=== PATIENT | male | born 1955 | race Caucasian/White ===

== ENCOUNTER 2024-01-03 13:25 | Day surgery (SDC) | payer MEDICARE, BC, SELFPAY ==
[2024-01-03 14:17] VITALS: BMI 26.8
--- NOTE | 2024-01-03 18:25 | ITS.CL.IMPLP ---
Roll Line Operator - Implant Loop
Implant Loop
Procedure Report:
Primary Physician: Zachary Craig MD
Primary Nuclear Station Operator: Dejuan Lima MD
Procedure Date: 01/03/2024
Procedure: Placement of a loop recorder.
History/Indication:
1. See office H&P for complete history.
2. Patient is a pleasant 68-year-old male with a past medical history significant for heart failure with reduced ejection fraction, severe MR, ischemic cardiomyopathy, mixed hyperlipidemia, ischemic stroke, MEAGAN, PAF who presents for elective ILR
insertion for long-term arrhythmia surveillance and monitoring given history and comorbidities.
Method:
After informed consent was obtained, the patient was brought to the EP laboratory holding area in a fasting, non-sedated state. Peripheral access was established. The left chest was prepared and draped in a sterile fashion. A 'time out' was
called. Local anesthesia was injected in the subcutaneous tissue. The ILR was injected under the skin. Topical skin adhesive was applied. Following the procedure, the patient was taken to the recovery area in stable condition. No complications
were noted.
Device Data:
[employer]; Model# [id number]; Serial# [id number]
Conclusion:
Successful placement of a loop recorder.
Recommendations:
1. Follow-up will be arranged in the [facility] in 7-10 days for wound check.
2. Routine ILR care.
3. Per Dr. Lima recommendations, DC Eliquis, start 81 mg ASA daily; if recurrence of AF, resume Eliquis indefinitely
Natanael Walker, DO
Clinical Cardiac Hasher Operator
cc: Zachary Craig MD; Dejuan Lima MD
== END 2024-01-03 16:14 | disposition home or self-care (01) ==
LOC: CATH 13:25
PROVIDERS: ATTENDING PHYSICIAN Internal Medicine Cardiovascular Disease; FAMILY PHYSICIAN Family Medicine; OTHER PHYSICIAN Internal Medicine Interventional Cardiology
DX: Z09 Encounter for follow-up examination after completed treatment for conditions other than malignant neoplasm (principal); I50.22 Chronic systolic (congestive) heart failure; I25.5 Ischemic cardiomyopathy; E78.2 Mixed hyperlipidemia; Z86.73 Personal history of transient ischemic attack (TIA), and cerebral infarction without residual deficits; I48.0 Paroxysmal atrial fibrillation
CPT/HCPCS: 33285; C1764

== ENCOUNTER 2024-03-11 16:24 | Inpatient (IN) | payer MEDICARE, BC, SELFPAY ==
[2024-03-11] VITALS (18 sets, daily range): BP systolic 82–121; BP diastolic 61–91; BMI 25.3; BMI 25.9
[2024-03-11 14:41] LABS: % Basophils 0.4 % (0-2); % Eosinophils 0.1 % (0-6); % Immature Granulocytes 0.4 % (0-0.5); % Lymphocytes 8.1 % (20.5-51.1); % Monocytes 8.3 % (1.7-9.3); % Neutrophils 82.7 % (42.2-75.2); Absolute Lymphocytes 0.8 10^3/uL (1.2-3.4); Absolute Monocytes 0.8 10^3/uL (0.1-0.6); Absolute Neutrophils 8.1 10^3/uL (1.4-6.5); Hematocrit 40.8 % (39.0-52.0); Hemoglobin 13.8 g/dL (13.0-18.0); Mean Corp Hgb Conc. 33.8 g/dL (33.0-37.0); Mean Corpuscular Volume 91.7 fL (80.0-94.0); Mean Platelet Volume 10.3 fL (7.4-10.4); Nucleated Red Blood Cells % 0 % (-); Platelet Count 160 10^3/uL (130-400); Red Blood Cell Count 4.45 10^6/uL (4.70-6.10); Red Cell Dist. Width 12.9 % (11.5-14.5); White Blood Cell Count 9.9 10^3/uL (4.8-10.8)
--- NOTE | 2024-03-11 14:41 | ED.GENMED ---
History of Present Illness
General
Chief Complaint: Heart Rate Problem
Source: patient and spouse
Exam Limitations: none
Time Seen by Provider: 03/11/24 14:21
History of Present Illness
History of Present Illness:
Patient with recent diagnosis of atrial fibrillation/flutter. Started Eliquis 4 days ago. Scheduled for JOHN cardioversion next week. Has remained with a heart rapid heartbeat 1 60-200 last 4 to 5 days. Borderline blood pressure. However started
feeling ill today. Tested positive for COVID. No chest pain or shortness of breath.
Past History
Past History
ED Past Medical History: Arrthythmia, CAD and CVA
ED Past Surgical History: Cardiac (Cardiac stent) and Other (Unavailable)
Social History
Tobacco: Former smoker
Alcohol: None
Drug: None
Personal:
Living: with family
Family History
Family History: Negative Diabetes, Hypertension or CAD
Review of Systems
Review of Systems
All Other Systems: Not applicable
Constitutional: Reports fever; Denies chills
Respiratory: Denies cough or trouble breathing
Cardiac: Denies chest pain
Phy Exam
Physical Exam
Physical Exam:
GENERAL: Alert and oriented in no apparent distress
EYE: Orbits normal.
NECK: Supple, no significant adenopathy.
ENT: Pharynx without erythema
CARDIAC: Tachycardic and regular no murmur
LUNGS: No respiratory distress. Some rhonchi in the bases
ABDOMEN: Soft, without focal tenderness or distention
NEUROLOGICAL: Alert and oriented , grossly non-focal
SKIN: Warm and dry, no rash or lesion, no discoloration, skin intact.
MUSCULOSKELETAL: No edema,no deformity.Good color
PSYCH: Normal and appropriate interaction.
Course
Orders/Labs/Results
Orders:
Orders
03/11/24 Lunch
Cholesterol Lowering
At Your Request: Full Participation
Does patient need a safe tray?: No
Cholesterol Lowering: Sodium, 2 Gram
03/11/24 13:57
ECG [Electrocardiogram (*1)] Urgent
Reason for Study: Tachycardia
03/11/24 13:58
EKG- Treatment ONCE
03/11/24 14:23
Complete Blood Count/With Diff Urgent
Comprehensive Metabolic Panel Urgent
NT-proBNP Urgent
Comment: PRO BNP ADDED ON BY FLOOR 3:40PM 03-11-24
Troponin I Urgent
03/11/24 14:37
CXR Port [CR Chest Portable - 1 View] Urgent
Comment:
Reason For Exam: aflutter. covid pos
Reason Study Needs to be Portable: Other
03/11/24 14:41
COVID-19 Antigen Urgent
Source: Nasal Swab
03/11/24 15:18
Diltiazem 125 mg/125 ml Nss [Cardizem] 125 mg in 125 ml IV NOW
Initial dose in mg/hr, then titrate:: 5
Titrate to keep:: Heart rate 80-100 bpm
Titrate by mg/hr:: 5 mg/hr
Frequency of titrations (minutes):: 15
Maximum dose in mg/hr:: 15
03/11/24 15:38
Add On- LAB Urgent
Tests Added?: pro-BNP
03/11/24 16:00
Admit/Transfer Patient As Directed
Co-Sign Provider:
Level of Care: Inpatient admission
Assign to:: Telemetry
Physician / Group: Dean richards - hospitalists
Diagnosis: rapid Afib
Reason for Telemetry: Medication for Arrhythmia
Date to Stop Telemetry: 03/13/24
Time to Stop Telemetry: 11:00
Reason for Hospitalization: Afib with RVR - IV Cardizem
Expected length of stay greater than two midnights?: Yes
ELOS- Estimated Length of Stay in days: 3
I certify the patient meets the requirements for IP care: Yes
PRN Pain Medication Management As Directed
May give lesser potent ordered pain med per pt: Yes
preference::
Protocol:: Medication orders for pain may be administered in a
manner that supports deferring to patient preference
when the pt is:
- Requesting an ordered lesser potent pain medication.
Least to most potent pain medications are defined
as: acetaminophen < NSAID < tramadol < opioids
(morphine, oxycodone, hydromorphone).
- Requesting a lesser dose of the same medication IF
ORDERED.
- Requesting a less intrusive route of administration
if both routes are prescribed by the provider (PO <
IV).
03/11/24 16:01
Code Status As Directed
Resuscitation Status: Full Code
03/11/24 17:47
Bisacodyl [Dulcolax] 10 mg RECTAL [id number] PRN
Docusate W/Senna [Senokot-S] 1 tablet PO BIDPRN PRN
Ipratropium/Albuterol Sulfate [Duoneb] 3 ml INH R Q4HPRN PRN
Ondansetron Injectable [Zofran] 4 mg IV Q6HPRN PRN
Polyethylene Glycol Powder [Miralax] 17 grams PO DAILYPRN PRN
03/11/24 17:47
CARDIOLOGY CONSULT Routine
Consulting Provider: Erick Montano
Was physician already notified: Yes
Activity As Directed
Activity Level: As Tolerated
Intake/ Output As Directed
Frequency: q12h
Pneumatic Compression Sleeves As Directed
Type: Knee high
Precautions As Directed
Type of Precautions: Airborne
Droplet
Vital Signs As Directed
Frequency: Per unit guidelines
Weight As Directed
Frequency: Daily
DX Deep Vein Thrombosis Video Routine
03/11/24 17:55
Acetaminophen [Tylenol] 500 mg PO Q6HPRN PRN
03/11/24 20:00
Apixaban [Eliquis] 5 mg PO BID
03/11/24 21:00
Troponin I Q6H
03/12/24 03:00
Troponin I Q6H
03/12/24 06:00
Basic Metabolic Panel IN AM
Complete Blood Count/No Diff IN AM
TSH Reflex To Free T4 IN AM
03/12/24 08:00
Atorvastatin [Lipitor] 80 mg PO DAILY
03/13/24 11:00
DC Protocol for Telemetry ONCE
Abnormal Lab Results
03/11/24 03/11/24
14:23 14:41
RBC 4.45 L 10^6/uL
(4.70-6.10)
Absolute Neuts (auto) 8.1 H 10^3/uL
(1.4-6.5)
Absolute Lymphs (auto) 0.8 L 10^3/uL
(1.2-3.4)
Absolute Monos (auto) 0.8 H 10^3/uL
(0.1-0.6)
Neutrophils % 82.7 H %
(42.2-75.2)
Lymphocytes % 8.1 L %
(20.5-51.1)
BUN 30 H mg/dl
(9-20)
Glucose 119 H mg/dl
(70-99)
AST 61 H U/L
(17-59)
ALT 80 H U/L
(0-50)
Troponin I 0.040 H* ng/ml
SARS-CoV-2 Antigen Positive A
(Negative)
03/11/24 14:23
03/11/24 14:23
Vital Signs
Initial and Last Documented VS:
Initial Vital Signs
Temp Pulse Resp BP Pulse Ox
99.4 F 169 20 114/81 97
03/11/24 13:54 03/11/24 13:54 03/11/24 13:54 03/11/24 13:54 03/11/24 13:54
Last Documented Vital Signs
Temp Pulse Resp BP Pulse Ox
100.1 F 89 18 121/68 99
03/11/24 18:12 03/11/24 18:12 03/11/24 18:12 03/11/24 18:12 03/11/24 18:12
*Radiology
Radiology exam reviewed: radiology read reviewed (Possible mild CHF)
*Pulse Oximetry
Patient hypoxic: no
*EKG
Interpreted by ED Provider?: Yes
Interpretation: abnormal
Comparison EKG: changes noted
Heart Rate: 172
Rate: tachycardiac
Rhythm: atrial flutter
[place]: normal axis
QRS Pattern: normal QRS
Ischemia: non-specific ST changes
*Warehouse Engineer Interpretation
Rate: tachycardiac
Interpretation: abnormal
Heart Rate: 142
Rhythm: atrial flutter
*Critical Care Note
Total Time (30-74mins, 75-104mins- exclusive of procedures): Not Applicable
Update Note
Update Note:
Atrial flutter/RVR prolonged. Not responding metoprolol. Warrants inpatient management and rate control or possible antiarrhythmic. Has not been on anticoagulation long enough for a routine cardioversion. Secondary complicated by COVID. Stable
from a COVID standpoint
ED Attending Note
-
Portions of this chart may have been created with voice recognition software.� Occasional wrong word or��sound alike� substitutions may have occurred due to the inherent limitations of voice recognition software.
Discharge Plan
Departure
Patient Disposition: Admit
Date of Disposition: 03/11/24
Time of Disposition: 14:44
Presentation/result/management discussed w/ accepting MD/DO: Cardiology
Discharge Problem:
Atrial flutter/RVR, Acute COVID infection
Interventions
Interventions:
*Risk Screen - Suicide Last Done: 03/11/24 14:11
*General Assessment Last Done: 03/11/24 14:11
*Neglect/Abuse Screening Last Done: 03/11/24 14:11
ED- Fall Risk Assessment Last Done: 03/11/24 14:15
*ED COVID-19 Vaccine History Last Done: 03/11/24 14:11
*Nursing Disposition Last Done: 03/11/24 17:44
ED- Cardiac Assessment Last Done: 03/11/24 14:15
ED- Pulmonary Assessment Last Done: 03/11/24 14:15
Discharge Date and Time
Discharge Date/Time: 03/11/24 17:45
[2024-03-11 14:49] LABS: ALT (SGPT) 80 U/L (0-50); AST (SGOT) 61 U/L (17-59); Albumin 4.4 g/dl (3.5-5.0); Alkaline Phosphatase 71 U/L (38-126); Blood Urea Nitrogen 30 mg/dl (9-20); Calcium 9.5 mg/dl (8.4-10.2); Carbon Dioxide 23 mmol/L (22-30); Chloride 106 mmol/L (98-107); Estimated Creatinine Clearance 73 ml/min; Glucose 119 mg/dl (70-99); Potassium 4.4 mmol/L (3.5-5.1); Sodium 139 mmol/L (135-145); Total Bilirubin 0.9 mg/dl (0.2-1.3); Total Protein 6.7 g/dl (6.3-8.2); eGFR > 60.00
[2024-03-11 14:56] LABS: COVID-19 Antigen Positive (Negative)
--- NOTE | 2024-03-11 15:14 | CON.CAR ---
Addendum entered and electronically signed by Erick Montano DO 03/11/24 16:50:
I saw and examined the patient.
The Mid Level Business Analyst's note was reviewed and I agree with the note.
Comment:
Plan:
IV Cardizem for rate control while undergoing tx for COVID
May consider JOHN/cv inpt vs outpt pending clinical course. Eval Mitraclip at time of JOHN
check pBNP
Monitor volume status
Discussed with primary service and ER
Original Note:
Consultation
Consultation Request
Date/Time Consultation Requested: 03/11/24
Date/Time Consultation Performed: 03/11/24
Requesting Provider: Dr. Nguyen in the ER
Performing Provider: Dr. Montano
Reason for Consultation: Afib/flutter with RVR
Medical History
-
History of Present Illness:
Patient presents to with ongoing rapid atrial flutter and is being admitted with COVID and rapid HR so cardiology has been consulted. Patient has a complicated PMH, he presented to ER on 06/03/19 in the setting of an acute inferior wall AZ. He
was taken urgently to the Ref[facility]eration [facility] and was found to have a circumflex lesion and severe MR. A JOHN was urgently performed in the Ref[facility] and an urgent CT surgical consult was performed. The mid circumflex was stented and his MR was moderate to
severe at that time. During the hospitalization he decompensated with cardiogenic shock and was intubated. [facility] and was [facility] on ECM[facility]. While there he suffered a stroke with a right field cut vision loss and
hemiparesis. He also had symptoms of apraxia and expressive aphasia. Also during that time he had a fall and suffered a neck injury. He was eventually diagnosed with atrial fibrillation and was started on Eliquis. He was eventually discharged
home, but returned to ER on 10/11/19 with weight gain and acute heart failure. He was presenting as acute heart failure with severe mitral regurgitation and was transferred to [facility] where he eventually had MitraClip, of note the
implant team lost access of the transseptal device after the first clip was placed, but by intraoperative JOHN his MR had improved to a degree the day did not feel there is the need for a second clip and the procedure was ended. Following that he
seemed to be doing well and was eventually able to wean from Keppra that had been started for seizures around the time of the stroke. He also had no symptomatic recurrence of atrial arrhythmia and the decision was made earlier this year to stop
anticoagulation and place a Linq monitor. He was noted to have a recurrence of atrial flutter starting on 03/05/24 and the patient was called the following morning and asked to restart Eliquis. He was seen in the office on 03/09/2024 and was started
on Toprol-XL. Interrogation of his Linq showed that his heart rate was ranging from the 70s to the 140s. Patient then saw his PCP today because he felt ill and tested positive for COVID, but it was also noted that his heart rate was in the 160s
and he was referred to [facility].
PMH:
Paroxysmal typical atrial flutter
Paroxysmal atrial fibrillation
previous amiodarone therapy stopped due to elevated LFTs 09/2019
Newer start to OAC with Eliquis since 03/06/24
Eliquis previously stopped due to lack of recurrent atrial arrhythmia and patient was monitored for recurrence via Linq monitor since 01/03/24
Chronic HFrEF
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
s/p MitraClip for severe MR at [facility] 09/2019
CAD
large inferior and lateral wall AZ complicated by cardiogenic shock and ARDS 05/2019
s/p 3.5 mm Xience to Circ 06/03/19
Previous [facility] MR, cardiogenic shock, ECMO and CVA with [facility]
h/o left occipital, lateral temporal and left parietal lobe CVA [facility] while on ECMO 09/2019
s/p VDRF with respiratory failure with large symptomatic right pleural effusion s/p intubation 10/12/19, Bronc 10/13/19, extubated 10/15/19
h/o Seizure disorder by EEG, Keppra stopped without recurrence of seizure since 12/2021
HIT positive
Past Medical History
Past Medical History: Other (in HPI)
Past Surgical History: Other (PEG and trach 2019, ECMP 2019, s/p MitraClip 10/28/19)
Social History
Tobacco: Non-Smoker
Alcohol: Occasional (couple of times a month)
Drug: None
Personal:
Living: With Family
Family History
Family History: Hypertension
Allergies / Home Medications
Allergy/AdvReac Type Severity Reaction Status Date / Time
adhesive tape Allergy Unknown Verified 03/11/24 13:57
heparin Allergy HIT Verified 03/11/24 13:57
positive
shellfish derived Allergy Unknown Verified 03/11/24 13:57
�Medication �Instructions �Recorded �Confirmed �Type
atorvastatin 80 mg tablet 80 mg PO DAILY High cholesterol 10/11/19 03/11/24 History
lisinopril 2.5 mg tablet 2.5 mg PO DAILY Blood clot 10/11/19 03/11/24 History
prevention/tx
acetaminophen 500 mg oral powder 500 mg PO Q6HPRN PRN mild pain 03/11/24 03/11/24 History
packet (Tylenol Extra Strength)
apixaban 5 mg tablet (Eliquis) 5 mg PO BID 03/11/24 03/11/24 History
metoprolol succinate 25 mg 25 mg PO BID 03/11/24 03/11/24 History
tablet,extended release 24 hr
tadalafil 20 mg tablet 20 mg PO DAILYPRN PRN ed 03/11/24 03/11/24 History
Review of Systems
-
History Source: Patient
All other systems: Negative unless noted
Physical Exam
Vital Signs
Temp Pulse Resp BP Pulse Ox
99.4 F 144 20 105/78 99
03/11/24 13:54 03/11/24 15:00 03/11/24 15:00 03/11/24 15:00 03/11/24 14:00
GEN: NAD. AAOx3
HEENT: EOMI, mmm
LUNGS: No audible wheeze
CV: Rapid and regularly irregular, S1/S2, 2/6 HSM
ABD: soft, BS+, NT, ND
EXT: No clubbing, cyanosis, lesions or edema B/L
NEURO: Gross non-focal
SKIN: Warm, dry and pink. No rash
Lab Results
03/11/24 14:23
03/11/24 14:23
Troponin I 0.040 ng/ml H* 03/11/24 14:23
Impression / Plan
-
PCP: Dr. Zachary Craig
Cardiology: Dr. Lima
Impression:
Paroxysmal typical atrial flutter with RVR
Paroxysmal atrial fibrillation
previous amiodarone therapy stopped due to elevated LFTs 09/2019
Newer start to OAC with Eliquis since 03/06/24
Eliquis previously stopped due to lack of recurrent atrial arrhythmia and patient was monitored for recurrence via Linq monitor since 01/03/24
Chronic HFrEF
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
s/p MitraClip for severe MR at [facility] 09/2019
CAD
large inferior and lateral wall AZ complicated by cardiogenic shock and ARDS 05/2019
s/p 3.5 mm Xience to Circ 06/03/19
Previous admission forsev MR, cardiogenic shock, ECMO and CVA [facility]
h/o left occipital, lateral temporal and left parietal lobe CVA [facility] while on ECMO 09/2019
s/p VDRF with respiratory failure with large symptomatic right pleural effusion s/p intubation 10/12/19, Bronc 10/13/19, extubated 10/15/19
h/o Seizure disorder by EEG, Keppra stopped without recurrence of seizure since 12/2021
HIT positive
Echo 10/12/19: EF visually 35-40%, 43% by modified biplane method, inferior, lateral and inferolateral hypokinesis. Right ventricle is at least moderately dilated with mildly reduced systolic function. Moderate to severe, likely severe mitral
regurgitation. Moderate to severe tricuspid regurgitation. Severe pulmonary hypertension with pulmonary artery pressure 79-84 mmHg.
Plan:
-Patient presents to with ongoing rapid atrial flutter and is being admitted with COVID and rapid HR so cardiology has been consulted. Patient has a complicated PMH, he presented to ER on 06/03/19 in the setting of an acute inferior wall AZ.
He was taken urgently to the [facility] and was found to have a circumflex lesion and severe MR. A JOHN was urgently performed in the Refrigeration Specialist and an urgent CT surgical consult was performed. The mid circumflex was stented and his MR was moderate to
severe at that time. During the hospitalization he decompensated with cardiogenic shock and was intubated. He [facility] was [facility] and was placed on ECMO. While there he suffered a stroke with a right field cut vision loss and
hemiparesis. He also had symptoms of apraxia and expressive aphasia. Also during that time he had a fall and suffered a neck injury. He was eventually diagnosed with atrial fibrillation and was started on Eliquis. He was eventually discharged
home, but returned to ER on 10/11/19 with weight gain and acute heart failure. He was presenting as acute heart failure with severe mitral regurgitation and was transferred to [facility] where he eventually had MitraClip, of note the
implant team lost access of the transseptal device after the first clip was placed, but by intraoperative JOHN his MR had improved to a degree the day did not feel there is the need for a second clip and the procedure was ended. Following that he
seemed to be doing well and was eventually able to wean from Keppra that had been started for seizures around the time of the stroke. He also had no symptomatic recurrence of atrial arrhythmia and the decision was made earlier this year to stop
anticoagulation and place a Linq monitor. He was noted to have a recurrence of atrial flutter starting on 03/05/24 and the patient was called the following morning and asked to restart Eliquis. He was seen in the office on 03/09/2024 and was started
on Toprol-XL. Interrogation of his Linq showed that his heart rate was ranging from the 70s to the 140s. Patient then saw his PCP today because he felt ill and tested positive for COVID, but it was also noted that his heart rate was in the 160s
and he was referred to [facility].
-ECG reviewed by me looks like rapid atrial flutter. Agree with Cardizem gtt and recommend 10 mg/hr
-Will hold lisinopril to allow for room on BP to adjust Cardizem gtt
-If patient fails to convert to SR and HR cannot be controlled then will consider a JOHN/CV prior to d/c
-Cont Eliquis 5 mg BID (age 69, Cre 1.0, wt 81.6 kg)
-Patient was previously on amiodarone in 2019, but it was stopped on readmission in 09/2019 due to elevated LFTs, but this was also in the setting of acute HF. Would not start AAD right now, follow rate control efforts for now.
-Patient with previous severe MR that was treated with a MitraClip at [facility] in 09/2019.
-COVID symptoms are mild
-Add on pro-BNP
-He has a h/o HIT.
--- NOTE | 2024-03-11 15:32 | HPS.HSE ---
Family Physician
-
Family Physician: Zachary Craig
Chief Complaint
-
heart rate problem
History of Present Illness
69 y/o M hx of recent diagnosis of Afib/Aflutter (recently started on Eliquis and planned for JOHN/CV next week) presents to ER with rapid HR of 160-200. Patient reports it has been like this for 4-5 days. Also reports lower than normal BP. no chest
pain. Today this morning he felt ill with fatigue and myalgias and was found to be COVID positive at home testing. No other complaints.
in ER, noted to be in rapid Afib - started on IV Cardizem.
Medical History
Past Medical History
Past Medical History: Reports Other ( Afib/Aflutter (recently started on Eliquis and planned for JOHN/CV next week) )
Past Surgical History: Reports Cardiac (mitraclip 2020)
Social History
Tobacco: Non-smoker
Alcohol: None
Drug: None
Personal:
Living: With Family
Family History
Family History: Not pertinent
Allergies / Home Medications
Allergies reflects when Allergies were last updated in [employer].
Home Medications with original date entered in [employer]
Allergy/Medication List:
Allergies
Allergy/AdvReac Type Severity Reaction Status Date / Time
adhesive tape Allergy Unknown Verified 03/11/24 13:57
heparin Allergy HIT Verified 03/11/24 13:57
positive
shellfish derived Allergy Unknown Verified 03/11/24 13:57
Home Medications
atorvastatin 80 mg tablet 80 mg PO DAILY High cholesterol 10/11/19
lisinopril 2.5 mg tablet 2.5 mg PO DAILY Blood clot prevention/tx 10/11/19
acetaminophen 500 mg oral powder packet (Tylenol Extra Strength) 500 mg PO Q6HPRN PRN mild pain 03/11/24
apixaban 5 mg tablet (Eliquis) 5 mg PO BID 03/11/24
metoprolol succinate 25 mg tablet,extended release 24 hr 25 mg PO BID 03/11/24
tadalafil 20 mg tablet 20 mg PO DAILYPRN PRN ed 03/11/24
Review of Systems
-
A 12 point ROS was completed and negative except as noted: Yes
Physical Exam
Vital Signs
Vital Signs
Temp Pulse Resp BP Pulse Ox
99.4 F 144 20 105/78 99
03/11/24 13:54 03/11/24 15:00 03/11/24 15:00 03/11/24 15:00 03/11/24 14:00
Physical Exam
General: No Apparent Distress
HEENT: NormoCephalic and Anicteric
Cardiac: Irregular Rhythm
GI: Soft and Non Tender
Neuro: AO x 3
Hematologic/Lymphatic: No Lymphadenopathy
Psych: Confused
Laboratory Results
-
03/11/24 14:23
03/11/24 14:23
Laboratory Results
Total Bilirubin 0.9 mg/dl (0.2-1.3) 03/11/24 14:23
AST 61 U/L (17-59) H 03/11/24 14:23
ALT 80 U/L (0-50) H 03/11/24 14:23
Alkaline Phosphatase 71 U/L (38-126) 03/11/24 14:23
Troponin I 0.040 ng/ml H* 03/11/24 14:23
Data Reviewed
-
Medical Tests (Nuc Med, Echo, EKG etc): Report Reviewed by me, Discussed with Patient and Discussed with Family
Lab Data: Labs Reviewed by me, Discussed with Patient and Discussed with Family
Impression/Plan
-
Assessment:
rapid parox Afib/Aflutter
- start IV Cardizem drip @ 5/hr
- continue Eliquis
- planned for JOHN/CV next week but may require postponement with COVID+ status
- DCA cards consulting
possible mild acute HFrEF
Hx of MR and mitraclip
- BNP pending
- CXR: Mildly increased interstitial markings bilaterally which may represent mild interstitial edema. No focal airspace disease. No significant pleural effusions.
- consider IV diuretic once HR/BP controlled
COVID+ infection
- not hypoxic
- would continue conservative measures and isolation protocol
Non-ischemic myocardial injury from acute A.fib
- trend trop to peak
HLD - statin
Essential HTN
- holding BB/KLAUDIA
DVT ppx: Eliquis
Code: Full
[2024-03-11] MEDS: CARDIZEM 125 IV ×2 (15:37→18:18)
[2024-03-11 16:30] LABS: NT-proBNP 5510 pg/ml
--- NOTE | 2024-03-11 19:15 | PTCARENOTE ---
Addendum entered by Maggie Latham RN 03/12/24 03:58:
Per MD order, Cardizem gtt infusing at 5mg/hr.
Original Note:
Received handoff report from tarah RN. Pt admitted telemetry orders> Aflutter on the monitor, T 98.9, HR 89, RR 16, BP 103/68, pox 97% room air.
Spouse w/ pt at bedside. Plan of care reviewed.
--- NOTE | 2024-03-11 19:50 | PTCARENOTE ---
Patient's environmental monitoring technician alarming HR 140-170s. Patient accompanied by spouse in bathroom, performing HS hygiene. This RN notified both that HR is elevated and it would be best to either sit back in chair or rest in bed. Pt spouse states patient
will return to chair after they are finished care.
[2024-03-11] MEDS: ELIQUIS 5 MG PO (20:18)
--- NOTE | 2024-03-11 20:20 | PTCARENOTE ---
Patient continues to walk around room after this RN states HR elevates from 80-90s to 160-170s. IV assessed- site flushes well, good blood return. Cardizem gtt infusing per order. Eliquis administered. Pt resting in chair.
--- NOTE | 2024-03-11 20:20 | PTCARENOTE ---
Patient continues to walk around room after this RN states HR elevates from 80-90s to 160-170s. INT assessed- site flushes well, good blood return. Cardizem gtt infusing per order. Eliquis administered. Pt resting in chair.
[2024-03-11 23:17] LABS: Troponin I 0.062 ng/ml
--- NOTE | 2024-03-11 23:48 | PTCARENOTE ---
IV team on floor. This RN requested IV access to be assessed. Per IV team, there are no issues with IV.
[2024-03-11] MEDS: TYLENOL 500 MG PO (23:59)
--- NOTE | 2024-03-12 00:10 | PTCARENOTE ---
House CASE ADVOCATE notified of patient's HR. Blood pressure stable, Temperature 99.0. at 2345, BMP and Mag level ordered. at 2359, Tylenol 500mg administered.
[2024-03-12 01:06] LABS: Blood Urea Nitrogen 29 mg/dl (9-20); Calcium 9.2 mg/dl (8.4-10.2); Carbon Dioxide 24 mmol/L (22-30); Chloride 105 mmol/L (98-107); Estimated Creatinine Clearance 73 ml/min; Glucose 106 mg/dl (70-99); Magnesium 1.9 mg/dl (1.6-2.3); Potassium 4.1 mmol/L (3.5-5.1); Sodium 137 mmol/L (135-145); eGFR > 60.00
[2024-03-12 03:04] VITALS: BP 111/73
--- NOTE | 2024-03-12 03:10 | PTCARENOTE ---
Patient third Troponin due. Patient agitated because he was awoken from a deep sleep. HR increased from 100s to 170s. House CONTROLLED AREA CHECKER made aware. No new orders at this time.
[2024-03-12 03:54] LABS: Troponin I 0.059 ng/ml
--- NOTE | 2024-03-12 04:00 | PTCARENOTE ---
Troponin trending down: 0.040- 0.062- 0.059
HR currently 80s-100s.
[2024-03-12 07:00] VITALS: BP 110/72
[2024-03-12 07:13] LABS: Hematocrit 37.3 % (39.0-52.0); Hemoglobin 13.2 g/dL (13.0-18.0); Mean Corp Hgb Conc. 35.4 g/dL (33.0-37.0); Mean Corpuscular Hgb 31.6 pg (27.0-31.0); Mean Corpuscular Volume 89.2 fL (80.0-94.0); Mean Platelet Volume 10.5 fL (7.4-10.4); Platelet Count 141 10^3/uL (130-400); Red Blood Cell Count 4.18 10^6/uL (4.70-6.10); White Blood Cell Count 8.8 10^3/uL (4.8-10.8)
[2024-03-12 07:35] LABS: Blood Urea Nitrogen 26 mg/dl (9-20); Calcium 9.1 mg/dl (8.4-10.2); Carbon Dioxide 25 mmol/L (22-30); Chloride 105 mmol/L (98-107); Estimated Creatinine Clearance 91 ml/min; Glucose 91 mg/dl (70-99); Potassium 3.8 mmol/L (3.5-5.1); Sodium 137 mmol/L (135-145); eGFR > 60.00
[2024-03-12 08:04] LABS: TSH Reflex To Free T4 0.63 uIU/ml (0.47-4.68)
[2024-03-12] MEDS: LIPITOR 80 MG PO (08:30)
[2024-03-12] MEDS: ELIQUIS 5 MG PO ×2 (08:30→20:08)
[2024-03-12 08:55] LABS: ALT (SGPT) 75 U/L (0-50); AST (SGOT) 45 U/L (17-59); Albumin 3.9 g/dl (3.5-5.0); Alkaline Phosphatase 68 U/L (38-126); Total Bilirubin 0.9 mg/dl (0.2-1.3); Total Protein 6.2 g/dl (6.3-8.2)
--- NOTE | 2024-03-12 10:35 | CM ---
CM following re: discharge planning.
Reviewed pt's chart, met with pt and pt's spouse at bedside.
Pt is a 69 year old male, admitted with primary dx of Rapid A-Fib. COVID+.
Pt reports he lives with spouse in a 2SH, 3 steps to enter, has 2 supportive children. Pt described himself as independent in all areas [employer], drives, retired. No DME, VN or SNF history.
PCP: Ravi Craig
Pharmacy: [facility]
D/C plan: home with anticipated no needs. Spouse to transport at discharge.
CM will follow with discharge plan updates as hospitalization progresses
--- NOTE | 2024-03-12 11:06 | W.PN.HOSP.TC ---
Today's Communication/Plan
-
oral cardizem and monitor HR
Assessment / Plan
Assessment / Plan
Assessment:
rapid parox Afib/Aflutter
- continue IV Cardizem drip @ 5/hr, transition to Cardizem CD PO BID and stop drip in 1 hour
- continue Eliquis
- planned for JOHN/CV next week; may need sooner if no improvement in HRs with rate control strategy
- DCA cards following
possible mild acute HFrEF
Hx of MR and mitraclip
- BNP 5510
- CXR: Mildly increased interstitial markings bilaterally which may represent mild interstitial edema. No focal airspace disease. No significant pleural effusions.
- consider IV diuretic once HR/BP controlled
COVID+ infection
- not hypoxic
- would continue conservative measures and isolation protocol x 5 days
Non-ischemic myocardial injury from acute A.fib
- trend trop to peak
HLD - statin
Essential HTN
- holding BB/KLAUDIA
DVT ppx: Eliquis
Code: Full
Anticipated Discharge: Within 24 hours
Subjective/Interval History
-
Date of Service: March 12, 2024
no new complaints presently
Objective Data
-
Labs:
Laboratory Results
03/12/24 03/12/24
00:36 06:48
WBC 8.8
Hgb 13.2
Hct 37.3 L
Plt Count 141
Sodium 137 137
Potassium 4.1 3.8
Chloride 105 105
Carbon Dioxide 24 25
BUN 29 H 26 H
Creatinine 1.0 0.8
Glucose 106 H 91
Calcium 9.2 9.1
Total Bilirubin 0.9
AST 45
ALT 75 H
Alkaline Phosphatase 68
Vital Signs:
Vital Signs
Temp Pulse Resp BP Pulse Ox
99.0 F 86 16 110/72 96
03/12/24 07:00 03/12/24 07:00 03/12/24 07:00 03/12/24 07:00 03/12/24 07:00
Physical Exam
-
General: No Apparent Distress
HEENT: Normocephalic and Atraumatic
Respiratory: Clear to Auscultation; Negative Wheezes or Rales
Cardiac: Irregular Rhythm
GI: Soft
Genito-urinary: No Costovertebral Tender
Neuro: AO x 3
Hematologic / Lymphatic: No Lymphadenopathy
Psych: Calm
Data Reviewed
-
Total Time Spent with Patient (in minutes): 42
Labs: Labs Reviewed by me
[2024-03-12 11:09] VITALS: BP 111/54
[2024-03-12] MEDS: CARDIZEM CD 120 MG PO ×2 (11:10→20:08)
--- NOTE | 2024-03-12 12:41 | W.PN.CARDCBS ---
Addendum entered and electronically signed by Chico Ferguson MD 03/12/24 13:08:
I saw and examined the patient.
The Tube Making Machine Operator's note was reviewed and I agree with the note.
Comment:
GEN: No distress, awake, Ox3
HEENT: supple, anicteric, mmm
LUNGS: CTA, no wheezes/rales
CV: Reg, S1/S2, 2/6 apical syst mur, no gallop
ABD: soft, BS+, NT/ND
EXT: No edema
NEURO: Gross non-focal
SKIN: No rash
Plan:
Ventricular rates remain fast in atrial flutter. Will start Cardizem 120 mg p.o. twice daily and attempt to rate control while he still is COVID-positive.
I suspect he is volume overloaded as well. Will give Lasix 40 mg IV x 1.
Hopefully we can rate control him and then keep him scheduled for his JOHN cardioversion next . If he becomes unstable we may need to do his JOHN cardioversion as an inpatient.
I discussed this at length with him and his .
Continue Eliquis.
Original Note:
Today's Communication / Plan
-
Lasix 40 mg IV x1 now
Changed Cardizem gtt to Cardizem CD 120 mg BID
Outpatient CV, he tested positive for COVID on 03/11/24
Impression / Plan
-
PCP: Dr. Zachary Craig
Cardiology: Dr. Lima
Impression:
Paroxysmal typical atrial flutter with RVR
Paroxysmal atrial fibrillation
previous amiodarone therapy stopped due to elevated LFTs 09/2019
Newer start to OAC with Eliquis since 03/06/24
Eliquis previously stopped due to lack of recurrent atrial arrhythmia and patient was monitored for recurrence via Linq monitor since 01/03/24
Chronic HFrEF
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
s/p MitraClip for severe MR at [facility] 09/2019
CAD
large inferior and lateral wall [place] complicated by cardiogenic shock and ARDS 05/2019
s/p 3.5 mm Xience to Circ 06/03/19
Previous admission donya MR, cardiogenic shock, ECMO and CVA with transfer to [facility] 09/2019
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
s/p VDRF with respiratory failure with large symptomatic right pleural effusion s/p intubation 10/12/19, Bronc 10/13/19, extubated 10/15/19
h/o Seizure disorder by EEG, Keppra stopped without recurrence of seizure since 12/2021
HIT positive
Echo 10/12/19: EF visually 35-40%, 43% by modified biplane method, inferior, lateral and inferolateral hypokinesis. Right ventricle is at least moderately dilated with mildly reduced systolic function. Moderate to severe, likely severe mitral
regurgitation. Moderate to severe tricuspid regurgitation. Severe pulmonary hypertension with pulmonary artery pressure 79-84 mmHg.
Plan:
-HRs generally around 100 overnight while on Cardizem gtt at 5 mg/hr except when he was awakened for VS and HR increased to 170s, nursing notes reviewed and he was agitated at that time as well. Will stop Cardizem gtt and start Cardizem CD 120 mg
BID now. Follow on tele
-Patient was started on Toprol XL 25 mg daily just prior to admission, will try to manage HR with Cardizem CD for now, but could try adding back Toprol XL if needed.
-Outpatient dose of lisinopril is on hold to allow for higher BP while trying to control HR
-If HRs can be controlled then will consider d/c to home 03/13/24. Will plan on an outpatient JOHN/CV, need to check with computer lab para professional about when that can be electively scheduled following patient testing positive for COVID 03/11/24
-Cont Eliquis 5 mg BID (age 69, Cre 1.0, wt 81.6 kg)
-Patient was previously on amiodarone in 2019, but it was stopped on readmission in 09/2019 due to elevated LFTs, but this was also in the setting of acute HF. Would not start AAD right now, follow rate control efforts for now.
-Patient with previous severe MR that was treated with a MitraClip at [facility] in 09/2019.
-COVID symptoms are mild
-BNP 5500 which is lower than previous and he is stable on RA, but CXR suggested interstitial edema so will give a dose of Lasix 40 mg IV x1 now.
-He has a h/o HIT.
HPI: Patient presents to with ongoing rapid atrial flutter and is being admitted with COVID and rapid HR so cardiology has been consulted. Patient has a complicated PMH, he presented to ER on 06/03/19 in the setting of an acute inferior wall
[place]. He was taken urgently to the [facility] and was found to have a circumflex lesion and severe MR. A JOHN was urgently performed in the [facility] and an urgent CT surgical consult was performed. The mid circumflex was stented and his MR was
moderate to severe at that time. During the hospitalization he decompensated with cardiogenic shock and was intubated. He eventually was transferred to [facility] and was placed on ECMO. While there he suffered a stroke with a right field cut vision
loss and hemiparesis. He also had symptoms of apraxia and expressive aphasia. Also during that time he had a fall and suffered a neck injury. He was eventually diagnosed with atrial fibrillation and was started on Eliquis. He was eventually
discharged home, but returned to ER on 10/11/19 with weight gain and acute heart failure. He was presenting as acute heart failure with severe mitral regurgitation and was transferred to [facility] where he eventually had MitraClip, of
note the implant team lost access of the transseptal device after the first clip was placed, but by intraoperative JOHN his MR had improved to a degree the day did not feel there is the need for a second clip and the procedure was ended. Following
that he seemed to be doing well and was eventually able to wean from Keppra that had been started for seizures around the time of the stroke. He also had no symptomatic recurrence of atrial arrhythmia and the decision was made earlier this year to
stop anticoagulation and place a Linq monitor. He was noted to have a recurrence of atrial flutter starting on 03/05/24 and the patient was called the following morning and asked to restart Eliquis. He was seen in the office on 03/09/2024 and was
started on Toprol-XL. Interrogation of his Linq showed that his heart rate was ranging from the 70s to the 140s. Patient then saw his PCP today because he felt ill and tested positive for COVID, but it was also noted that his heart rate was in the
160s and he was referred to [facility].
Progress Note - Manager Speech
Subjective
Date of Service: March 12, 2024
He feels a bit better
Objective
Labs:
03/12/24 06:48
03/12/24 06:48
Labs
Hgb 13.2 g/dL (13.0-18.0) 03/12/24 06:48
Hct 37.3 % (39.0-52.0) L 03/12/24 06:48
Plt Count 141 10^3/uL (130-400) 03/12/24 06:48
Sodium 137 mmol/L (135-145) 03/12/24 06:48
Potassium 3.8 mmol/L (3.5-5.1) 03/12/24 06:48
BUN 26 mg/dl (9-20) H 03/12/24 06:48
Creatinine 0.8 mg/dL (0.7-1.3) 03/12/24 06:48
Glucose 91 mg/dl (70-99) 03/12/24 06:48
Troponins
03/11/24 03/11/24 03/12/24
14:23 22:33 03:10
Troponin I 0.040 H* 0.062 H* 0.059 H*
Vital Signs and I&O:
Vital Signs
Temp Pulse Resp BP Pulse Ox
98.6 F 109 20 111/54 98
03/12/24 11:09 03/12/24 11:10 03/12/24 11:09 03/12/24 11:10 03/12/24 11:09
Vital Signs
Temp Pulse Resp BP Pulse Ox
98.6 F 109 20 111/54 98
03/12/24 11:09 03/12/24 11:10 03/12/24 11:09 03/12/24 11:10 03/12/24 11:09
Physical Exam
Physical Exam
GEN: AAOx3
HEENT: EOMI
LUNGS: No audible wheeze
CV: Atrial flutter on tele
ABD: ND
EXT: No edema B/L
NEURO: Gross non-focal
SKIN: No rash
--- NOTE | 2024-03-12 13:17 | PTCARENOTE ---
Patient transitioned to PO Cardizem. Cardizem gtt discontinued (at 12:40), an hour and half following the oral administration.
[2024-03-12] MEDS: LASIX 40 MG IV (13:54)
[2024-03-12 15:20] VITALS: BP 94/56
[2024-03-12 19:23] VITALS: BP 101/60
[2024-03-12] MEDS: TYLENOL 500 MG PO (22:11)
[2024-03-12 22:55] VITALS: BP 113/82
[2024-03-13 03:20] VITALS: BP 132/75
[2024-03-13 07:00] VITALS: BP 119/85
[2024-03-13 08:23] VITALS: BMI 25.4
[2024-03-13] MEDS: CARDIZEM CD 120 MG PO ×2 (08:41→21:23)
[2024-03-13] MEDS: LIPITOR 80 MG PO (08:42)
[2024-03-13] MEDS: ELIQUIS 5 MG PO ×2 (08:42→21:23)
--- NOTE | 2024-03-13 09:37 | W.PN.HOSP.TC ---
Today's Communication/Plan
-
consider Amiodarone initiation, defer to Cardiology
Assessment / Plan
Assessment / Plan
Assessment:
rapid parox Afib/Aflutter
- s/p Cardizem drip, now on oral Cardizem
- remains with fast HR and rapid flutter, most likely will need Amiodarone
- continue Eliquis
- planned for JOHN/CV next week
- DCA cards following
possible mild acute HFrEF
Hx of MR and mitraclip
- BNP 5510
- CXR: Mildly increased interstitial markings bilaterally which may represent mild interstitial edema. No focal airspace disease. No significant pleural effusions.
- s/p IV Lasix x 1
COVID+ infection
- not hypoxic
- would continue conservative measures and isolation protocol x 5 days (isolation lifts Saturday morning)
Non-ischemic myocardial injury from acute A.fib
- trend trop to peak
HLD - statin
Essential HTN
- holding BB/KLAUDIA
DVT ppx: Eliquis
Code: Full
Anticipated Discharge: 24 - 48 hours
Subjective/Interval History
-
Date of Service: March 13, 2024
converted in rapid Aflutter this morning, HRs 160s
asymptomatic
no fever/chills/cough/SOB related to COVID
Objective Data
-
Vital Signs:
Vital Signs
Temp Pulse Resp BP Pulse Ox
98.9 F 172 18 119/85 94
03/13/24 07:00 03/13/24 08:41 03/13/24 07:00 03/13/24 08:41 03/13/24 07:00
I&O
03/12/24 03/13/24 03/14/24
06:59 06:59 06:59
Intake Total 1800 / 1800
Balance 1800 / 1800
Physical Exam
-
General: No Apparent Distress
HEENT: Normocephalic and Atraumatic
Respiratory: Negative Wheezes or Rales
Cardiac: Irregular Rhythm
GI: Soft and Nontender
Genito-urinary: No Costovertebral Tender
Musculoskeletal: No Edema
Neuro: AO x 3
Hematologic / Lymphatic: No Lymphadenopathy
Psych: Calm
Data Reviewed
-
Total Time Spent with Patient (in minutes): 45
Labs: Labs Reviewed by me
[2024-03-13 11:00] VITALS: BP 106/76
--- NOTE | 2024-03-13 12:30 | W.PN.CARDCBS ---
Addendum entered and electronically signed by Gerald Thomson MD 03/13/24 16:46:
I saw and examined the patient.
The METAL MOULDER or PA's note was reviewed and I agree with the note.
Comment: General: Well developed, well nourished in NAD.
Neck: Supple, no JVD, HJR, carotids +2 B/L, no bruits bilaterally.
Heart: Non displaced PMI, irregular, no murmurs, No S3, S4, no rubs.
Lungs: Scattered rhonchi
Extremities: No clubbing, cyanosis or edema bilaterally.
Neuro: Grossly nonfocal, awake, alert and oriented x3.
Remains with tachycardia at times which seems to be relatively asymptomatic. He continues to be treated for COVID. Will add amiodarone ( bp very low at present) and attempt to improve heart rate. Eventual CULLEN/cardioversion likely to be done as an
outpt on 03/19. Cullen is being done to evaluate MR and MV clip.
Original Note:
Today's Communication / Plan
-
Continue rate control with Cardizem CD 120mg BID
Start amiodarone 400mg TID
Continue Eliquis 5mg BID
CULLEN/CV eventually as OP once off COVID precautions
Impression / Plan
-
PCP: Dr. Zachary Craig
Cardiology: Dr. Lima
Impression:
Paroxysmal typical atrial flutter with RVR
Paroxysmal atrial fibrillation
previous amiodarone therapy stopped due to elevated LFTs 09/2019
Newer start to OAC with Eliquis since 03/06/24
Eliquis previously stopped due to lack of recurrent atrial arrhythmia and patient was monitored for recurrence via Linq monitor since 01/03/24
Chronic HFrEF
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
s/p MitraClip for severe MR at [facility] 09/2019
CAD
large inferior and lateral wall [place] complicated by cardiogenic shock and ARDS 05/2019
s/p 3.5 mm Xience to Circ 06/03/19
Previous admission for sev MR, cardiogenic shock, ECMO and CVA with transfer to [facility] 09/2019
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
s/p VDRF with respiratory failure with large symptomatic right pleural effusion s/p intubation 10/12/19, Bronc 10/13/19, extubated 10/15/19
h/o Seizure disorder by EEG, Keppra stopped without recurrence of seizure since 12/2021
HIT positive
Echo 10/12/19: EF visually 35-40%, 43% by modified biplane method, inferior, lateral and inferolateral hypokinesis. Right ventricle is at least moderately dilated with mildly reduced systolic function. Moderate to severe, likely severe mitral
regurgitation. Moderate to severe tricuspid regurgitation. Severe pulmonary hypertension with pulmonary artery pressure 79-84 mmHg.
Plan:
-Presented with rapid atrial flutter and COVID-19.
-Seen in the cardiology office 03/09 for recurrent atrial flutter. Restarted on Eliquis 03/06/2024.
-HRs have been difficult to control. Initially on cardizem gtt, however transitioned to Cardizem CD 120mg BID 03/12.
-On review of telemetry, HRs have remained rapid this AM, at times into the 170s
-Will start amiodarone 400mg TID. Patient previously stopped amiodarone due to elevated LFTs, however this was in the setting of acute HF. Will monitor.
-Follow QTc on EKG w/ starting amiodarone.
-OP lisinopril on hold to allow for higher BP while attempting HR control.
-Had been planned for CULLEN/CV next week, however will need to be pushed back until he is off of COVID precautions (14 days after diagnosis).
-Cont Eliquis 5 mg BID for anticoagulation.
-Patient with previous severe MR that was treated with a MitraClip at [facility] in 09/2019. Plan is to reassess during CULLEN.
-COVID symptoms are mild
-ProBNP 5500. s/p single dose of IV lasix 40mg 03/12. Remains stable on RA. No SOB.
-He has a h/o HIT.
HPI: Patient presents to with ongoing rapid atrial flutter and is being admitted with COVID and rapid HR so cardiology has been consulted. Patient has a complicated PMH, he presented to ER on 06/03/19 in the setting of an acute inferior wall
[place]. He was taken urgently to the [facility] and was found to have a circumflex lesion and severe MR. A CULLEN was urgently performed in the [facility] and an urgent CT surgical consult was performed. The mid circumflex was stented and his MR was
moderate to severe at that time. During the hospitalization he decompensated with cardiogenic shock and was intubated. He eventually was transferred to [facility] and was placed on ECMO. While there he suffered a stroke with a right field cut vision
loss and hemiparesis. He also had symptoms of apraxia and expressive aphasia. Also during that time he had a fall and suffered a neck injury. He was eventually diagnosed with atrial fibrillation and was started on Eliquis. He was eventually
discharged home, but returned to ER on 10/11/19 with weight gain and acute heart failure. He was presenting as acute heart failure with severe mitral regurgitation and was transferred to [facility] where he eventually had MitraClip, of
note the implant team lost access of the transseptal device after the first clip was placed, but by intraoperative CULLEN his MR had improved to a degree the day did not feel there is the need for a second clip and the procedure was ended. Following
that he seemed to be doing well and was eventually able to wean from Keppra that had been started for seizures around the time of the stroke. He also had no symptomatic recurrence of atrial arrhythmia and the decision was made earlier this year to
stop anticoagulation and place a Linq monitor. He was noted to have a recurrence of atrial flutter starting on 03/05/24 and the patient was called the following morning and asked to restart Eliquis. He was seen in the office on 03/09/2024 and was
started on Toprol-XL. Interrogation of his Linq showed that his heart rate was ranging from the 70s to the 140s. Patient then saw his PCP today because he felt ill and tested positive for COVID, but it was also noted that his heart rate was in the
160s and he was referred to [facility].
Progress Note - Adult School Counselor
Subjective
Date of Service: March 13, 2024
Objective
Labs:
03/12/24 06:48
03/12/24 06:48
Labs
Hgb 13.2 g/dL (13.0-18.0) 03/12/24 06:48
Hct 37.3 % (39.0-52.0) L 03/12/24 06:48
Plt Count 141 10^3/uL (130-400) 03/12/24 06:48
Sodium 137 mmol/L (135-145) 03/12/24 06:48
Potassium 3.8 mmol/L (3.5-5.1) 03/12/24 06:48
BUN 26 mg/dl (9-20) H 03/12/24 06:48
Creatinine 0.8 mg/dL (0.7-1.3) 03/12/24 06:48
Glucose 91 mg/dl (70-99) 03/12/24 06:48
Troponins
03/11/24 03/11/24 03/12/24
14:23 22:33 03:10
Troponin I 0.040 H* 0.062 H* 0.059 H*
Vital Signs and I&O:
Vital Signs
Temp Pulse Resp BP Pulse Ox
98.9 F 172 18 119/85 94
03/13/24 07:00 03/13/24 08:41 03/13/24 07:00 03/13/24 08:41 03/13/24 10:24
Vital Signs
Temp Pulse Resp BP Pulse Ox
98.9 F 172 18 119/85 94
03/13/24 07:00 03/13/24 08:41 03/13/24 07:00 03/13/24 08:41 03/13/24 10:24
Intake & Output
03/11/24 03/12/24 03/13/24 03/14/24
06:59 06:59 06:59 06:59
Intake Total 1800 / 1800
Balance 1800 / 1800
--- NOTE | 2024-03-13 13:33 | CM ---
Managing atrial flutter. Discharge Plan of Care: Home with no needs.
[2024-03-13 15:00] VITALS: BP 104/65
[2024-03-13] MEDS: PACERONE 400 MG PO ×2 (16:03→22:14)
[2024-03-13 19:14] VITALS: BP 108/66
[2024-03-13] MEDS: TYLENOL 500 MG PO (23:20)
[2024-03-13 23:22] VITALS: BP 111/74
[2024-03-14 03:31] VITALS: BP 99/67
[2024-03-14 07:00] VITALS: BP 113/74
--- NOTE | 2024-03-14 08:09 | W.PN.CARDCBS ---
Addendum entered and electronically signed by Gerald Thomson MD 03/14/24 11:49:
I saw and examined the patient.
The SURGICAL GARMENT ASSEMBLY SUPERVISOR or PA's note was reviewed and I agree with the note.
Comment: General: Well developed, well nourished in NAD.
Neck: Supple, no JVD, HJR, carotids +2 B/L, no bruits bilaterally.
Heart: Non displaced PMI, Irreg, no murmurs, No S3, S4, no rubs.
Lungs: Clear to auscultation bilaterally, no wheeze, rhonchi, rubs bilaterally,
normal expiratory phase.
Extremities: No clubbing, cyanosis or edema bilaterally.
Neuro: Grossly nonfocal, awake, alert and oriented x3.
Heart rate control in A-fib is much better controlled. Stable cardiology status for discharge. Will change amiodarone to 200 mg p.o. twice daily. He is planned for outpatient JOHN/cardioversion on 03/20 which will also evaluate mitral clip whether
a second MitraClip would be needed. Patient and understand increased risk of recurrent A-fib with cardioversion. Ideally amiodarone can be discontinued at some point but heart rate control was difficult as hypotension limited AV rebecca
blocking agents. d/w primary service and nursing - full gown and glove with N95 mask used for Covid pt
Original Note:
Today's Communication / Plan
-
Continue amiodarone and Diltiazem for rate control
Check EKG this AM to assess QTc
If stable, would discharge on amiodarone 200mg BID
Arranged for JOHN/CV 03/20 as long as ok per general labor forklift operator w/ covid precautions
Impression / Plan
-
PCP: Dr. Zachary Craig
Cardiology: Dr. Lima
Impression:
Paroxysmal typical atrial flutter with RVR
Paroxysmal atrial fibrillation
previous amiodarone therapy stopped due to elevated LFTs 09/2019
Newer start to OAC with Eliquis since 03/06/24
Eliquis previously stopped due to lack of recurrent atrial arrhythmia and patient was monitored for recurrence via Linq monitor since 01/03/24
Chronic HFrEF
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
s/p MitraClip for severe MR at [facility] 09/2019
CAD
large inferior and lateral wall KY complicated by cardiogenic shock and ARDS 05/2019
s/p 3.5 mm Xience to Circ 06/03/19
Previous admission for sev MR, cardiogenic shock, ECMO and CVA with transfer to [facility] 09/2019
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
s/p VDRF with respiratory failure with large symptomatic right pleural effusion s/p intubation 10/12/19, Bronc 10/13/19, extubated 10/15/19
h/o Seizure disorder by EEG, Keppra stopped without recurrence of seizure since 12/2021
HIT positive
Echo 10/12/19: EF visually 35-40%, 43% by modified biplane method, inferior, lateral and inferolateral hypokinesis. Right ventricle is at least moderately dilated with mildly reduced systolic function. Moderate to severe, likely severe mitral
regurgitation. Moderate to severe tricuspid regurgitation. Severe pulmonary hypertension with pulmonary artery pressure 79-84 mmHg.
Plan:
-Presented with rapid atrial flutter and COVID-19.
-Seen in the cardiology office 03/09 for recurrent atrial flutter. Restarted on Eliquis 03/06/2024.
-HRs have been difficult to control. Initially on cardizem gtt, however transitioned to Cardizem CD 120mg BID 03/12.
-Started on amiodarone 400mg TID 03/13. HRs improved overnight. Remains in atrial flutter.
-EKG pending this AM to reassess QTc with starting amiodarone.
-If EKG stable, would consider discharging patient on amiodarone 200mg BID.
-He is arranged for JOHN/CV 03/20. Will need to confirm if OK to keep this date given recent COVID diagnosis.
-Continue Eliquis 5mg BID.
-Patient with previous severe MR that was treated with a MitraClip at [facility] in 09/2019. Plan is to reassess during JOHN.
-OP lisinopril on hold due to hypotenison.
-COVID symptoms are mild
-ProBNP 5500. s/p single dose of IV lasix 40mg 03/12. Remains stable on RA. No SOB.
-He has a h/o HIT.
HPI: Patient presents to with ongoing rapid atrial flutter and is being admitted with COVID and rapid HR so cardiology has been consulted. Patient has a complicated PMH, he presented to ER on 06/03/19 in the setting of an acute inferior wall
KY. He was taken urgently to the [facility] and was found to have a circumflex lesion and severe MR. A JOHN was urgently performed in the [facility] and an urgent CT surgical consult was performed. The mid circumflex was stented and his MR was
moderate to severe at that time. During the hospitalization he decompensated with cardiogenic shock and was intubated. He eventually was transferred to [facility] and was placed on ECMO. While there he suffered a stroke with a right field cut vision
loss and hemiparesis. He also had symptoms of apraxia and expressive aphasia. Also during that time he had a fall and suffered a neck injury. He was eventually diagnosed with atrial fibrillation and was started on Eliquis. He was eventually
discharged home, but returned to ER on 10/11/19 with weight gain and acute heart failure. He was presenting as acute heart failure with severe mitral regurgitation and was transferred to [facility] where he eventually had MitraClip, of
note the implant team lost access of the transseptal device after the first clip was placed, but by intraoperative JOHN his MR had improved to a degree the day did not feel there is the need for a second clip and the procedure was ended. Following
that he seemed to be doing well and was eventually able to wean from Keppra that had been started for seizures around the time of the stroke. He also had no symptomatic recurrence of atrial arrhythmia and the decision was made earlier this year to
stop anticoagulation and place a Linq monitor. He was noted to have a recurrence of atrial flutter starting on 03/05/24 and the patient was called the following morning and asked to restart Eliquis. He was seen in the office on 03/09/2024 and was
started on Toprol-XL. Interrogation of his Linq showed that his heart rate was ranging from the 70s to the 140s. Patient then saw his PCP today because he felt ill and tested positive for COVID, but it was also noted that his heart rate was in the
160s and he was referred to [facility].
Progress Note - Quality Control Director
Subjective
Date of Service: March 14, 2024
Objective
Labs:
03/12/24 06:48
03/12/24 06:48
Labs
Hgb 13.2 g/dL (13.0-18.0) 03/12/24 06:48
Hct 37.3 % (39.0-52.0) L 03/12/24 06:48
Plt Count 141 10^3/uL (130-400) 03/12/24 06:48
Sodium 137 mmol/L (135-145) 03/12/24 06:48
Potassium 3.8 mmol/L (3.5-5.1) 03/12/24 06:48
BUN 26 mg/dl (9-20) H 03/12/24 06:48
Creatinine 0.8 mg/dL (0.7-1.3) 03/12/24 06:48
Glucose 91 mg/dl (70-99) 03/12/24 06:48
Troponins
03/11/24 03/11/24 03/12/24
14:23 22:33 03:10
Troponin I 0.040 H* 0.062 H* 0.059 H*
Vital Signs and I&O:
Vital Signs
Temp Pulse Resp BP Pulse Ox
98.3 F 97 18 99/67 98
03/14/24 03:31 03/14/24 03:31 03/14/24 03:31 03/14/24 03:31 03/14/24 03:31
Vital Signs
Temp Pulse Resp BP Pulse Ox
98.3 F 97 18 99/67 98
03/14/24 03:31 03/14/24 03:31 03/14/24 03:31 03/14/24 03:31 03/14/24 03:31
Intake & Output
03/12/24 03/13/24 03/14/24 03/15/24
06:59 06:59 06:59 06:59
Intake Total 1800 / 1800 1680 / 1680
Balance 1800 / 1800 1680 / 1680
[2024-03-14 08:10] VITALS: BMI 25.4
[2024-03-14] MEDS: LIPITOR 80 MG PO (08:26)
[2024-03-14] MEDS: CARDIZEM CD 120 MG PO (08:27)
[2024-03-14] MEDS: PACERONE 400 MG PO (08:28)
[2024-03-14] MEDS: ELIQUIS 5 MG PO (08:28)
--- NOTE | 2024-03-14 11:30 | W.PN.HOSP.TC ---
Today's Communication/Plan
-
dc to home
Assessment / Plan
Assessment / Plan
Assessment:
rapid parox Afib/Aflutter
- s/p Cardizem drip, now on oral Cardizem 120mg BID BID and Amio 200 mg BID
- for JOHN/CV next week
- continue Eliquis
possible mild acute HFrEF
Hx of MR and mitraclip
- BNP 5510
- CXR: Mildly increased interstitial markings bilaterally which may represent mild interstitial edema. No focal airspace disease. No significant pleural effusions.
- s/p IV Lasix x 1
COVID+ infection
- not hypoxic
- would continue conservative measures and isolation protocol x 5 days (isolation lifts Saturday morning)
Non-ischemic myocardial injury from acute A.fib
- trend trop to peak
HLD - statin
Essential HTN
- holding BB/KLAUDIA
DVT ppx: Eliquis
Code: Full
More than 30 minutes spent in discharge including
Final examination of the patient
Summarizing hospital stay
Instructions for continuing care to all relevant caregivers
Preparation of discharge records, prescriptions, and referral forms
Total time spent (in minutes): 41
Anticipated Discharge: Today
Subjective/Interval History
-
Date of Service: March 14, 2024
no new complaints
Objective Data
-
Vital Signs:
Vital Signs
Temp Pulse Resp BP Pulse Ox
97.5 F 98 14 105/57 99
03/14/24 07:00 03/14/24 08:27 03/14/24 07:00 03/14/24 08:27 03/14/24 10:03
I&O
03/13/24 03/14/24 03/15/24
06:59 06:59 06:59
Intake Total 1800 / 1800 1680 / 1680
Balance 1800 / 1800 1680 / 1680
Physical Exam
-
General: No Apparent Distress
HEENT: Normocephalic and Atraumatic
Respiratory: Negative Wheezes
Cardiac: Irregular Rhythm
GI: Soft and Nontender
Genito-urinary: No Costovertebral Tender
Neuro: AO x 3
Hematologic / Lymphatic: No Lymphadenopathy
Psych: Calm
Data Reviewed
-
Total Time Spent with Patient (in minutes): 41
Labs: Labs Reviewed by me
[2024-03-14 11:35] VITALS: BP 124/74
--- NOTE | 2024-03-14 11:45 | W.DS.TRANS ---
DC Summary - Manager Power
-
Discharge Instructions:
Discharge Diagnosis/Procedures rapid afib/aflutter
Diet Low Cholesterol
Activity As tolerated
Bathing Restrictions None
Instructions:
Stand-Alone Forms:
Changes to Home Medications: Yes
Discharge Medications:
DC Medications w/original date entered in [employer]
atorvastatin 80 mg tablet 80 mg PO DAILY High cholesterol 10/11/19
acetaminophen 500 mg oral powder packet (Tylenol Extra Strength) 500 mg PO Q6HPRN PRN mild pain 03/11/24
apixaban 5 mg tablet (Eliquis) 5 mg PO BID Blood Clot Prevention/Tx 03/11/24
tadalafil 20 mg tablet 20 mg PO DAILYPRN PRN ed 03/11/24
amiodarone 200 mg tablet 200 mg PO BID #60 tabs 03/14/24
diltiazem HCl 120 mg capsule,extended release 24 hr 120 mg PO BID #60 caps 03/14/24
Home Medication Changes
KLAUDIA and metoprolol stopped
Pending Results: No
Total time spent discharging patient (in min): 41
--- NOTE | 2024-03-14 12:10 | CM ---
Patient has been medically cleared for discharge to home with no additional skilled services. Patient has arranged for transport home.
== END 2024-03-14 12:46 | disposition home or self-care (01) | DRG 308 ==
LOC: 2 NORTH 16:24
PROVIDERS: Nurse Practitioner Family; ADMITTING PHYSICIAN Pediatrics Neonatal-Perinatal Medicine; ATTENDING PHYSICIAN Internal Medicine; CONSULT PHYSICIAN Nuclear Medicine Nuclear Cardiology; EMERGENCY PHYSICIAN Emergency Medicine; FAMILY PHYSICIAN Family Medicine
DX: I48.3 Typical atrial flutter (principal); I50.23 Acute on chronic systolic (congestive) heart failure; U07.1 COVID-19; I5A Non-ischemic myocardial injury (non-traumatic); I42.8 Other cardiomyopathies; I48.0 Paroxysmal atrial fibrillation; I11.0 Hypertensive heart disease with heart failure; I25.5 Ischemic cardiomyopathy; I34.0 Nonrheumatic mitral (valve) insufficiency; E78.5 Hyperlipidemia, unspecified; I25.10 Atherosclerotic heart disease of native coronary artery without angina pectoris; I25.2 Old myocardial infarction; Z86.73 Personal history of transient ischemic attack (TIA), and cerebral infarction without residual deficits; Z87.891 Personal history of nicotine dependence; Z95.5 Presence of coronary angioplasty implant and graft; Z91.048 Other nonmedicinal substance allergy status; Z88.8 Allergy status to other drugs, medicaments and biological substances; Z79.899 Other long term (current) drug therapy; Z78.9 Other specified health status; Z86.69 Personal history of other diseases of the nervous system and sense organs
CPT/HCPCS: 71045; 80048; 80053; 83735; 83880; 84443; 84484; 85025; 85027; 87811; 93005; 96365; 96366; 99285

== ENCOUNTER → 2024-04-30 06:57 | Day surgery (SDC) | payer MEDICARE, BC, SELFPAY | LOC: CATH 06:57 | PROVIDERS: ATTENDING PHYSICIAN Internal Medicine Cardiovascular Disease; FAMILY PHYSICIAN Family Medicine; OTHER PHYSICIAN Internal Medicine Interventional Cardiology | DX: I08.3 Combined rheumatic disorders of mitral, aortic and tricuspid valves (principal); I10 Essential (primary) hypertension; I48.0 Paroxysmal atrial fibrillation; Z79.01 Long term (current) use of anticoagulants | CPT/HCPCS: 93312; 93320; 93325 ==

== ENCOUNTER → 2024-05-18 15:20 | Outpatient (REF) | payer MEDICARE, BC, SELFPAY | LOC: REG 15:20 | PROVIDERS: ATTENDING PHYSICIAN Thoracic Surgery (Cardiothoracic Vascular Surgery); FAMILY PHYSICIAN Family Medicine | DX: Z01.818 Encounter for other preprocedural examination (principal); I34.0 Nonrheumatic mitral (valve) insufficiency | CPT/HCPCS: 36415; 86022 ==

== ENCOUNTER 2024-05-22 06:09 | Inpatient (IN) | payer MEDICARE, BC, SELFPAY ==
[2024-05-15 08:44] VITALS: BMI 25.6
[2024-05-15 09:46] LABS: % Basophils 0.8 % (0-2); % Eosinophils 2.3 % (0-6); % Immature Granulocytes 0.3 % (0-0.5); % Lymphocytes 27.7 % (20.5-51.1); % Neutrophils 60.9 % (42.2-75.2); Absolute Basophils 0.1 10^3/uL (0-0.2); Absolute Eosinophils 0.2 10^3/uL (0-0.7); Absolute Lymphocytes 2.1 10^3/uL (1.2-3.4); Absolute Monocytes 0.6 10^3/uL (0.1-0.6); Absolute Neutrophils 4.5 10^3/uL (1.4-6.5); Hematocrit 41.3 % (39.0-52.0); Hemoglobin 13.9 g/dL (13.0-18.0); Mean Corp Hgb Conc. 33.7 g/dL (33.0-37.0); Mean Corpuscular Hgb 29.6 pg (27.0-31.0); Mean Corpuscular Volume 88.1 fL (80.0-94.0); Mean Platelet Volume 9.9 fL (7.4-10.4); Nucleated Red Blood Cells % 0 % (-); Platelet Count 198 10^3/uL (130-400); Red Blood Cell Count 4.69 10^6/uL (4.70-6.10); Red Cell Dist. Width 13.2 % (11.5-14.5); White Blood Cell Count 7.5 10^3/uL (4.8-10.8)
[2024-05-15 09:47] LABS: Urine Albumin Negative (Neg - Trace); Urine Bilirubin Negative (Negative); Urine Character Clear (Clear); Urine Color Yellow; Urine Glucose Negative (Negative); Urine Ketone Negative (Negative); Urine Leukocyte Negative (Negative); Urine Nitrite Negative (Negative); Urine Occult Blood Negative (Negative); Urine Specific Gravity 1.015 (<1.030); Urine Urobilinogen Negative (Neg - 1+)
[2024-05-15 09:53] LABS: INR 1.18; PT 14.9 Sec (11.4-14.6)
[2024-05-15 09:54] LABS: APTT 29.1 Sec (23.4-35.0)
[2024-05-15 10:09] LABS: ALT (SGPT) 25 U/L (0-50); AST (SGOT) 23 U/L (17-59); Albumin 4.6 g/dl (3.5-5.0); Alkaline Phosphatase 64 U/L (38-126); Blood Urea Nitrogen 25 mg/dl (9-20); Calcium 9.8 mg/dl (8.4-10.2); Carbon Dioxide 31 mmol/L (22-30); Chloride 99 mmol/L (98-107); Direct Bilirubin 0.1 mg/dl (0.0-0.4); Estimated Creatinine Clearance 59 ml/min; Glucose 89 mg/dl (70-99); Potassium 4.2 mmol/L (3.5-5.1); Sodium 141 mmol/L (135-145); Total Bilirubin 0.9 mg/dl (0.2-1.3); Total Protein 6.9 g/dl (6.3-8.2); eGFR > 60.00
[2024-05-15 10:38] LABS: Glycohemoglobin (HgbA1c) 5.4 % (4.0-5.6)
--- NOTE | 2024-05-15 11:09 | CM ---
Chart reviewed. Met with the patient and his in PAT. Reviewed preoperative and postoperative instructions and restrictions, along with showering guidelines. Gave patient 2 soaps. Patient is independent of ADLS, lives with his in a
split level home, 3 URSULA through the front, 2 URSULA through the garage, 0 DME. Patient is agreeable to a home visit by CT Transitional RN. Plan is for the patient to return home with CT Transitional RN.
[2024-05-22] VITALS (13 sets, daily range): BP systolic 105–140; BP diastolic 65–92; PULSE 57; BMI 24.8; BMI 25.3
[2024-05-22] MEDS: LOW STRENGTH ASPIRIN 324 MG PO (07:21)
--- NOTE | 2024-05-22 08:52 | W.PN.UPDATE ---
Update Note
Progress Note Update
Patient was admitted after his C for argatroban infusion d/t his hx of MEAGAN. There are not significant changes to office H&P. LHC revealed mild CAD. Will start argatroban in 6 hours. Plan is to obtain a CTH and CTA C/A/P over the weekend. His
surgery is scheduled for Saturday05/26/[address] hematology consult.
Vidya CASTILLO
Cardiac Surgery
--- NOTE | 2024-05-22 09:22 | ITS.CL.CATH ---
Auto Emissions Technician - Catheterization
Cardiac Catheterization
Procedure Report:
LEFT AND RIGHT HEART CATHETERIZATION
Date of Procedure: May 22, 2024
Referring: Joshua Stevens MD
PROCEDURES:
1. Left catheterization, coronary angiogram.
2. Right heart catheterization
3. Ultrasound-guided access
INDICATION: Preop for mitral valve surgery next week. Positive history for heparin-induced thrombocytopenia.
ACCESS:
1. Right radial artery, 5 Zambian sheath, under ultrasound guidance.
2. Right brachial vein, 6 [place]ian sheath
HEMODYNAMICS : (mmHg)
RA (m) : 12
RV (s/d,m) : 49/11, 16
PA (s/d, m) : 48/22, 35
PCWP (m) : 27, with V waves up to 42
PA saturation: 77.9% on room air
AO saturation: 97.2% on room air
RA saturation: 74.6% on room air
Cardiac Output : 6.43 L/min
Cardiac Index : 3.27 L/min/m-2
Systemic vascular resistance: 971 dsc^(-5)
Pulmonary vascular resistance: 1.24 villeda unit
AO (s/d) : 119/68
LV (s/d) : 120/15
LVEDP : 28
CORONARY FINDINGS
DOMINANCE: Right
LEFT MAIN: The left main artery is a large-caliber vessel which gives rise to the left anterior descending artery and the left circumflex artery. There is minimal luminal irregularities.
LEFT ANTERIOR DESCENDING: The LAD is a large-caliber vessel which gives rise to 2 major diagonal branches as it courses through the anterior interventricular groove and wraps around the apex. There is mild diffuse atherosclerotic plaque.
CIRCUMFLEX: The left circumflex artery is a medium caliber vessel which gives rise to 1 major obtuse marginal branch and a large left posterolateral branch. There is mild diffuse atherosclerotic plaque.
RIGHT CORONARY ARTERY: The right coronary artery is a medium caliber, mild to moderately tortuous vessel which gives rise to the right posterior descending artery and the right posterolateral system. There is mild diffuse atherosclerotic plaque.
SEDATION: 42 minutes of procedural sedation was utilized. An independent medical professionals was present to assist with and help manage the patient's level of consciousness and physiologic status.
RADIATION SUMMARY: Fluoro Time (min): 5.3, Dose (mGy): 344.35, DAP (Gy.cm2) : 21.6
Closure Device:
1. Vascular band was placed over the right radial artery with 10 cc of air for successful hemostasis.
2. Manual pressure was held over the right brachial vein with successful hemostasis.
CONCLUSIONS
1. No obstructive coronary artery disease.
2. Elevated right and left-sided filling pressures with normal cardiac output.
RECOMMENDATIONS
1. Plan is for inpatient admission for argatroban drip in the setting of known prior HIT with plan for mitral valve surgery next week with CT surgery.
2. Wean radial band per protocol. Would recommend initiating anticoagulation 6 hours after radial band comes off as long as there are no issues with the access site.
3. Continued management of cardiovascular risk factors.
Copy to: Joshua Stevens MD
Catalina Cao MD, [facility], [facility]
[2024-05-22] MEDS: PACERONE 200 MG PO (09:57)
[2024-05-22] MEDS: LIPITOR 80 MG PO (09:58)
[2024-05-22] MEDS: NSS 1000 IV (09:58)
--- NOTE | 2024-05-22 11:30 | CM ---
Reviewed chart. Met with and Mrs. Piña to review discharge plans. He states prior to admission he resides with his spouse in a two story home with two steps to enter the home. He states he has five steps to get to bedroom/full bathroom. He
states he has a another bathroom on the basement level. He states prior to admission he was independent with ambulation and adls. He states he has a CPAP Machine and no other DME in the home. He states he has a prescription plan. His spouse states
she will be home to assist in his care if needed. Medical work-up in progress. The discharge plan is to return home with his spouse and a home visit by the Cardiothoracic Transitional Care Nurse when medically stable.
[2024-05-22 11:59] LABS: INR 1.14; PT 14.4 Sec (11.4-14.6)
[2024-05-22 12:01] LABS: APTT 28.7 Sec (23.4-35.0)
[2024-05-22 12:06] LABS: ALT (SGPT) 24 U/L (0-50); AST (SGOT) 21 U/L (17-59); Albumin 3.9 g/dl (3.5-5.0); Alkaline Phosphatase 61 U/L (38-126); Blood Urea Nitrogen 22 mg/dl (9-20); Carbon Dioxide 28 mmol/L (22-30); Chloride 102 mmol/L (98-107); Estimated Creatinine Clearance 81 ml/min; Glucose 143 mg/dl (70-99); Sodium 140 mmol/L (135-145); Total Bilirubin 0.6 mg/dl (0.2-1.3); Total Protein 6.1 g/dl (6.3-8.2); eGFR > 60.00
--- NOTE | 2024-05-22 12:52 | CON.ONC ---
Impression
Impression
severe MR
HIT
Plan
Plan
1. HIT - Reviewed records available from [facility] in 2019 - revealing positive PF4 x3 w/ confirmatory ANDREW 'borderline positive.' Based on these findings it is unclear if the patient definitively experienced HIT at [facility] in 2019. Though, with these
findings of potenital prior HIT, would recommend use of alternative anticoagulation agent prior to and during planned procedure, to potentially prevent recurrence of HIT, as there is a risk for re-developing PF4/ heparin antibodies if re-exposed.
Will continue to follow with you.
Patient History
History of Present Illness
69y/o male seen in hematology consultation today regarding h/o HIT.
The patient was admitted to [facility] in 2019 w/ multiple medical issues. During that hospitalization, apparently, he was on a heparin, and developed thrombocytopenia. A screening platelet factor 4 assay (PF4) was obtained on 06/14/19, 06/17/19, and
again on 06/18/19, w/ all three results being positive. A confirmatory serotonin release assay was performed at a reference lab [facility], w/ 'borderline positive' results. Due to this finding, he was given a diagnosis of HIT.
He is now admitted prior to planned mitral valve surgery next week at [facility] w/ Dr. Stevens. He has been placed on an argatroban gtt, following left heart catheterization. As per cardiothoracic surgery team, there are plans for alternative
anticoagulation during mitral valve surgery - potentially bivalirudin.
CBC on 05/15 revealed normal hemoglobin 13.9g/dl of and platelet count of 198,000. Both LFTs and kidney function are normal, which would allow for safe use of these alternative anticoagulants.
Heparin associated platelet antibody screen at on 05/18/24 was negative.
Clinically, he is feeling decent. He denies chest pain today, or SOB at rest. No fever or chills. No LE edema pain.
Past-Medical/Surgical History
PMH:
HIT - [facility] - positive PF4 x3 - borderline positive ANDREW
Paroxysmal atrial fibrillation
Mixed ischemic and nonischemic CM
severe mitral regurg - s/p MitraClip for severe MR at [facility] 09/2019
CAD
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
s/p VDRF with respiratory failure with large symptomatic right pleural effusion s/p intubation 10/12/19, Bronc 10/13/19, extubated 10/15/19
h/o Seizure disorder by EEG, Keppra stopped without recurrence of seizure since 12/2021
COVID19
HTN
hyperlipidemia
SH: no tobacco, no significant ETOH
FH: non-contributory
Allergies: heparin
Patient Medication
�Medication �Instructions �Recorded �Confirmed �Last Taken �Type
atorvastatin 80 mg tablet 80 mg PO DAILY High cholesterol 10/11/19 05/22/24 05/21/24 09:00 History
acetaminophen 500 mg oral powder 500 mg PO Q6HPRN PRN mild pain 03/11/24 05/13/24 03/10/24 History
packet (Tylenol Extra Strength)
apixaban 5 mg tablet (Eliquis) 5 mg PO BID Blood Clot 03/11/24 05/22/24 05/19/24 21:00 History
Prevention/Tx
tadalafil 20 mg tablet 20 mg PO DAILYPRN PRN ed 03/11/24 05/13/24 3 Days Ago History
~03/08/24
amiodarone 200 mg tablet 200 mg PO DAILY 04/30/24 05/22/24 05/21/24 09:00 History
amoxicillin 500 mg capsule 2,000 mg PO .1HR PRIOR TO DENTAL 05/13/24 05/13/24 Unknown History
PRN dental procedures
Active Medications
Generic Name Dose Route Start Last Admin
Trade Name Freq PRN Reason Stop Dose Admin
Acetaminophen 650 mg 05/22/24 08:47
Acetaminophen 325 Mg Tablet PO 06/19/24 08:46
Q4HPRN PRN
mild pain
Amiodarone HCl 200 mg 05/22/24 09:00 05/22/24 09:57
Amiodarone 200 Mg Tablet PO 06/19/24 08:59 200 mg
DAILY TELLY Administration
Atorvastatin Calcium 80 mg 05/22/24 09:00 05/22/24 09:58
Atorvastatin (Lipitor) 80 Mg Tablet PO 06/19/24 08:59 80 mg
DAILY TELLY Administration
Sodium Chloride 1,000 mls @ 0 mls/hr 05/22/24 09:00 05/22/24 09:58
Nss IV 05/23/24 08:48 1,000 mls
PER PROTOCOL TELLY Administration
Protocol
Per Protocol
Argatroban 250 mg/ Sodium 252.5 mls @ 0 mls/hr 05/22/24 15:00
Chloride IV
PER PROTOCOL TELLY
Protocol
Per Protocol
Sodium Chloride 0 flush 05/22/24 08:00
Sodium Chloride 0.9% (Flush) Syringe IV 06/19/24 07:59
PER PROTOCOL TELLY
Review of Systems
-
A ROS was performed w/ pertinent findings as per HPI.
Physical Exam
-
General: Well Developed and No Apparent Distress
HEENT: Negative Jaundice
Cardiology: Other (systolic murmur)
Pulmonary: Clear
GI: Soft
Extremities: No C/C/E
Labs
Lab Results
WBC 7.5 10^3/uL (4.8-10.8) 05/15/24 08:57
RBC 4.69 10^6/uL (4.70-6.10) L 05/15/24 08:57
Hgb 13.9 g/dL (13.0-18.0) 05/15/24 08:57
Hct 41.3 % (39.0-52.0) 05/15/24 08:57
MCV 88.1 fL (80.0-94.0) 05/15/24 08:57
MCH 29.6 pg (27.0-31.0) 05/15/24 08:57
MCHC 33.7 g/dL (33.0-37.0) 05/15/24 08:57
RDW 13.2 % (11.5-14.5) 05/15/24 08:57
Plt Count 198 10^3/uL (130-400) 05/15/24 08:57
MPV 9.9 fL (7.4-10.4) 05/15/24 08:57
Abs Immat Gran (auto) 0.0 10^3/uL (0-0.05) 05/15/24 08:57
Absolute Neuts (auto) 4.5 10^3/uL (1.4-6.5) 05/15/24 08:57
Absolute Lymphs (auto) 2.1 10^3/uL (1.2-3.4) 05/15/24 08:57
Absolute Monos (auto) 0.6 10^3/uL (0.1-0.6) 05/15/24 08:57
Absolute Eos (auto) 0.2 10^3/uL (0-0.7) 05/15/24 08:57
Absolute Basos (auto) 0.1 10^3/uL (0-0.2) 05/15/24 08:57
Immature Gran % 0.3 % (0-0.5) 05/15/24 08:57
Neutrophils % 60.9 % (42.2-75.2) 05/15/24 08:57
Lymphocytes % 27.7 % (20.5-51.1) 05/15/24 08:57
Monocytes % 8.0 % (1.7-9.3) 05/15/24 08:57
Eosinophils % 2.3 % (0-6) 05/15/24 08:57
Basophils % 0.8 % (0-2) 05/15/24 08:57
Creatinine 0.9 mg/dL (0.7-1.3) 05/22/24 11:33
Vital Signs
Vital Signs
Temp Pulse Resp BP Pulse Ox
97.4 F 62 16 118/73 97
05/22/24 12:20 05/22/24 12:15 05/22/24 12:20 05/22/24 12:08 05/22/24 12:20
--- NOTE | 2024-05-22 14:17 | W.PN.UPDATE ---
Update Note
Progress Note Update
Primary Bible Worker: Dr. Lima
Assessment:
s/p MitraClip for severe MR at [facility] 09/2019 with severe MR by JOHN 04/30/24, planned for bioprosthetic MVR, MAZE, JOELLE clip 05/26/24
Admitted for preprocedure argatroban given history of HIT
Paroxysmal atrial fibrillation/typical atrial flutter
previous amiodarone therapy stopped due to elevated LFTs 09/2019
OAC with eliquis
Chronic HFrEF
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
CAD
large inferior and lateral wall [place] complicated by cardiogenic shock and ARDS 05/2019
s/p 3.5 mm Xience to Circ 06/03/19
nonobstructive CAD by cath 05/22/24
Previous admission for sev MR, cardiogenic shock, ECMO and CVA with transfer to [facility] 09/2019
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
s/p VDRF with respiratory failure with large symptomatic right pleural effusion s/p intubation 10/12/19, Bronch 10/13/19, extubated 10/15/19
h/o Seizure disorder by EEG, Keppra stopped without recurrence of seizure since 12/2021
JOHN 04/30/24: EF 45 to 50%, moderately dilated LA, mildly dilated RA, MitraClip in place with eccentric jet of severe MR, mean gradient 2 mmHg, mild AR
Plan:
-Patient with history of MitraClip placed in 2019 in setting of patient being significantly ill, now with severe eccentric MR by JOHN 04/30/2024
-Underwent cardiac catheterization 05/22/2024 with nonobstructive CAD
-Admitted post cath for argatroban, as unable to use heparin due to history of HIT
-Plan for bioprosthetic MVR, maze, JOELLE clip on 05/26/2024
-in SR. continue amiodarone
-d/w CT surgery, nursing
[2024-05-22] MEDS: ARGATROBAN 252.5 MG IV (16:11)
[2024-05-22 19:30] LABS: APTT 51.2 Sec (23.4-35.0)
--- NOTE | 2024-05-22 19:58 | PTCARENOTE ---
Pt received post cardiac cath done via right radial artery and right brachial vein. Radial band removed without problem, no sign of bleeding or hematoma at either access site. Pt up independently walking in halls with steady gait. Pt denies any
discomfort. Pt does have baseline difficulty finding words and reading since his CVA. Pt started on argatroban infusion, will follow protocol with PTT's.
--- NOTE | 2024-05-22 20:00 | PTCARENOTE ---
pt pleasant and cooperative. argatroban drip infusing as ordered. ptt=51.2. no change needed. will repeat ptt in 4 hours.
--- NOTE | 2024-05-22 23:40 | PTCARENOTE ---
ptt= 52.9. no change needed. 2 therapeutic results. will repeat ptt in 12 hours as per protocol. cpap on hs. pt resting comfortably.
[2024-05-22 23:54] LABS: APTT 52.9 Sec (23.4-35.0)
[2024-05-23 04:56] VITALS: BP 133/76
[2024-05-23 05:09] VITALS: BMI 24.9
--- NOTE | 2024-05-23 05:17 | PTCARENOTE ---
pt states he slept well. no acute distress.denies pain or discomfort.
[2024-05-23 05:31] LABS: Hemoglobin 13.9 g/dL (13.0-18.0); Mean Corp Hgb Conc. 34.8 g/dL (33.0-37.0); Mean Corpuscular Hgb 30.8 pg (27.0-31.0); Mean Corpuscular Volume 88.7 fL (80.0-94.0); Mean Platelet Volume 9.7 fL (7.4-10.4); Platelet Count 183 10^3/uL (130-400); Red Blood Cell Count 4.51 10^6/uL (4.70-6.10); Red Cell Dist. Width 13.2 % (11.5-14.5); White Blood Cell Count 9.6 10^3/uL (4.8-10.8)
[2024-05-23 05:55] LABS: Blood Urea Nitrogen 19 mg/dl (9-20); Calcium 9.5 mg/dl (8.4-10.2); Carbon Dioxide 27 mmol/L (22-30); Chloride 103 mmol/L (98-107); Estimated Creatinine Clearance 73 ml/min; Glucose 96 mg/dl (70-99); Potassium 4.1 mmol/L (3.5-5.1); Sodium 141 mmol/L (135-145); eGFR > 60.00
[2024-05-23 08:01] VITALS: BP 124/75
[2024-05-23] MEDS: PACERONE 200 MG PO (08:01)
[2024-05-23] MEDS: LIPITOR 80 MG PO (08:02)
--- NOTE | 2024-05-23 09:30 | PTCARENOTE ---
Assumed care of pt at 0645 from shopfitter RN. Pt AAOx3. Slow speech at times and difficulty finding words. Pt has hx of CVA and is at baseline. NSR on grinder set up operator. VSS. Argatroban gtt infusing at 2mcg/kg/min. Next PTT at 1100. Assessment
documented. at bedside.
--- NOTE | 2024-05-23 10:22 | W.PN.CARDCBS ---
Today's Communication / Plan
-
Continue argatroban. Hemoglobin and platelets are stable.
Awaiting mitral valve surgery on Saturday.
Remains in sinus. Continue amiodarone.
Impression / Plan
-
Primary Jig Fitter: Dr. Lima
Assessment:
s/p MitraClip for severe MR at [facility] 09/2019 with severe MR by JOHN 04/30/24, planned for bioprosthetic MVR, MAZE, JOELLE clip 05/26/24
Admitted for preprocedure argatroban given history of HIT
Paroxysmal atrial fibrillation/typical atrial flutter
previous amiodarone therapy stopped due to elevated LFTs 09/2019
OAC with eliquisChronic HFrEF
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
CAD
large inferior and lateral wall [place] complicated by cardiogenic shock and ARDS 05/2019
s/p 3.5 mm Xience to Circ 06/03/19
nonobstructive CAD by cath 05/22/24Previous admission for sev MR, cardiogenic shock, ECMO and CVA with transfer to [facility] 09/2019
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
s/p VDRF with respiratory failure with large symptomatic right pleural effusion s/p intubation 10/12/19, Bronch 10/13/19, extubated 10/15/19
h/o Seizure disorder by EEG, Keppra stopped without recurrence of seizure since 12/2021
JOHN 04/30/24: EF 45 to 50%, moderately dilated LA, mildly dilated RA, MitraClip in place with eccentric jet of severe MR, mean gradient 2 mmHg, mild AR
Plan:
-Patient with history of MitraClip placed in 2019 in setting of patient being significantly ill, now with severe eccentric MR by JOHN 04/30/2024
-Underwent cardiac catheterization 05/22/2024 with nonobstructive CAD
-Admitted post cath for argatroban, as unable to use heparin due to history of HIT
-Hemoglobin 13.9 and platelet count 183.
-Plan for bioprosthetic MVR, maze, JOELLE clip on 05/26/2024
-in SR. continue amiodarone
Progress Note - Jig Fitter
Subjective
Date of Service: May 23, 2024
Overall feels well. Denies chest pain or shortness of breath.
Objective
Labs:
05/23/24 05:05
05/23/24 05:05
Labs
Hgb 13.9 g/dL (13.0-18.0) 05/23/24 05:05
Hct 40.0 % (39.0-52.0) 05/23/24 05:05
Plt Count 183 10^3/uL (130-400) 05/23/24 05:05
PT 14.4 Sec (11.4-14.6) 05/22/24 11:33
INR 1.14 05/22/24 11:33
APTT 52.9 Sec (23.4-35.0) H 05/22/24 23:28
Sodium 141 mmol/L (135-145) 05/23/24 05:05
Potassium 4.1 mmol/L (3.5-5.1) 05/23/24 05:05
BUN 19 mg/dl (9-20) 05/23/24 05:05
Creatinine 1.0 mg/dL (0.7-1.3) 05/23/24 05:05
Glucose 96 mg/dl (70-99) 05/23/24 05:05
Vital Signs and I&O:
Vital Signs
Temp Pulse Resp BP Pulse Ox
97.3 F 69 18 124/75 97
05/23/24 08:05 05/23/24 08:01 05/23/24 05:10 05/23/24 08:01 05/23/24 08:00
Vital Signs
Temp Pulse Resp BP Pulse Ox
97.3 F 69 18 124/75 97
05/23/24 08:05 05/23/24 08:01 05/23/24 05:10 05/23/24 08:01 05/23/24 08:00
Intake & Output
05/21/24 05/22/24 05/23/24 05/24/24
06:59 06:59 06:59 06:59
Intake Total 354 / 354
Balance 354 / 354
Physical Exam
Physical Exam
GEN: No distress, awake, Ox3
HEENT: supple, anicteric, mmm
LUNGS: CTA, no wheezes/rales
CV: Reg, S1/S2, 1/6 syst LSB, no gallop
ABD: soft, BS+, NT/ND
EXT: No edema
NEURO: Gross non-focal
SKIN: No rash
[2024-05-23 12:26] VITALS: BP 110/67
[2024-05-23 15:33] VITALS: BP 111/74
[2024-05-23] MEDS: ARGATROBAN 252.5 MG IV (16:28)
[2024-05-23 19:28] VITALS: BP 117/68
[2024-05-23 23:30] VITALS: BP 135/83
[2024-05-24] VITALS (7 sets, daily range): BP systolic 103–137; BP diastolic 63–89; PULSE 61; BMI 24.6
[2024-05-24 00:12] LABS: APTT 55.8 Sec (23.4-35.0)
--- NOTE | 2024-05-24 01:09 | W.PN.CT ---
Today's Communication / Plan
-
Plan:
-Cont. argatroban for HIT
-Monitor PTT/INR
-Ongoing medical optimization
-For MVR/ASD closure/MAZE/ELAA by Dr. Stevens on Saturday 05/26
Assessment / Plan
-
Assessment:
-Severe eccentric MR with mitral clip in place
-S/p MitraClip for severe MR at [facility] 09/2019
-Mild AI
-HIT positive (on argatroban)
-Paroxysmal typical atrial flutter with RVR (Amiodarone d/c'd d/t elevated LFTs, on Eliquis as of 03/06/24)
-S/p Linq monitor since 01/03/24
-Chronic systolic CHF
-LVEF 45-50% per JOHN 04/30/24
-Hx CAD S/p large inferior and lateral wall [place] complicated by cardiogenic shock and ARDS 05/2019
-S/P PCI with Xience stent to LCx, 06/03/19
-HTN
-HLD
-OSCAR (uses CPAP)
-GERD
-Hx left occipital, lateral temporal and left parietal lobe CVA at [facility] while on ECMO 09/2019
-Hx Seizure disorder by EEG, Keppra stopped without recurrence of seizure since 12/2021
-S/p VDRF with respiratory failure with large symptomatic right pleural effusion s/p intubation 10/12/19, Bronc 10/13/19, extubated 10/15/19
Discussed patient care with: Cardiology, Nursing, Pharmacy and Care Team
Subjective
-
Date of Service: May 24, 2024
No issues overnight. Denies CP/SOB
Objective Data
-
Lab Results
05/23/24 05:05
05/23/24 05:05
PT 14.4 Sec (11.4-14.6) 05/22/24 11:33
INR 1.14 05/22/24 11:33
APTT 55.8 Sec (23.4-35.0) H 05/23/24 23:41
Vital Signs
Vital Signs
Temp Pulse Resp BP Pulse Ox
98.4 F 61 20 135/83 98
05/23/24 23:30 05/23/24 23:30 05/23/24 23:30 05/23/24 23:30 05/23/24 23:30
SaO2: 98 (RA)
Physical Exam
-
General: Awake, Oriented and AOx3
Cardiovascular: Regular rate & rhythm (sinus bradycardia) and Murmur (3-4/6 systolic murmur)
Respiratory: Decreased Breath Sounds
Sternum: Stable
Incision: Clean, Dry, Intact and Dressing Intact
Extremities: Other (+trace edema)
Data Reviewed
-
Lab Results: Results Reviewed
Medications: Active Meds Reviewed
Chest X-Ray: Report Reviewed and Image Reviewed
ECG: Report Reviewed and Image Reviewed
--- NOTE | 2024-05-24 02:00 | PTCARENOTE ---
Pt. has no complaints of pain/discomfort, VSS, NSR on the monitor. Ambulates independently with steady gait. Argatroban gtt infusing per order, last PTT therapeutic at 55.8. Next due 1130. Right radial and brachial cath sites without bleeding or
hematoma, brachial and radial pulses palpable. Pt. currently sleeping.
[2024-05-24] MEDS: PACERONE 200 MG PO (08:27)
[2024-05-24] MEDS: LIPITOR 80 MG PO (08:28)
--- NOTE | 2024-05-24 09:43 | W.PN.CARDCBS ---
Today's Communication / Plan
-
Doing well on IV argatroban. Repeat CBC in AM.
Remains in sinus rhythm. Continue amiodarone.
Continue atorvastatin.
OR on Saturday.
Impression / Plan
-
Primary Band Director: Dr. Lima
Assessment:
s/p MitraClip for severe MR at [facility] 09/2019 with severe MR by JOHN 04/30/24, planned for bioprosthetic MVR, MAZE, JOELLE clip 05/26/24
Admitted for preprocedure argatroban given history of HIT
Paroxysmal atrial fibrillation/typical atrial flutter
previous amiodarone therapy stopped due to elevated LFTs 09/2019
OAC with eliquisChronic HFrEF
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
CAD
large inferior and lateral wall [place] complicated by cardiogenic shock and ARDS 05/2019
s/p 3.5 mm Xience to Circ 06/03/19
nonobstructive CAD by cath 05/22/24Previous admission for sev MR, cardiogenic shock, ECMO and CVA with transfer to [facility] 09/2019
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
s/p VDRF with respiratory failure with large symptomatic right pleural effusion s/p intubation 10/12/19, Bronch 10/13/19, extubated 10/15/19
h/o Seizure disorder by EEG, Keppra stopped without recurrence of seizure since 12/2021
JOHN 04/30/24: EF 45 to 50%, moderately dilated LA, mildly dilated RA, MitraClip in place with eccentric jet of severe MR, mean gradient 2 mmHg, mild AR
Plan:
-Patient with history of MitraClip placed in 2019 in setting of patient being significantly ill, now with severe eccentric MR by JOHN 04/30/2024
-Underwent cardiac catheterization 05/22/2024 with nonobstructive CAD
-Admitted post cath for argatroban, as unable to use heparin due to history of HIT
-Hemoglobin 13.9 and platelet count 183.
-Plan for bioprosthetic MVR, maze, JOELLE clip on 05/26/2024
-in SR. continue amiodarone
Progress Note - Band Director
Subjective
Date of Service: May 24, 2024
Feels well. No chest pains or shortness of breath. Remains in sinus rhythm.
Objective
Labs:
05/23/24 05:05
05/23/24 05:05
Labs
Hgb 13.9 g/dL (13.0-18.0) 05/23/24 05:05
Hct 40.0 % (39.0-52.0) 05/23/24 05:05
Plt Count 183 10^3/uL (130-400) 05/23/24 05:05
PT 14.4 Sec (11.4-14.6) 05/22/24 11:33
INR 1.14 05/22/24 11:33
APTT 55.8 Sec (23.4-35.0) H 05/23/24 23:41
Sodium 141 mmol/L (135-145) 05/23/24 05:05
Potassium 4.1 mmol/L (3.5-5.1) 05/23/24 05:05
BUN 19 mg/dl (9-20) 05/23/24 05:05
Creatinine 1.0 mg/dL (0.7-1.3) 05/23/24 05:05
Glucose 96 mg/dl (70-99) 05/23/24 05:05
Vital Signs and I&O:
Vital Signs
Temp Pulse Resp BP Pulse Ox
97.3 F 65 20 130/76 99
05/24/24 07:38 05/24/24 09:00 05/24/24 07:38 05/24/24 08:27 05/24/24 07:38
Vital Signs
Temp Pulse Resp BP Pulse Ox
97.3 F 65 20 130/76 99
05/24/24 07:38 05/24/24 09:00 05/24/24 07:38 05/24/24 08:27 05/24/24 07:38
Intake & Output
05/22/24 05/23/24 05/24/24 05/25/24
06:59 06:59 06:59 06:59
Intake Total 354 / 354 240 / 240
Balance 354 / 354 240 / 240
Physical Exam
Physical Exam
GEN: No distress, awake, Ox3
HEENT: supple, anicteric, mmm
LUNGS: CTA, no wheezes/rales
CV: Reg, S1/S2, 1/6 syst LSB, no gallop
ABD: soft, BS+, NT/ND
EXT: No edema
NEURO: Gross non-focal
SKIN: No rash
[2024-05-24 12:11] LABS: INR 2.12; PT 23.6 Sec (11.4-14.6)
[2024-05-24 12:12] LABS: APTT 58.1 Sec (23.4-35.0)
--- NOTE | 2024-05-24 13:13 | PTCARENOTE ---
Rec'd pt at change of shift. Pt in NSR with VSS and AAO*3. Argatroban infusing at 9.4 mL's per hour. Pt ambulating with no assistance and denies any pain or discomfort. Previous radial and brachial sites CDI. Pt sitting at bedside with
watching TV.
--- NOTE | 2024-05-24 14:42 | PTCARENOTE ---
Pt on Argatroban infusing infusing at 9.4 mL's per hour. Ptt from 11:30 resulted at 58.1 (within target range). No change in rate. Verified with Singh Laurent from pharmacy. Next ptt ordered for 23:30.
[2024-05-24] MEDS: ARGATROBAN 252.5 MG IV (15:47)
[2024-05-25] VITALS (9 sets, daily range): BP systolic 101–130; BP diastolic 62–84; PULSE 60; BMI 24.7
[2024-05-25 00:01] LABS: APTT 53.4 Sec (23.4-35.0)
--- NOTE | 2024-05-25 01:20 | PTCARENOTE ---
PTT at 2342 resulted 53.4; therapeutic. Argatroban gtt remains at 2 mcg/kg/min (9.4 ml/hr). Pt. has no complaints of pain, NSR on the monitor, ambulates around unit independently. Currently sleeping.
--- NOTE | 2024-05-25 05:02 | W.PN.CT ---
Today's Communication / Plan
-
Plan:
-Cont. argatroban for HIT
-Monitor PTT/INR
-Ongoing medical optimization
-For MVR/ASD closure/MAZE/ELAA by Dr. Stevens tomorrow 05/26
Assessment / Plan
-
Assessment:
-Severe eccentric MR with mitral clip in place
-S/p MitraClip for severe MR at [facility] 09/2019
-Mild AI
-HIT positive (on argatroban)
-Paroxysmal typical atrial flutter with RVR (Amiodarone d/c'd d/t elevated LFTs, on Eliquis as of 03/06/24)
-S/p Linq monitor since 01/03/24
-Chronic systolic CHF
-LVEF 45-50% per JOHN 04/30/24
-Hx CAD S/p large inferior and lateral wall [place] complicated by cardiogenic shock and ARDS 05/2019
-S/P PCI with Xience stent to LCx, 06/03/19
-HTN
-HLD
-OSCAR (uses CPAP)
-GERD
-Hx left occipital, lateral temporal and left parietal lobe CVA at [facility] while on ECMO 09/2019
-Hx Seizure disorder by EEG, Keppra stopped without recurrence of seizure since 12/2021
-S/p VDRF with respiratory failure with large symptomatic right pleural effusion s/p intubation 10/12/19, Bronc 10/13/19, extubated 10/15/19
Discussed patient care with: Cardiology, Nursing, Respiratory Therapy, Pharmacy and Care Team
Subjective
-
Date of Service: May 25, 2024
No issues overnight, denies CP/SOB
Objective Data
-
PT 23.6 Sec (11.4-14.6) H 05/24/24 11:47
INR 2.12 05/24/24 11:47
APTT 53.4 Sec (23.4-35.0) H 05/24/24 23:42
Vital Signs
Vital Signs
Temp Pulse Resp BP Pulse Ox
97.9 F 64 18 124/77 98
05/25/24 04:54 05/24/24 23:48 05/25/24 04:54 05/24/24 23:48 05/25/24 04:54
CT Intake/Output/Weight
05/24/24 05/24/24 05/25/24
06:59 18:59 06:59
Intake Total 240 / 240 240 / 240
Balance 240 / 240 240 / 240
SaO2: 98 (RA)
Physical Exam
-
General: Awake, Oriented and AOx3
Cardiovascular: Regular rate & rhythm, No Murmurs, No Rub and No Gallop
Respiratory: Decreased Breath Sounds (at bases, otherwise clear)
Sternum: Stable
Incision: Clean, Dry, Intact and Dressing Intact
Extremities: No Edema
Data Reviewed
-
Lab Results: Results Reviewed
Medications: Active Meds Reviewed
Chest X-Ray: Report Reviewed and Image Reviewed
ECG: Report Reviewed and Image Reviewed
[2024-05-25 05:21] LABS: Hemoglobin 13.8 g/dL (13.0-18.0); Mean Corp Hgb Conc. 34.5 g/dL (33.0-37.0); Mean Corpuscular Hgb 30.1 pg (27.0-31.0); Mean Corpuscular Volume 87.1 fL (80.0-94.0); Mean Platelet Volume 9.4 fL (7.4-10.4); Platelet Count 195 10^3/uL (130-400); Red Blood Cell Count 4.59 10^6/uL (4.70-6.10); Red Cell Dist. Width 13.2 % (11.5-14.5); White Blood Cell Count 8.8 10^3/uL (4.8-10.8)
[2024-05-25 05:33] LABS: INR 1.83
[2024-05-25 05:44] LABS: Blood Urea Nitrogen 22 mg/dl (9-20); Calcium 9.7 mg/dl (8.4-10.2); Carbon Dioxide 29 mmol/L (22-30); Chloride 100 mmol/L (98-107); Estimated Creatinine Clearance 66 ml/min; Glucose 96 mg/dl (70-99); Magnesium 2.2 mg/dl (1.6-2.3); Potassium 4.1 mmol/L (3.5-5.1); Sodium 140 mmol/L (135-145); eGFR > 60.00
[2024-05-25] MEDS: PACERONE 200 MG PO (08:16)
[2024-05-25] MEDS: LIPITOR 80 MG PO (08:16)
[2024-05-25] MEDS: FLUSH (NSS) 1 FLUSH IV (08:17)
--- NOTE | 2024-05-25 09:13 | PTCARENOTE ---
Rec'd pt at change of shift on TELE monitor in NSR with VSS and AAO*3. Pt denied any pain or discomfort and ambulating around unit fully independent. Pt receptive to pre-op teaching and plan of care for OR preparation. Pt aware of NPO status at
midnight and verbalized understand of care plan. Pt sitting at bedside with call esqueda in reach.
--- NOTE | 2024-05-25 09:27 | PTCARENOTE ---
Pt with argatroban infusing at 9.4mLs per hour per order. Ptt assessment due at 1130.
--- NOTE | 2024-05-25 11:31 | W.PN.CARDCBS ---
Addendum entered and electronically signed by Michelle Morris MD 05/25/24 12:36:
I saw and examined the patient.
The Chicken Fancier's note was reviewed and I agree with the note.
Comment: Walking in the hallways with no complaint now currently in his room. No chest pain overnight. No bleeding related issues.
He continues on argatroban. Renewed.
Plan for mitral valve replacement tomorrow. Discussed. All questions answered.
Exam stable with no obvious volume overload.
Telemetry reviewed and without abnormality. Rhythm stable.
Continue current medication.
We will continue follow-up.
Original Note:
Today's Communication / Plan
-
Stable from cardiac standpoint
Impression / Plan
-
PCP: Dr. Zachary Craig
Primary Cooler Servicer: Dr. Lima
Assessment:
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
No evidence of obstructive CAD by cath 05/22/24
s/p MitraClip for severe MR at [facility] 09/2019 with severe MR by JOHN 04/30/24, planned for bioprosthetic MVR, MAZE, JOELLE clip 05/26/24
Paroxysmal atrial fibrillation/typical atrial flutter
previous amiodarone therapy stopped due to elevated LFTs 09/2019
OAC with Eliquis
Chronic HFrEF
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
CAD
large inferior and lateral wall [place] complicated by cardiogenic shock and ARDS 05/2019
s/p 3.5 mm Xience to Circ 06/03/19
nonobstructive CAD by cath 05/22/24
Previous admission for sev MR, cardiogenic shock, ECMO and CVA with transfer to [facility] 09/2019
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
h/o VDRF with respiratory failure with large symptomatic right pleural effusion s/p intubation 10/12/19, Bronch 10/13/19, extubated 10/15/19
h/o Seizure disorder by EEG, Víctorra stopped without recurrence of seizure since 12/2021
JOHN 04/30/24: EF 45 to 50%, moderately dilated LA, mildly dilated RA, MitraClip in place with eccentric jet of severe MR, mean gradient 2 mmHg, mild AR
Plan:
-Patient had R/LHC 05/22/24 that showed no obstructive CAD and was admitted thereafter for argatroban bridge prior to planned tissue MVR 05/26/24 due to h/o HIT. Patient with history of MitraClip placed in 2019 in setting of patient being
significantly ill, now with severe eccentric MR by JOHN 04/30/2024. Patient also with h/o CVA and residual expressive aphasia from 2019.
-CBC on 05/25/24 is stable. Argatroban continued.
-No evidence of obstructive CAD on cath 05/22/24.
-Outpatient dose of amiodarone 200 mg daily has been continued and patient is in SR. Check ECG to follow QTc.
-Plan for bioprosthetic MVR, maze, JOELLE clip on 05/26/2024
Progress Note - Cooler Servicer
Subjective
Date of Service: May 25, 2024
He feels well, no chest pain
Objective
Labs:
05/25/24 05:04
05/25/24 05:04
Labs
Hgb 13.8 g/dL (13.0-18.0) 05/25/24 05:04
Hct 40.0 % (39.0-52.0) 05/25/24 05:04
Plt Count 195 10^3/uL (130-400) 05/25/24 05:04
PT 21.0 Sec (11.4-14.6) H 05/25/24 05:04
INR 1.83 05/25/24 05:04
APTT 53.4 Sec (23.4-35.0) H 05/24/24 23:42
Sodium 140 mmol/L (135-145) 05/25/24 05:04
Potassium 4.1 mmol/L (3.5-5.1) 05/25/24 05:04
BUN 22 mg/dl (9-20) H 05/25/24 05:04
Creatinine 1.1 mg/dL (0.7-1.3) 05/25/24 05:04
Glucose 96 mg/dl (70-99) 05/25/24 05:04
Vital Signs and I&O:
Vital Signs
Temp Pulse Resp BP Pulse Ox
98.1 F 74 16 130/84 96
05/25/24 07:33 05/25/24 08:16 05/25/24 07:33 05/25/24 08:16 05/25/24 08:55
Vital Signs
Temp Pulse Resp BP Pulse Ox
98.1 F 74 16 130/84 96
05/25/24 07:33 05/25/24 08:16 05/25/24 07:33 05/25/24 08:16 05/25/24 08:55
Intake & Output
05/23/24 05/24/24 05/25/24 05/26/24
06:59 06:59 06:59 06:59
Intake Total 354 / 354 240 / 240 832.8 / 832.8 240 / 240
Balance 354 / 354 240 / 240 832.8 / 832.8 240 / 240
Physical Exam
Physical Exam
GEN: AAOx3
HEENT: mmm
LUNGS: No audible wheeze
CV: SR on tele
ABD: ND
EXT: No edema
NEURO: Expressive aphasia, no focal or lateralizing weakness
SKIN: No rash
--- NOTE | 2024-05-25 11:53 | CM ---
Reviewed chart. Met with Mr. Piña to review discharge plans. He states he is feeling well and the plan is for surgery tomorrow. Prior to admission he resides with his spouse in a spilt level home with two steps to enter. He has five steps to get
to bedroom/full bathroom. He has another bathroom is in the basement. Prior to admission he was independent with ambulation and adls. He has a CPAP Machine at home and no other DME in the home. He has a prescription plan. His spouse will be home to
assist in his care if needed. Medical work-up in progress. The discharge plan is to return home with his spouse and a home visit by the Cardiothoracic Transitional Care Nurse when medically stable.
[2024-05-25 11:56] LABS: APTT 57.2 Sec (23.4-35.0)
--- NOTE | 2024-05-25 13:09 | PTCARENOTE ---
Ptt from 1130 resulted at 57.2, with in target range of Argatroban in accordance with order. No change to initial infusion rate of 2mcgs/kg/min or 4.2 mL per hour. Kimmy Issa from pharmacy was able to verify and agreed to keep current infusion
rate. New ptt ordered for 12 hours from last ptt at 23:30 as per protocol. Plan of care updated with patient.
[2024-05-25] MEDS: ARGATROBAN 252.5 MG IV (15:32)
[2024-05-25 23:42] LABS: APTT 54.5 Sec (23.4-35.0)
[2024-05-26] VITALS (17 sets, daily range): BP systolic 88–141; BP diastolic 61–84; PULSE 64; BMI 24.6
--- NOTE | 2024-05-26 | PTCARENOTE ---
Received patient at change of shift. Patient OOB in room with and ambulating in the david off and on. Alert and oriented. Right radial and brachial sites open to air. BP 116/66, NSR 60s-70s, 98% on room air. Discussed surgical prep plan for the
evening and morning. Patient verbalized understanding. Call esqueda within reach.
--- NOTE | 2024-05-26 00:49 | PTCARENOTE ---
Addendum entered by Marina Scott RN 05/26/24 00:52:
Chest x-ray not obtained this admission. Prachi Vidal aware, no new orders.
Original Note:
Surgical prep completed at 2119. Discussed prep for the morning. Patient verbalized understanding. Call esqueda within reach.
--- NOTE | 2024-05-26 02:49 | PTCARENOTE ---
@0026- PTT 54.3 evaluated with pharmacist Kole-Jose Roche. PTT therapeutic- no changes necessary. Argatroban continues @ 9.4mls/hr
[2024-05-26] MEDS: LOPRESSOR 12.5 MG PO (06:06)
[2024-05-26] MEDS: BACTROBAN 2% OINTMENT 1 APPLIC NASAL ×2 (06:08→21:33)
[2024-05-26] MEDS: MAGNESIUM OXIDE 500 MG PO (06:08)
[2024-05-26] MEDS: PROTONIX 40 MG PO (06:08)
--- NOTE | 2024-05-26 06:16 | PTCARENOTE ---
Argatroban drip stopped at 0600.
--- NOTE | 2024-05-26 06:20 | PTCARENOTE ---
CVOR prep completed. Patient clipped and bathed x2. CHG wipes completed. CVICU bed in place. Preop medications completed per MAR. Discussed with family member surgical plan. Patient's belongings transferred to CVICU.
[2024-05-26 07:19] LABS: ACT+ - POC 126 Seconds (82-134)
[2024-05-26 07:58] LABS: Urine Albumin Negative (Neg - Trace); Urine Bilirubin Negative (Negative); Urine Character Clear (Clear); Urine Color Straw; Urine Glucose Negative (Negative); Urine Ketone Negative (Negative); Urine Leukocyte Negative (Negative); Urine Nitrite Negative (Negative); Urine Occult Blood Negative (Negative); Urine Specific Gravity 1.015 (<1.030); Urine Urobilinogen Negative (Neg - 1+)
[2024-05-26 08:28] LABS: ACT+ - POC 383 Seconds (82-134)
[2024-05-26 08:37] LABS: B.E. - POC 2.7 mmol/L; Glucose - POC 95 mg/dl (70-99); HCO3 - POC 29 mmol/L (21-29); Hematocrit - POC 39 % PCV (42-52); Hemodilution- POC Yes; Hemoglobin Calculated - POC 13.4; Ionized Calcium - POC 1.23 mmol/L (1.12-1.27); PCO2 - POC 48 mmHg (35-45); PO2 - POC 567 mmHg (80-100); POC Comment PRE; Potassium - POC 3.7 mmol/L (3.6-5.0); Sodium - POC 140 mmol/L (135-145); pH - POC 7.38 (7.35-7.45)
[2024-05-26 08:42] LABS: ACT+ - POC 364 Seconds (82-134)
[2024-05-26 08:53] LABS: ACT+ - POC 384 Seconds (82-134)
[2024-05-26 08:58] LABS: B.E. - POC 3.5 mmol/L; Glucose - POC 123 mg/dl (70-99); HCO3 - POC 26 mmol/L (21-29); Hematocrit - POC 34 % PCV (42-52); Hemodilution- POC Yes; Hemoglobin Calculated - POC 11.6; Ionized Calcium - POC 1.06 mmol/L (1.12-1.27); PCO2 - POC 32 mmHg (35-45); PO2 - POC 493 mmHg (80-100); POC Comment CPB; Sodium - POC 139 mmol/L (135-145); pH - POC 7.52 (7.35-7.45)
[2024-05-26 09:04] LABS: ACT+ - POC 397 Seconds (82-134)
--- NOTE | 2024-05-26 09:05 | CM ---
pt in OR today, cm to follow
[2024-05-26 09:24] LABS: ACT+ - POC 391 Seconds (82-134)
[2024-05-26 09:25] LABS: B.E. - POC 7.6 mmol/L; Glucose - POC 111 mg/dl (70-99); HCO3 - POC 30 mmol/L (21-29); Hematocrit - POC 32 % PCV (42-52); Hemodilution- POC Yes; Hemoglobin Calculated - POC 10.8; Ionized Calcium - POC 1.02 mmol/L (1.12-1.27); PCO2 - POC 33 mmHg (35-45); PO2 - POC 401 mmHg (80-100); POC Comment CPB; Potassium - POC 3.9 mmol/L (3.6-5.0); Sodium - POC 138 mmol/L (135-145); pH - POC 7.57 (7.35-7.45)
[2024-05-26 09:34] LABS: ACT+ - POC 387 Seconds (82-134)
[2024-05-26] MEDS: ANCEF 10 IV ×2 (09:41)
[2024-05-26 10:02] LABS: B.E. - POC 6.7 mmol/L; Glucose - POC 121 mg/dl (70-99); HCO3 - POC 31 mmol/L (21-29); Hematocrit - POC 37 % PCV (42-52); Hemodilution- POC Yes; Hemoglobin Calculated - POC 12.5; O2 Saturation %Calculated-POC 99.9 5 (92-96); PCO2 - POC 42 mmHg (35-45); PO2 - POC 236 mmHg (80-100); POC Comment CPB; Potassium - POC 4.1 mmol/L (3.6-5.0); Sodium - POC 143 mmol/L (135-145); pH - POC 7.48 (7.35-7.45)
[2024-05-26 10:06] LABS: ACT+ - POC 337 Seconds (82-134)
[2024-05-26 10:11] LABS: B.E. - POC 3.5 mmol/L; Glucose - POC 130 mg/dl (70-99); HCO3 - POC 28 mmol/L (21-29); Hematocrit - POC 33 % PCV (42-52); Hemodilution- POC Yes; Hemoglobin Calculated - POC 11.1; PCO2 - POC 42 mmHg (35-45); PO2 - POC 354 mmHg (80-100); POC Comment POST; Potassium - POC 3.9 mmol/L (3.6-5.0); Sodium - POC 140 mmol/L (135-145); pH - POC 7.43 (7.35-7.45)
[2024-05-26 10:23] LABS: ACT+ - POC 269 Seconds (82-134)
[2024-05-26 10:30] LABS: ACT+ - POC 225 Seconds (82-134)
--- NOTE | 2024-05-26 10:38 | W.PN.CT.SURG ---
CT Surgery Operative Note
-
CARDIAC SURGERY OPERATIVE REPORT
Preoperative Diagnosis: Severe mitral valve insufficiency, dilated LV with mixed cardiomyopathy and atrial fibrillation with RVR
Postoperative Diagnosis: Same
Procedure(s) Performed:
1. Standard sternotomy with aortic and bicaval cannulation and use of bivalirudin for on-pump anticoagulation
2. Open surgical left atrial maze [combination of RF ablation and cryo]
3. Left atrial appendage exclusion
4. ASD closure, done primarily
5. Chordal sparing mitral valve replacement [31 mm bioprosthesis]
6. Placement of temporary atrial ventricular pacing wires
7. Transesophageal echocardiography
Date of Surgery: 05/26/2024
Comorbidities:
1. Severe mitral valve insufficiency, type I with a MitraClip in place and severe annular dilatation
2. History of stroke with residual symptoms, word finding difficulties and encephalomalacia on recent head CT
3. History of myocardial infarction with residual regional wall motion abnormality
4. History of DVT and atrial fibrillation with RVR on chronic anticoagulation
5. Obstructive sleep apnea on CPAP
6. History of ECMO with iatrogenic injury to right common carotid
7. History of PCI and cardiac stenting in 2019
8. History of tracheostomy
9. Left heart catheter this admission/right heart cath this admission
10. Chronic systolic and diastolic heart failure with dilated left ventricle
Attending Surgeon: Joshua Stevens MD, MS
Assistants: Dwaine Richardson PA-C (present and necessary to assistant hairstylist, retraction, suction, exposure, suture management, and wound closure under my direction)
Anesthesiology: Franklin Gongora MD and Ton Lancaster CRNA
Scrub and Circulating RNs: Cody Zaidi, GAY, Helena Allred RN
Social Staff Worker: Jessenia Rincon CCP
Anesthesia: GETA
EBL: per perfusion records
Products: None
CPB Time: 70 minutes
Aortic Cross Clamp Time: 54 minutes
Indication(s) for Procedures: This is a 61-year-old male with extensive past medical history including prolonged. On Veno arterial extracorporeal circulation, massive NE requiring emergency PCI and stenting, unfortunate stroke following his
prolonged hospital stay and requiring tracheostomy. He also required MitraClip placement for severe mitral valve sufficiency at that time as he was quite sick. His mitral valve insufficiency has slowly began to worsen and as his ventricle is
dilated as well as his annulus. He now has a mitral valve with urgency, elevated filling pressures and elevated right-sided heart pressures. He also has new onset atrial fibrillation with RVR and is on chronic anticoagulation. His only residual
deficits really from his stroke include word finding difficulties, he has made a remarkable recovery. It is exclusion as part of his procedures and ASD closure. He accepted those risks and so we proceeded.
Mitral Valve Description: Scarred down at the midportion between P2 and A2 more towards the posterior medial side, dilated annulus, with mildly thickened anterior and posterior leaflets.
Findings: His left ventricular ejection fraction preoperatively was 45% with significant regional wall motion abnormalities toward the anterior lateral wall. Following surgery his EF remained the same at 45% with the same motion. His mitral valve
was replaced and a chordal sparing fashion we relocated the anterior leaflet along with some of the mitral apparatus to the posterior annulus preserving the havasupai chordal structure. The midportion where the mitral clip was scarred to the leaflets
and was sharply resected and sent off for pathological specimen. Left atrial maze was performed using a combination of both RF encompass ablation and cryo ablation as well as ligation of his left atrial appendage after verifying that it was free
from any thrombus or debris preoperatively. At the conclusion of the case, his left atrial branch was totally occluded with no residual stump or flow. The mitral valve was replaced with a total of 13 pledgeted 2-0 Ethibond sutures in an inverted
fashion from LV through annulus to sewing cuff and secured with core knots. A dental mirror was used to verify that the aortic valve leaflets were not injured and that the struts of the mitral valve were not occluding the LVOT. The iatrogenic
atrial septal defect was verified and located more towards the IVC side of the septum and was closed primarily via the left atrium. After coming off cardiopulmonary bypass, there is no residual perivalvular leak of the bioprosthetic valve, normal
excursion of the leaflets, the same trace to mild aortic valve insufficiency that was central, and no residual shunt on the ASD. He did not require any blood products, there was no reversal agent for biVal and so we waited for the ACT to start
drifting before closing the chest. The chest was closed with a combination of wires and plates. His index was well over 2, did not require any blood products, and he only had low-dose dobutamine for rate as his havasupai heart rhythm was in the 30s
sinus. Given his massive stroke history and DVT, hematology was consulted preoperatively and due to his history of HIT, we all felt it was not safe to use heparin. Therefore he was admitted preoperatively after his cath for argatroban drip. For
the surgery we use bivalirudin.
Ablation Lines:
1. Box lesion to posterior LA wall
2. JOELLE lesion + JOELLE Exclusion + Division of Ligament of Giorgio
3. Coronary sinus lesion
4. Posterior mitral annular line toward P2/P3
Specimen(s): Mitral Clip with some of the anterior leaflet
Prosthesis:
1. 45 mm left atrial appendage clip, serial #[id number]
2. Mitral valve bioprosthesis, Mccoy Mitris Resilia valve, serial #[id number]
3. 2 gold curved box plates and a total of 8 x 14mm screws
Description of Procedure: The patient was taken to the operating room. Their identity and procedure to be performed were verified and they were positioned supine on the operating table. Induction via general anesthesia with endotracheal intubation
was performed and central venous access and arterial monitoring were inserted. A preoperative transesophageal echocardiogram was performed to assess cardiac function and valvular function. The patient was then prepped and draped from chin to feet in
a sterile fashion. A preoperative time-out was performed with all members of the team present. A midline chest incision was performed along with median sternotomy. The innominate vein was isolated. Full anticoagulation was given with a bolus dose of
bivalirudin followed by a drip coordinated between anesthesia and perfusion. We created a pericardial well. The aortic cannulation site was chosen where it was soft, pliable, and free of calcium. Cannulation was performed with an arterial cannula in
the ascending aorta, angled metal tip cannular in the superior vena cava and straight bendable cannula in the inferior vena cava. The arterial cannula line had an appropriate bounce and correlating pressures. Next, a root vent/antegrade cannula was
inserted into the ascending aorta. The ACT was confirmed to be over 400 and retrograde autologous priming was performed before commencing cardiopulmonary bypass. The pulmonary artery was away from the aorta to facilitate a clamp site.
Sondergaard�s groove was developed after creating the oblique sinus. Additional dissection was performed between the superior vena cava and the right pulmonary artery in order to facilitate placement of the RF ablation clamp. While on
cardiopulmonary bypass, the encompass clamp was used to perform 3 successful pairs of ablations isolating the posterior wall. The aortic cross-clamp was placed after decreasing the flow on the bypass and mean arterial pressure. A total of 1.0L
initial dose of antegrade Del-Nido cardioplegia solution was given and planned for re-dosing every 75 minutes as necessary. There was rapid electro-mechanical arrest of the heart at 300 cc of cardioplegia. The left ventricle was observed for
distention on echocardiogram and manual palpation. Cold slush was placed into a lap on the RV and we systemically cooled to 34 degrees centigrade. Once the heart was fully arrested, I was mobilized medially, the left atrial appendage was incised
and additional burn lines were performed from the left atrial appendage down to the left superior pulmonary vein. A 45 mm clip was then placed flush to the base of the left atrial appendage.
Carbon dioxide was used to flood the field. The mitral valve was access via the left atrium followed by valve analysis. The mitral valve was replaced as described above. The iatrogenic ASD was identified and closed primarily a running 4-0 Prolene
and tied down. The left ventricular vent was repositioned across the mitral valve into the left ventricular and the left atrium was closed with a 3-0 prolene and after de-airing filling of the left atrium, the left ventricular vent was removed.
De-airing maneuvers were performed and temporary bipolar ventricular pacing wires were placed on the base of the right ventricle. The patient was placed in a Trendelenburg position and flows on bypass were lowered. The aortic cross clamp was removed
and flows were slowly brought back up. The left atrial suture line was hemostatic. Transesophageal echocardiography revealed no evidence of paravalvular leak with the same left ventricular function as preop. Once de-airing was satisfactory the root
vent was removed. After verifying acceptable parameters, we initiated weaning from cardiopulmonary bypass. Once we were off cardiopulmonary bypass, the venous cannulas was clamped and removed sequentially. As there is no reversal agent for
bivalirudin, we checked serial ACT's. Once he started drip, pump suckers were turned off and the systolic blood pressure was lowered for aortic decannulation. The aortic cannula was removed and purse strings were tied down. All cannulation sites
were oversewn with a 4-0 prolene. The left atrial suture line was inspected and hemostasis was confirmed. Mediastinal hemostasis was obtained. Two #24 Armando drains were placed within the pericardium with additional 19 [place] Armando drain to the left
hemithorax. The sternum was approximated with 4 #7 single and 2 #8 double stainless steel wires. 2 additional box plates were placed 1 at the manubrial sternal junction and 1 lower down towards the body of the sternum and secured into place with a
total of 8 x 14 mm screws. Fascia was approximated with #1 vicryl suture. The subcutaneous, dermis and epidermis were closed in layers in a running fashion. The skin wound was cleansed and dressed.
All instrument, sponge, and needle counts were confirmed to be correct x 2 at the end of the operation. The patient was transferred to the cardiac intensive care unit in critical but stable condition.
I, Dr. Joshua Stevens, was present, scrubbed for, and performed all critical elements of this procedure.
Joshua Stevens MD, MS
Cardiothoracic Surgeon
[facility]
This dictation was created using the [employer] dictation system. Please excuse any grammatical, typographical, or 'sound alike' errors
[2024-05-26 10:43] LABS: ACT+ - POC 219 Seconds (82-134)
[2024-05-26 10:58] LABS: Glucose - Point of Care 149 mg/dl (70-99)
[2024-05-26 11:07] LABS: Hematocrit 36.9 % (39.0-52.0); Hemoglobin 12.9 g/dL (13.0-18.0); Platelet Count 161 10^3/uL (130-400)
[2024-05-26 11:08] LABS: B.E. 0.1 mmol/L; O2 Saturation % 99.3 % (94-98); PCO2 46 mmHg (35-48); PO2 150 mmHg (83-108); Potassium 3.7 mMOL/L (3.5-5.1); Sodium 134 mMOL/L (136-145); pH 7.36 (7.35-7.45)
[2024-05-26 11:10] LABS: ACT+ - POC 184 Seconds (82-134)
[2024-05-26 11:11] LABS: ACT-LR - POC 211 Seconds (116-155)
[2024-05-26 11:12] LABS: Mixed Venous O2 Saturation 89.7 %
[2024-05-26 11:22] LABS: Blood Urea Nitrogen 21 mg/dl (9-20); Estimated Creatinine Clearance 73 ml/min; Glucose 145 mg/dl (70-99); Magnesium 2.6 mg/dl (1.6-2.3)
[2024-05-26 11:27] LABS: INR 2.33; PT 25.4 Sec (11.4-14.6)
[2024-05-26 11:29] LABS: APTT 89.8 Sec (23.4-35.0)
[2024-05-26] MEDS: NSS 500 IV (11:30)
[2024-05-26] MEDS: KCL 50 IV ×2 (11:30→12:24)
[2024-05-26] MEDS: LIPITOR PO (11:35)
[2024-05-26] MEDS: PACERONE PO ×2 (11:36→17:28)
--- NOTE | 2024-05-26 11:39 | PTCARENOTE ---
Pt arrived from CVOR to CVICU at 1050. Pt is intubated and sedated. Currently SR with HR 78. BP 103/51 MAP 68. PA 25/15, CVP 5, CO 5.59, CI 2.87, SVR 944. Epicardial AV wires in place. Temp 96.0, Ruth hugger in place. Pt intubated with #8 ET tube at
24cm on right lip. Vent set to SIMV FiO2 40%, PEEP 5, Pressure support 5, TV 550, rate 12. Mediastinal CT x2 and left pleural CT in place to -20 suction, no sign of air leak or crepitus, drainage red in color. Bowel sounds hypoactive. Paul catheter
in place draining yellow urine. Midsternal incision approximated and AUTOMOTIVE POWER ELECTRONICS ENGINEER. Left IJ cordis in place with Ethel-Iggy catheter at 48cm. Left radial ivy intact. Pt currently on Levo 2mcg/min, dobutamine 3mcg/kg/min, Precedex 0.5mcg/kg/hr, and insulin
3.5units/hr. Post-op EKG and x-ray completed. Labs collected and reviewed. Potassium being replaced. ACT collected.
[2024-05-26 11:47] LABS: ACT+ - POC 156 Seconds (82-134)
[2024-05-26 11:48] LABS: ACT-LR - POC 184 Seconds (116-155)
[2024-05-26 12:03] LABS: Glucose - Point of Care 154 mg/dl (70-99)
--- NOTE | 2024-05-26 12:28 | CON.INTV ---
Consultation
Consultation Request
Date/Time Consultation Requested: 05/26/24
Date/Time Consultation Performed: 05/26/24
Performing Provider: Natty
Reason for Consultation: CVICU
Medical History
-
History of Present Illness:
Patient is a 69-year-old male with previous history of severe MR, status post mitral clip 2019, cardiogenic shock on ECMO, CVA/A-fib, cardiomyopathy with reduced EF, OSCAR on CPAP presenting for elective mitral valve replacement due to recurrent A-fib
and congestive heart failure. Underwent procedure today 05/26/2024 and postoperatively transferred to CVICU for further management.
.
Past Medical History
Past Medical History: Other (see list below)
Social History
Tobacco: Non-smoker
Alcohol: None
Drug: None
Family History
Family History: Reviewed & Not Pertinent
Allergies / Home Medications
Allergies
Allergy/AdvReac Type Severity Reaction Status Date / Time
adhesive tape Allergy Unknown Verified 05/22/24 07:09
heparin Allergy HIT Verified 05/22/24 07:09
positive
shellfish derived Allergy Unknown Verified 05/22/24 07:09
Home Medications
�Medication �Instructions �Recorded �Confirmed �Last Taken �Type
atorvastatin 80 mg tablet 80 mg PO DAILY High cholesterol 10/11/19 05/22/24 05/21/24 09:00 History
acetaminophen 500 mg oral powder 500 mg PO Q6HPRN PRN mild pain 03/11/24 05/13/24 03/10/24 History
packet (Tylenol Extra Strength)
apixaban 5 mg tablet (Eliquis) 5 mg PO BID Blood Clot 03/11/24 05/22/24 05/19/24 21:00 History
Prevention/Tx
tadalafil 20 mg tablet 20 mg PO DAILYPRN PRN ed 03/11/24 05/13/24 3 Days Ago History
~03/08/24
amiodarone 200 mg tablet 200 mg PO DAILY Heart 04/30/24 05/22/24 05/21/24 09:00 History
Disease/Condition
amoxicillin 500 mg capsule 2,000 mg PO .1HR PRIOR TO DENTAL 05/13/24 05/13/24 Unknown History
PRN dental procedures
Review of Systems
-
Unable to Obtain full review of systems at this time due to: Patient Intubation
History Source: Physician
Vitals / Labs / Diagnostic Testing
Vital Signs
Temp Pulse Resp BP Pulse Ox
96.6 F L 83 12 132/84 96
05/26/24 12:00 05/26/24 12:00 05/26/24 12:00 05/26/24 06:08 05/26/24 12:00
Lab Data
05/26/24 10:53
Laboratory Results
05/25/24 05/26/24
23:15 10:53
PT 25.4 H
INR 2.33
APTT 54.5 H 89.8 H
pH 7.36
pCO2 46
pO2 150 H
HCO3 26.0
O2 Delivery Level
Diagnostic Testing:
Physical Exam
-
HEENT: Normocephalic, Anicteric and Moist Mucous Membranes
Cardiovascular: S1/S2 and Regular Rhythm
Respiratory: Clear, Non-Labored Respirations and Other (Chest tube/ETT)
GI: Soft, Non Distended and Non Tender
Neurology: Other (sedated/intubated)
Skin: Warm, Dry and Good Color
General: Comfortable and Other (NAD)
Assessment
-
Patient is a 69-year-old male with previous history of severe MR, status post mitral clip 2019, CVA/A-fib, cardiomyopathy with reduced EF, OSCAR on CPAP presenting for elective mitral valve replacement due to recurrent A-fib and congestive heart
failure. Underwent procedure today 05/26/2024 and postoperatively transferred to CVICU for further management.
Severe MR s/p open surgical left atrial maze / mitral valve replacement [31 mm bioprosthesis] 05/26/24
Perioperative MV
Postoperative anemia, mild
Hyperglycemia
Conditions present prior to admission:
Severe MR s/p MitraClip at [facility] 09/2019
Chronic HFrEF/Cardiomyopathy-EF 35%, improved to 45-50%
CAD status post large inferior/lateral wall myocardial infarction, c/b cardiogenic shock/ARDS 05/2019
Required ECMO at [facility]
Acute ischemic CVA during hospitalization [facility]-left occipital, lateral temporal and left parietal lobe 05/2019 with hemorrhagic conversion while anticoagulated on ECMO
Atrial fibrillation-previously on amiodarone-held due to transaminitis
Chronic oral anticoagulation
Seizure disorder by EEG 06/18/19
s/p VDRF with respiratory failure with large symptomatic right pleural effusion s/p intubation 10/12/19, Bronc 10/13/19, extubated 10/15/19
Previous tracheostomy tube as well as gastrostomy tube during his recent hospital stay [facility]
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
Right IJ-DVT with partially occlusive thrombus of the right mid subclavian
Pulmonary hypertension-severe on previous echocardiogram 08/2019
HTN
HLD
OSCAR on CPAP
Plan
S/p MVR/MAZE POD #0
Titrate off pressors per protocol
ECHO reviewed with low function, CM EF 45-50%
PA catheter readings reviewed
Management of chest tubes per primary service
Intubated/sedated, initiate SAT when able
Pain control
RASS goal of 0 to -1
Intubated for procedure, SBT trial when patient able to spontaneously breath
Current vent settings: CPAP wean initiated
ABG(s) reviewed/adequate
CXR with no obvious opacities/infiltrates, ETT in good position, lines/tubes in place
Extubate per protocol, BIPAP can be used if needed post extubation
Maintain supplement oxygen as needed
Prior history of pulmonary disease: h/o VDRF/trach/OSCAR on CPAP
No prior PFTs for review
Can add nebulizers if needed
Aspiration precautions
Encouraged incentive spirometry, OOB/ambulation/early mobility
Advance diet as tolerated following extubation
GI prophylaxis if indicated for mechanical ventilation >48 hours
Monitor critical I/O's
Paul/chest tube output
Hb/platelets postoperatively stable
Trend CBC for now
Can transfuse if indicated for Hb <7, plt <50 in surgical patients
DVT prophylaxis including SCDs
Insulin protocol initiated and ongoing
Transition to SQ/off as indicated per team
We will follow
Diagnostic Data
Chest X-Ray: 03/11/24- Mildly increased interstitial markings bilaterally which may represent mild interstitial edema. No focal airspace disease. No significant pleural effusions.
CT Scan: CTA 05/23/24- Lobulated cystic mass in the superior mediastinum, which very likely represents a benign mediastinal cyst, perhaps a thymic cyst or pericardial cyst. Consider a follow-up CT of the chest in 6 months to assess for stability.
Tiny amount of pleural fluid in the posterior and inferior aspect of the right hemithorax. Peripheral linear densities within the right lung, which is likely scarring. Coronary artery calcifications and/or stents. Scarring involving the lateral
aspect of the left upper kidney. Moderate vascular calcification with no evidence for abdominal aortic aneurysm.
Colonic diverticula with no CT evidence of diverticulitis.
Echo: 04/30/24: EF 45-50%, moderately dilated LA, mildly dilated RA, MitraClip in place with eccentric jet of severe MR, mean gradient 2 mmHg, mild AR
PFT's:
Reports and relevant images were personally reviewed.
-----
Critical Care time 51 mins -- The patient is admitted for acute critical illness for the treatment of vital organ failure and/or prevention of further life-threatening conditions. Total care includes time spent in review of history, physical exam,
medications, hemodynamic/ventilator parameters, laboratory data, imaging and discussion with house staff, pharmacy, respiratory therapy, transit mixer operator, and nursing.
[2024-05-26 13:00] LABS: Glucose - Point of Care 118 mg/dl (70-99)
--- NOTE | 2024-05-26 13:05 | W.PN.ONC2 ---
Today's Communication / Plan
-
hematology will sign off, please reach out for any questions or concerns
Impression
Impression
severe MR
HIT
Plan
Plan
1. HIT - Reviewed records available from [facility] in 2019 - revealing positive PF4 x3 w/ confirmatory ANDREW 'borderline positive.' Based on these findings it is unclear if the patient definitively experienced HIT at [facility] in 2019. Though, with these
findings of potenital prior HIT, would recommend use of alternative anticoagulation agent prior to and during planned procedure, to potentially prevent recurrence of HIT, as there is a risk for re-developing PF4/ heparin antibodies if re-exposed.
Cardiology utilizing argatroban for bridging. Platelets remain normal.
Subjective/Objective
Chief Complaint
cardiothoracic surgery today
Subjective
unable to communicate, intubated post-operatively
family member at bedside provided updates
Vital Signs:
Vital Signs
Temp Pulse Resp BP Pulse Ox
97.6 F 82 12 132/84 97
05/26/24 13:00 05/26/24 12:00 05/26/24 13:00 05/26/24 06:08 05/26/24 13:00
Lab Results:
Laboratory Data
WBC 8.8 10^3/uL (4.8-10.8) 05/25/24 05:04
Hgb 12.9 g/dL (13.0-18.0) L 05/26/24 10:53
Plt Count 161 10^3/uL (130-400) 05/26/24 10:53
PT 25.4 Sec (11.4-14.6) H 05/26/24 10:53
INR 2.33 05/26/24 10:53
APTT 89.8 Sec (23.4-35.0) H 05/26/24 10:53
eGFR > 60.00 05/25/24 05:04
Physical Exam
HEENT: Moist Mucous Membranes; No Jaundice
Pulmonary: Clear
GI: Soft
Review of Systems
Review of Systems
ROS notable for subjective, otherwise negative
[2024-05-26] MEDS: LR 250 ML IV ×3 (13:40→15:50)
[2024-05-26 13:52] LABS: Glucose - Point of Care 115 mg/dl (70-99)
[2024-05-26 13:58] LABS: B.E. 0.8 mmol/L; HCO3 26.6 mmol/L (21-28); O2 Saturation % 99.5 % (94-98); PCO2 46 mmHg (35-48); PO2 125 mmHg (83-108); Potassium 4.6 mMOL/L (3.5-5.1); pH 7.37 (7.35-7.45)
--- NOTE | 2024-05-26 14:22 | W.PN.CARDCBS ---
Addendum entered and electronically signed by Aleksandr Sanchez MD 05/26/24 16:03:
I saw and examined the patient.
The Bench Hand Machine's note was reviewed and I agree with the note.
Comment: Briefly, 69-year-old man past medical history of heart failure with reduced ejection fraction, mitral regurgitation s/p MitraClip (2019), paroxysmal atrial fibrillation, who underwent bioprosthetic mitral valve replacement, maze and left
atrial appendage clip earlier today
Postoperatively he remains in the CVICU where he is intubated and sedated
Hemodynamic support with dobutamine and norepinephrine
Filling pressures are reasonable by invasive hemodynamics
Telemetry and twelve-lead ECG are unremarkable, can currently maintaining sinus rhythm
Agree with current cardiac meds
We will continue to follow
Original Note:
Today's Communication / Plan
-
Post-op ECG without ischemia, follow ECGs
Impression / Plan
-
PCP: Dr. Zachary Craig
Primary Art Studio Teacher: Dr. Lima
Assessment:
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
No evidence of obstructive CAD by cath 05/22/24
Mitral regurgitation
s/p MitraClip for severe MR at [facility] 09/2019 with severe MR by JOHN 04/30/24, planned for bioprosthetic MVR, MAZE, JOELLE clip 05/26/24
s/p chordal sparing tissue MVR, JOELLE exclusion, ASD closure and surgical MAZE 05/26/24
Paroxysmal atrial fibrillation/typical atrial flutter
previous amiodarone therapy stopped due to elevated LFTs 09/2019
OAC with Eliquis
Chronic HFrEF
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
CAD
large inferior and lateral wall AK complicated by cardiogenic shock and ARDS 05/2019
s/p 3.5 mm Xience to Circ 10/9/19
nonobstructive CAD by cath 05/22/24
Previous admission for sev MR, cardiogenic shock, ECMO and CVA with transfer to [facility] 09/2019
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
h/o VDRF with respiratory failure with large symptomatic right pleural effusion s/p intubation 10/12/19, Bronch 10/13/19, extubated 10/15/19
h/o Seizure disorder by EEG, Keppra stopped without recurrence of seizure since 12/2021
JOHN 04/30/24: EF 45 to 50%, moderately dilated LA, mildly dilated RA, MitraClip in place with eccentric jet of severe MR, mean gradient 2 mmHg, mild AR
Plan:
-Patient is s/p tissue MVR, ASD repair, surgical MAZE and JOELLE exclusion on 05/26/24.
-Levo at 8, dobutamine at 2.5 and he is receiving his second LR bolus
-Patient is extubated
-Post-op ECG reviewed by me appears sinus without ischemic changes. QTc 520, but visually appears shorter. Follow up ECG in AM
-No evidence of obstructive CAD by cath 05/22/24
-Patient received argatroban bridge prior to tissue MVR due to h/o HIT.
-Outpatient dose of amiodarone 200 mg daily has been increased to 200 mg TID and patient is in SR. Check ECG to follow QTc.
Progress Note - Art Studio Teacher
Subjective
Date of Service: May 26, 2024
He is extubated
Objective
Labs:
05/26/24 10:53
Labs
Hgb 12.9 g/dL (13.0-18.0) L 05/26/24 10:53
Hct 36.9 % (39.0-52.0) L 05/26/24 10:53
Plt Count 161 10^3/uL (130-400) 05/26/24 10:53
PT 25.4 Sec (11.4-14.6) H 05/26/24 10:53
INR 2.33 05/26/24 10:53
APTT 89.8 Sec (23.4-35.0) H 05/26/24 10:53
Sodium 140 mmol/L (135-145) 05/25/24 05:04
Potassium 4.1 mmol/L (3.5-5.1) 05/25/24 05:04
BUN 21 mg/dl (9-20) H 05/26/24 10:53
Creatinine 1.0 mg/dL (0.7-1.3) 05/26/24 10:53
Glucose 145 mg/dl (70-99) H 05/26/24 10:53
Vital Signs and I&O:
Vital Signs
Temp Pulse Resp BP Pulse Ox
96.4 F L 74 8 88/61 96
05/26/24 14:08 05/26/24 14:00 05/26/24 14:00 05/26/24 13:36 05/26/24 14:00
Vital Signs
Temp Pulse Resp BP Pulse Ox
96.4 F L 74 8 88/61 96
05/26/24 14:08 05/26/24 14:00 05/26/24 14:00 05/26/24 13:36 05/26/24 14:00
Intake & Output
05/24/24 05/25/24 05/26/24 05/27/24
06:59 06:59 06:59 06:59
Intake Total 240 / 240 832.8 / 832.8 352.8 / 352.8 610.6 / 610.6
Output Total 455 / 455
Balance 240 / 240 832.8 / 832.8 352.8 / 352.8 155.6 / 155.6
Physical Exam
Physical Exam
GEN: AAOx3
HEENT: mmm
LUNGS:6 L NC. No audible wheeze
CV: SR on tele
ABD: ND
EXT: No edema
SKIN: No rash
--- NOTE | 2024-05-26 14:24 | RESPNOTE ---
Respiratory: patient extubated without incident, no stridor, no wheeze. SpO2 97% on 6 LPM nasal cannula.
[2024-05-26 15:03] LABS: Glucose - Point of Care 122 mg/dl (70-99)
[2024-05-26] MEDS: DILAUDID 0.25 MG IV (15:13)
[2024-05-26 15:23] LABS: Hematocrit 38.9 % (39.0-52.0); Hemoglobin 13.6 g/dL (13.0-18.0); Platelet Count 177 10^3/uL (130-400)
[2024-05-26] MEDS: ROXICODONE 5 MG PO (15:31)
--- NOTE | 2024-05-26 15:42 | PTCARENOTE ---
pt extubated @ 1423 to 6L NC, pt able to state name & , educated pt regarding IS, increasing levo to maintain MAP >65, CVP 7, 2x 250ml LR given, SWAN core temp reading 94.6 F, Paul core temp reading 96.1 F, Axillary temp reading 97.[address] PA
Adeline aware.
[2024-05-26] MEDS: TYLENOL PO (15:43)
[2024-05-26 16:03] LABS: Glucose - Point of Care 122 mg/dl (70-99)
[2024-05-26] MEDS: OFIRMEV 100 IV (16:09)
[2024-05-26] MEDS: LOW STRENGTH ASPIRIN PO (17:28)
[2024-05-26] MEDS: NEURONTIN PO (17:28)
[2024-05-26 18:16] LABS: Glucose - Point of Care 136 mg/dl (70-99)
[2024-05-26] MEDS: ZOFRAN 4 MG IV (18:30)
[2024-05-26] MEDS: DILAUDID 0.5 MG IV (18:31)
[2024-05-26] MEDS: ANCEF 5 IV (18:36)
[2024-05-26] MEDS: LOW STRENGTH ASPIRIN 81 MG PO (18:39)
--- NOTE | 2024-05-26 20:00 | PTCARENOTE ---
Addendum entered by Justino Billings RN 05/26/24 23:58:
Of notes [place] temp is 95 degrees. Internal Paul temperature is 95.8 degrees. Oral temp was 93.7 degrees. Ruth lackey remains on pt. YAKOV Velarde made aware of all temperatures. Pt not shivering.
Original Note:
Report received from Arleen and Ronen Winters. Walking rounds done. Pt assessed. VS recorded. Pt drowsy, arouses to voice. Oriented to person, place, purpose, time. Hx of expressive aphasia. Speech noted to to be slow yet clear. Equal computer tech strength.
Equal lower extremity strength. at bedside. States pt has a R visual field cut. Pt on 2L/NC. Sats 96%. BBS present. Decreased to B bases. No apneic periods observed. Audible heart tones. + pericardial rub present. CTs x 3 to -20 cm suction. See
flowsheet. CI checked via LIJ [place] Iggy catheter at 1953. CI 2.55, SVR 1110. Dobutamine gtt at 1.5 mcg/kg/min. Levophed gtt at 3 mcg/min. MAP's 70-80's. See VS flowsheet. AV wires attached to temporary PM. VVI. Back up rate 50, mA 7, sensitivity
2.5. Palpable pulses to B radials and B DP and PTs. L radial A-line with pulsatile waveform. Belly soft, nontender. Hypoactive bowel sounds x 4. No c/o nausea at present. Indwelling urinary catheter, draining clear, yellow urine. Glycemic protocol
maintained. Hourly CT and urine outputs recorded. YAKOV Velarde at [facility] to assess pt. Pt had received Dilaudid 0.5 mg IV during 6 pm hour. No c/o pain at present. Ongoing plan of care.
[2024-05-26 20:19] LABS: Glucose - Point of Care 153 mg/dl (70-99)
[2024-05-26 21:24] LABS: Glucose - Point of Care 156 mg/dl (70-99)
[2024-05-26] MEDS: SENOKOT-S 1 TABLET PO (21:34)
[2024-05-26 22:22] LABS: Glucose - Point of Care 155 mg/dl (70-99)
[2024-05-26] MEDS: PACERONE 200 MG PO (22:36)
[2024-05-26] MEDS: NEURONTIN 100 MG PO (22:36)
[2024-05-26] MEDS: TYLENOL 1000 MG PO (22:37)
--- NOTE | 2024-05-26 23:00 | PTCARENOTE ---
Repeat CI 2.81. Levo gtt titrated downwards at 2216 to 1 mcg/min per recommendation of PA. Ruth darya remains on pt until T > 98.
[2024-05-26 23:14] LABS: Glucose - Point of Care 130 mg/dl (70-99)
[2024-05-27] VITALS (23 sets, daily range): BP systolic 96–133; BP diastolic 53–76; PULSE 66–70; O2SAT 94–96; BMI 25.6
[2024-05-27 00:25] LABS: Glucose - Point of Care 127 mg/dl (70-99)
[2024-05-27] MEDS: ROXICODONE 2.5 MG PO (01:21)
--- NOTE | 2024-05-27 01:30 | PTCARENOTE ---
Repeat CI 2.42, SVR 1087 on Dobut 1.5 mcg/kg/min. Paul Temp 97.8, [place] temp 96.8. Oral temp 97.7. Prachi NAGY made aware. PA recommended discontinuing Ruth Hugger. Will monitor Temp ongoing. Pt repositioned in bed. C/O sternal pain 5/10. Roxicodone
2.5 mg given for pain. O2 Sats 96% on 2L/NC. No apneic periods. IS done with pt. Max 500 mls. Remains in SR 60-70 bpm. Levo gtt off at ~ MN.
[2024-05-27 01:33] LABS: Glucose - Point of Care 121 mg/dl (70-99)
[2024-05-27] MEDS: ANCEF 5 IV ×2 (02:28→11:02)
[2024-05-27 03:49] LABS: Glucose - Point of Care 123 mg/dl (70-99)
[2024-05-27 03:58] LABS: Hematocrit 36.9 % (39.0-52.0); Hemoglobin 13.2 g/dL (13.0-18.0); Mean Corp Hgb Conc. 35.8 g/dL (33.0-37.0); Mean Corpuscular Hgb 31.6 pg (27.0-31.0); Mean Corpuscular Volume 88.3 fL (80.0-94.0); Platelet Count 120 10^3/uL (130-400); Red Blood Cell Count 4.18 10^6/uL (4.70-6.10); Red Cell Dist. Width 12.9 % (11.5-14.5); White Blood Cell Count 23.2 10^3/uL (4.8-10.8)
--- NOTE | 2024-05-27 04:14 | PTCARENOTE ---
Cardene gtt off at 0323 for SB, V paced at 50, low MAP 60's. Prachi NAGY at bedside. Labs sent. EKG done. PA with EKG. CI done and is 2.72, SVR 873. Pt remains unchanged in neuro assessment. On 2L, sats 95%. No c/o pain. Pt in SB vs junctional
rhythm, rate 58. EKG with AF, slow ventricular response. PA aware. BP via cuff 110/57 (73), A line BP 116/53, MAP 70. Ongoing monitoring.
[2024-05-27 04:23] LABS: Blood Urea Nitrogen 27 mg/dl (9-20); Calcium 8.9 mg/dl (8.4-10.2); Carbon Dioxide 23 mmol/L (22-30); Chloride 104 mmol/L (98-107); Estimated Creatinine Clearance 81 ml/min; Glucose 127 mg/dl (70-99); Magnesium 2.2 mg/dl (1.6-2.3); Potassium 4.6 mmol/L (3.5-5.1); Sodium 139 mmol/L (135-145); eGFR > 60.00
--- NOTE | 2024-05-27 05:43 | W.PN.CT ---
Today's Communication / Plan
-
-pod #1
-at 3:25 am became bradycardic with v-pacing @ 50 briefly, then junctional high 50s. Will hold further BB and Amio d/t bradycardia.
-set epicardial pacer AAI @[address] Stevens (good a-capture with 1:1 AV conduction)
-CI 2.72, CO 5.31. Drips: Dobut 1.5, Insulin. Levo initially and now off, Cardene briefly for htn and now off
-CT output: L pleur , 2 meds 115/360 in 12/24 hrs
-wean off Dobut as tolerated, then deline
-d/c insulin
-anticoagulation eventually (was on Argatroban preop d/t +HIT and on Eliquis at home)
-of note, pt did receive 12.5 mg of Lopressor preop (lower dose d/t bradycardia).
-current meds (ASA, Lipitor, Lopressor, Amio, Protonix)
-encourage IS, OOB
Assessment / Plan
-
-s/p Chordal sparing mitral valve replacement [31 mm Mccoy Mitris Resilia bioprosthesis]; ASD closure, done primarily; Left atrial appendage exclusion (45 mm clip); Open surgical left atrial maze [combination of RF ablation and cryo] on 05/26/[address] Stevens, pod #1
-Intraop JOHN: LVEF preop was 45% with significant regional wall motion abnormalities toward the anterior lateral wall. Following surgery, his EF remained the same at 45% with the same motion. At the conclusion of the case, his left atrial appendage
was totally occluded with no residual stump or flow. After coming off cardiopulmonary bypass, there is no residual perivalvular leak of the bioprosthetic valve, normal excursion of the leaflets, the same trace to mild aortic valve insufficiency that
was central, and no residual shunt on the ASD.
-Severe mitral valve insufficiency, type I with a MitraClip in place and severe annular dilatation
-S/p MitraClip for severe MR at [facility] 09/2019
-Dilated LV with mixed cardiomyopathy
-Mild AI
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
-Paroxysmal typical atrial flutter with RVR (Amiodarone d/c'd d/t elevated LFTs, on Eliquis as of 03/06/24)
-S/p Linq monitor since 01/03/24
-Chronic systolic and diastolic heart failure with dilated left ventricle
-LVEF 45-50% per JOHN 04/30/24
-History of ECMO with iatrogenic injury to right common carotid
-History of tracheostomy
-Hx CAD S/p large inferior and lateral wall MT complicated by cardiogenic shock and ARDS 05/2019
-S/P PCI with Xience stent to LCx, 06/03/19
-HTN
-HLD
-OSCAR (uses CPAP)
-GERD
-Hx left occipital, lateral temporal and left parietal lobe CVA at [facility] while on ECMO 09/2019 with residual symptoms, word finding difficulties and encephalomalacia on recent head CT
-Hx DVT
-Hx Seizure disorder by EEG, Keppra stopped without recurrence of seizure since 12/2021
-S/p VDRF with respiratory failure with large symptomatic right pleural effusion s/p intubation 10/12/19, Bronc 10/13/19, extubated 10/15/19
-Acute postop blood loss anemia- stable
-Acute postop atelectasis
-Acute postop bradycardia, required pacing, then junctional rhythm 50s
Discussed patient care with: Nursing and Care Team
Subjective
-
Date of Service: May 26, 2024
Objective Data
-
Lab Results
05/26/24 15:10
05/26/24 10:53
PT 25.4 Sec (11.4-14.6) H 05/26/24 10:53
INR 2.33 05/26/24 10:53
APTT 89.8 Sec (23.4-35.0) H 05/26/24 10:53
Vital Signs
Vital Signs
Temp Pulse Resp BP Pulse Ox
96.4 F L 70 11 131/59 96
05/26/24 22:00 05/26/24 22:36 05/26/24 22:25 05/26/24 22:36 05/26/24 22:25
CT Intake/Output/Weight
05/26/24 05/26/24 05/27/24
06:59 18:59 06:59
Intake Total 1486.6 / 1668.8 182.2 / 1668.8
Output Total 730 / 915 185 / 915
Balance 756.6 / 753.8 -2.8 / 753.8
SaO2: 96
Physical Exam
-
General: Awake and AOx3
Cardiovascular: Regular rate & rhythm, No Murmurs and No Rub
Respiratory: Decreased Breath Sounds
Sternum: Stable
Incision: Clean, Dry and Intact
Extremities: No Edema
Data Reviewed
-
Lab Results: Results Reviewed
Medications: Active Meds Reviewed
Chest X-Ray: Report Reviewed and Image Reviewed
ECG: Report Reviewed and Image Reviewed
[2024-05-27] MEDS: DILAUDID 0.25 MG IV (05:48)
[2024-05-27 06:29] LABS: Glucose - Point of Care 100 mg/dl (70-99)
--- NOTE | 2024-05-27 07:15 | PTCARENOTE ---
Pt A paced at 545 per Prachi NAGY. Dobutamine 1.5 mcg/kg/min. Glycemic protocol. Levo and Cardene gtt remain off. Dilaudid 0.25 mg IV given during the 0500 hour for c/o sternal pain.
--- NOTE | 2024-05-27 07:32 | W.PN.CARDCBS ---
Addendum entered and electronically signed by Johanna Gerber DO 05/27/24 23:28:
I saw and examined the patient.
The Dehydrator Operator's note was reviewed and I agree with the note.
Comment: Seen and examined. at bedside. Overnight events reviewed Reviewed telemetry
GEN: NAD. nc O2 2 l
HEENT: mmm
LUNGS: bronchovascular BS, decreased. + CT. + Pacer wires
CV: regular. + S1 S2; no murmur
ABD: ND/NT decreased BS
EXT: No edema
Plan:
s/p Chordal sparing mitral valve replacement [31 mm Mccoy Mitris Resilia bioprosthesis]; ASD closure, done primarily; Left atrial appendage exclusion (45 mm clip); Open surgical left atrial maze [combination of RF ablation and cryo] on 05/26/[address] Stevens, pod #1
-Hemodynamics stable with underlying junctional rhythm
-Dobutamine, Cardene and Levophed all off as of 05/27/24 AM.
-ECG from 05/27/24 reviewed and appears to be junctional.
-Post-op doses of amiodarone 200 mg TID and Lopressor 12.5 mg BID are on hold.
-CTS team set epicardial pacer to AAI at 64
-Monitor tele
-Hx of PAF on amio preop
-Patient received argatroban bridge prior to tissue MVR due to h/o HIT. Eventually resume prior to admission dose of Eliquis 5 mg BID
-No evidence of obstructive CAD by cath 05/22/24
- Supportive post op care
- will follow with you
Original Note:
Today's Communication / Plan
-
Lopressor and amio on hold for junctional rhythm
Pressors stopped earlier this morning, will follow
Impression / Plan
-
PCP: Dr. Zachary Craig
Primary Route Inspector: Dr. Lima
Assessment:
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
No evidence of obstructive CAD by cath 05/22/24
Mitral regurgitation
s/p MitraClip for severe MR at [facility] 09/2019 with severe MR by JOHN 04/30/24, planned for bioprosthetic MVR, MAZE, JOELLE clip 05/26/24
s/p chordal sparing tissue MVR, JOELLE exclusion, ASD closure and surgical MAZE 05/26/24
Paroxysmal atrial fibrillation/typical atrial flutter
previous amiodarone therapy stopped due to elevated LFTs 09/2019
OAC with Eliquis
Chronic HFrEF
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
CAD
large inferior and lateral wall MA complicated by cardiogenic shock and ARDS 05/2019
s/p 3.5 mm Xience to Circ 06/03/19
nonobstructive CAD by cath 05/22/24
Previous admission for sev MR, cardiogenic shock, ECMO and CVA with transfer to [facility] 09/2019
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
h/o VDRF with respiratory failure with large symptomatic right pleural effusion s/p intubation 10/12/19, Bronch 10/13/19, extubated 10/15/19
h/o Seizure disorder by EEG, Keppra stopped without recurrence of seizure since 12/2021
JOHN 04/30/24: EF 45 to 50%, moderately dilated LA, mildly dilated RA, MitraClip in place with eccentric jet of severe MR, mean gradient 2 mmHg, mild AR
JOHN 05/26/24: post-op, EF 50-55%, MVR well-seated without perivalvular leak and no MS. s/p JOELLE clip without flow
Plan:
-Dobutamine, Cardene and Levophed all off as of 05/27/24 AM.
-ECG from 05/27/24 reviewed and appears to be junctional. Post-op doses of amiodarone 200 mg TID and Lopressor 12.5 mg BID are on hold. CTS team set epicardial pacer to AAI at 64
-Patient was taking amiodarone 200 mg daily prior to admission for increased Afib burden
-Patient is s/p tissue MVR, ASD repair, surgical MAZE and JOELLE exclusion on 05/26/24.
-No evidence of obstructive CAD by cath 05/22/24
-Patient received argatroban bridge prior to tissue MVR due to h/o HIT. Eventually resume prior to admission dose of Eliquis 5 mg BID
Progress Note - Route Inspector
Subjective
Date of Service: May 27, 2024
He wasn't sure what day it was and if it was day or night
Objective
Labs:
05/27/24 03:44
05/27/24 03:44
Labs
Hgb 13.2 g/dL (13.0-18.0) 05/27/24 03:44
Hct 36.9 % (39.0-52.0) L 05/27/24 03:44
Plt Count 120 10^3/uL (130-400) L D 05/27/24 03:44
PT 25.4 Sec (11.4-14.6) H 05/26/24 10:53
INR 2.33 05/26/24 10:53
APTT 89.8 Sec (23.4-35.0) H 05/26/24 10:53
Sodium 139 mmol/L (135-145) 05/27/24 03:44
Potassium 4.6 mmol/L (3.5-5.1) 05/27/24 03:44
BUN 27 mg/dl (9-20) H 05/27/24 03:44
Creatinine 0.9 mg/dL (0.7-1.3) 05/27/24 03:44
Glucose 127 mg/dl (70-99) H 05/27/24 03:44
Vital Signs and I&O:
Vital Signs
Temp Pulse Resp BP Pulse Ox
98 F 66 14 102/62 96
05/27/24 06:00 05/27/24 06:30 05/27/24 06:30 05/27/24 06:00 05/27/24 06:30
Vital Signs
Temp Pulse Resp BP Pulse Ox
98 F 66 14 102/62 96
05/27/24 06:00 05/27/24 06:30 05/27/24 06:30 05/27/24 06:00 05/27/24 06:30
Intake & Output
05/25/24 05/26/24 05/27/24 05/28/24
06:59 06:59 06:59 06:59
Intake Total 832.8 / 832.8 352.8 / 352.8 2006.4 / 2006.4
Output Total 1220 / 1220
Balance 832.8 / 832.8 352.8 / 352.8 786.4 / 786.4
Physical Exam
Physical Exam
GEN: AAOx3
HEENT: mmm
LUNGS: 2 L NC. No audible wheeze
CV: Paced on tele
ABD: ND
EXT: No edema
SKIN: No rash
[2024-05-27] MEDS: TYLENOL 1000 MG PO ×3 (07:42→21:06)
[2024-05-27 07:45] LABS: ALT (SGPT) 24 U/L (0-50); AST (SGOT) 76 U/L (17-59); Albumin 3.7 g/dl (3.5-5.0); Alkaline Phosphatase 55 U/L (38-126); Total Bilirubin 0.6 mg/dl (0.2-1.3); Total Protein 5.8 g/dl (6.3-8.2)
[2024-05-27 07:56] LABS: Direct Bilirubin 0.1 mg/dl (0.0-0.4)
--- NOTE | 2024-05-27 08:00 | PTCARENOTE ---
pt received from previous RN, oriented, in bed. residual expressive aphasia and R visual field cut from previous stroke, per pt-unchanged. 100% A-paced on the monitor, +rub. A&V wires in place, AAI 66/10. PAP 20-30s/10s. CVP ~10. CI>2, dobutamine
gtt off per Dr. Stevens. palpable pulses. pt on 2LNC, 96% POX. lungs diminished. IS encouraged. CT x3, no air leak or crepitus noted. pt abdomen s/n, denies n/v. tolerating clears. Paul in place, clear yellow urine. sternal incision DYE TANK TENDER, chest tube
site c/d/i. LIJ cordis/swan maintained. L radial [place] flushed, zeroed, and calibrated. PIV. insulin gtt running per protocol. L pleural CT dc'd as ordered, dressing c/d/i. see worklist for VS, I&O, and assessment.
--- NOTE | 2024-05-27 08:14 | W.PN.ANS.POP ---
Anesthesia Post Operative
- Anesthesia Post Op Note
Vital Signs Stable-See Nursing Note: Yes
Airway Patent: Yes
Adequate Pain Control: Yes
Change in Mental Status: No
Current Postoperative Nausea & Vomiting: No
Anesthesia Complications: No
General Anesthetic Recall: No
Unplanned Admission: No
Post Op Hydration Adequate: Yes
- -
Pt awake and alert, resting comfortably in bed with no anesthesia related c/o at time of post op visit. VSS
[2024-05-27 08:19] LABS: Glucose - Point of Care 113 mg/dl (70-99)
[2024-05-27] MEDS: BACTROBAN 2% OINTMENT 1 APPLIC NASAL ×2 (09:13→20:43)
[2024-05-27] MEDS: LIPITOR 80 MG PO (09:13)
[2024-05-27] MEDS: SENOKOT-S 1 TABLET PO ×2 (09:13→20:42)
[2024-05-27] MEDS: NEURONTIN 100 MG PO ×3 (09:13→21:06)
[2024-05-27] MEDS: LOW STRENGTH ASPIRIN 81 MG PO (09:13)
[2024-05-27] MEDS: PROTONIX 40 MG PO (09:13)
[2024-05-27] MEDS: MAGNESIUM OXIDE 500 MG PO ×2 (09:13→20:42)
[2024-05-27 10:09] LABS: Glucose - Point of Care 101 mg/dl (70-99)
[2024-05-27] MEDS: NSS 500 IV (11:02)
--- NOTE | 2024-05-27 11:38 | W.PN.INTV ---
Today's Communication / Plan
Recommendations
stable post extubation, on room air
off pressors, transitioning off insulin
encouraged oob/IS/pt
chest tubes management
can transfer to [facility] per team, we will sign off upon transfer
Assessment
-
Patient is a 69-year-old male with previous history of severe MR, status post mitral clip 2019, CVA/A-fib, cardiomyopathy with reduced EF, OSCAR on CPAP presenting for elective mitral valve replacement due to recurrent A-fib and congestive heart
failure. Underwent procedure today 05/26/2024 and postoperatively transferred to CVICU for further management.
Severe MR s/p open surgical left atrial maze / mitral valve replacement [31 mm bioprosthesis] 05/26/24
Perioperative MV
Postoperative anemia, mild
Hyperglycemia
Conditions present prior to admission:
Severe MR s/p MitraClip at [facility] 09/2019
Chronic HFrEF/Cardiomyopathy-EF 35%, improved to 45-50%
CAD status post large inferior/lateral wall myocardial infarction, c/b cardiogenic shock/ARDS 05/2019
Required ECMO at [facility]
Acute ischemic CVA during hospitalization [facility]-left occipital, lateral temporal and left parietal lobe 05/2019 with hemorrhagic conversion while anticoagulated on ECMO
Atrial fibrillation-previously on amiodarone-held due to transaminitis
Chronic oral anticoagulation
Seizure disorder by EEG 06/18/19
s/p VDRF with respiratory failure with large symptomatic right pleural effusion s/p intubation 10/12/19, Bronc 10/13/19, extubated 10/15/19
Previous tracheostomy tube as well as gastrostomy tube during his recent hospital stay [facility]
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
Right IJ-DVT with partially occlusive thrombus of the right mid subclavian
Pulmonary hypertension-severe on previous echocardiogram 08/2019
HTN
HLD
OSCAR on CPAP
Plan
S/p MVR/MAZE POD #1
Titrated off pressors per protocol
ECHO reviewed with low function, CM EF 45-50%
PA catheter discontinued
Management of chest tubes per primary service
Pain control
RASS goal of 0 to -1
Intubated for procedure, extubated and doing well
ABG(s) reviewed/adequate
CXR with stable postop changes
Maintain supplement oxygen as needed
Prior history of pulmonary disease: h/o VDRF/trach/OSCAR on CPAP
No prior PFTs for review
Can add nebulizers if needed
Aspiration precautions
Encouraged incentive spirometry, OOB/ambulation/early mobility
Advance diet as tolerated following extubation
GI prophylaxis if indicated for mechanical ventilation >48 hours
Monitor critical I/O's
Paul/chest tube output
Hb/platelets postoperatively stable
Trend CBC for now
Can transfuse if indicated for Hb <7, plt <50 in surgical patients
DVT prophylaxis including SCDs
Insulin protocol initiated and titrating to off
Transition to SQ/off as indicated per team
Diagnostic Data
Chest X-Ray: 03/11/24- Mildly increased interstitial markings bilaterally which may represent mild interstitial edema. No focal airspace disease. No significant pleural effusions.
CT Scan: CTA 05/23/24- Lobulated cystic mass in the superior mediastinum, which very likely represents a benign mediastinal cyst, perhaps a thymic cyst or pericardial cyst. Consider a follow-up CT of the chest in 6 months to assess for stability.
Tiny amount of pleural fluid in the posterior and inferior aspect of the right hemithorax. Peripheral linear densities within the right lung, which is likely scarring. Coronary artery calcifications and/or stents. Scarring involving the lateral
aspect of the left upper kidney. Moderate vascular calcification with no evidence for abdominal aortic aneurysm.
Colonic diverticula with no CT evidence of diverticulitis.
Echo: 04/30/24: EF 45-50%, moderately dilated LA, mildly dilated RA, MitraClip in place with eccentric jet of severe MR, mean gradient 2 mmHg, mild AR
PFT's:
Reports and relevant images were personally reviewed.
-----
Critical Care time 35 mins -- The patient is admitted for acute critical illness for the treatment of vital organ failure and/or prevention of further life-threatening conditions. Total care includes time spent in review of history, physical exam,
medications, hemodynamic/ventilator parameters, laboratory data, imaging and discussion with house staff, pharmacy, respiratory therapy, crosscutter rolled glass, and nursing.
Subjective Dataa
Subjective Data
Date of Service:
Date of Service: May 27, 2024
Chief Complaint: Charger Operator Helper Follow Up
Subjective:
Doing well post extubation
Currently stable on RA
No new complaints
Objective Data
Data Reviewed
Vital Signs / I&O / Oxygen:
Vital Signs
Temp Pulse Resp BP Pulse Ox
97.5 F 66 14 103/63 95
05/27/24 10:00 05/27/24 11:15 05/27/24 11:15 05/27/24 11:00 05/27/24 11:15
Intake and Output
05/26/24 05/27/24 05/28/24
06:59 06:59 06:59
Intake Total 352.8 / 352.8 2005. / 2030.7 175.9 / 175.9
Output Total 1220 / 1280 250 / 250
Balance 352.8 / 352.8 786.4 / 751.7 -74.1 / -74.1
SaO2 [SIMV] 96
SaO2 95
Nasal Cannula flow liters per 2
minute
Physical Exam
General: Comfortable and Other (NAD)
HEENT: Normocephalic, Anicteric and Moist Mucous Membranes
Cardiovascular: S1-S2 and Regular Rhythm
Respiratory: Clear, Non-Labored Respirations and Chest Tube
GI: Soft, Non Distended and Non Tender
Neurology: Awake, Alert, Oriented and No Motor Deficits
Skin: Warm, Dry and Good Color
Labs/Micro/Reports
Lab Data
05/27/24 03:44
05/27/24 03:44
Laboratory Results
05/26/24
13:49
pH 7.37
pCO2 46
pO2 125 H
HCO3 26.6
O2 Delivery Level Not Reportable
[2024-05-27 11:44] LABS: Glucose - Point of Care 124 mg/dl (70-99)
--- NOTE | 2024-05-27 12:00 | PTCARENOTE ---
pt VSS, pt OOB to chair w/ 2 person assist, at bedside attentive to patient. PA aware of hemodynamics. IS encouraged.
--- NOTE | 2024-05-27 13:30 | PTCARENOTE ---
pt placed back to bed w/ 2 person assist. L radial [place] dc'd as ordered, dressing c/d/i. [facility] [place] dc'd as ordered, LIJ cordis maintained as ordered. resting between care.
[2024-05-27] MEDS: FERRLECIT 110 MG IV (13:50)
--- NOTE | 2024-05-27 15:30 | CM ---
CM following for DC planning needs.
Pt. is POD#[address] Surgery[address]
DC plan is for home w/ CT Transitional Care RN.
CM to follow for DC planning needs.
--- NOTE | 2024-05-27 16:25 | PTCARENOTE ---
pt VSS, no changes in assessment. esther dc'd per PA, urinal at bedside. pt OOB to chair w/ assist. IS encouraged.
--- NOTE | 2024-05-27 21:00 | PTCARENOTE ---
Addendum entered by Avril Yun RN 05/27/24 22:35:
Pt repositioned out of the chair (not OOB) and moved into bed w/ assist x2.
Original Note:
Assumed care of pt from tarah RN. Pt AAOx3. Pt w/ hx of right visual field cut and word searching. Pt 100% A-paced on the tele monitor. HR 66. +Rub. Temporary epicardial A/V wires intact and set to VVI 66/10/0.5. Palpable pulses. No edema noted.
Pt on RA. POX 96%. Lung sounds diminished. Mediastinal CTx2 intact, to -20 suction, no air-leak noted at this time, and output appropriate. Pt abdomen soft/nontender. +BS. Pt DTV. Bladder scanned for 66 mL. No urge to void. All surgical sites
stable. Pt Left IJ cordis CDI. Pt OOB and into bed w/ assistx2. See worklist for full nursing assessment and interventions. Call esqueda within reach.
[2024-05-28] VITALS (24 sets, daily range): BP systolic 97–130; BP diastolic 52–74; PULSE 56–86; O2SAT 96–98; BMI 25.3
--- NOTE | 2024-05-28 00:30 | PTCARENOTE ---
Pt reassessed. Pt remains 100% A-paced on the tele monitor. HR 66. BP stable. Pt using CPAP machine. POX 94%. CT assessment unchanged. Pt bladder scanned for 202 mL. No urge to void or bladder discomfort. All surgical sites stable. Pt repositioned
in bed. Call esqueda within reach.
[2024-05-28 04:32] LABS: Hematocrit 32.7 % (39.0-52.0); Hemoglobin 11.5 g/dL (13.0-18.0); Mean Corp Hgb Conc. 35.2 g/dL (33.0-37.0); Mean Corpuscular Hgb 30.7 pg (27.0-31.0); Mean Corpuscular Volume 87.4 fL (80.0-94.0); Mean Platelet Volume 10.6 fL (7.4-10.4); Platelet Count 106 10^3/uL (130-400); Red Blood Cell Count 3.74 10^6/uL (4.70-6.10); Red Cell Dist. Width 13.6 % (11.5-14.5); White Blood Cell Count 26.3 10^3/uL (4.8-10.8)
[2024-05-28 05:00] LABS: Blood Urea Nitrogen 29 mg/dl (9-20); Calcium 8.6 mg/dl (8.4-10.2); Carbon Dioxide 29 mmol/L (22-30); Chloride 100 mmol/L (98-107); Estimated Creatinine Clearance 91 ml/min; Glucose 116 mg/dl (70-99); Magnesium 2.2 mg/dl (1.6-2.3); Potassium 4.3 mmol/L (3.5-5.1); Sodium 136 mmol/L (135-145); eGFR > 60.00
--- NOTE | 2024-05-28 05:00 | PTCARENOTE ---
Pt reassessed. Pt SR on the tele monitor. HR 70s. No pacing noted at this time. BP stable. Pt using CPAP machine. POX 95%. CT assessment unchanged. All surgical sites stable. Pt bladder scanned for 331 mL of urine. Pt w/ slight urge to void - pt sat
at the edge of bed in an attempt to void. Pt unable to void at this time. Pt repositioned back into bed. Labs drawn and sent. Call esqueda within reach.
[2024-05-28] MEDS: TYLENOL 1000 MG PO ×3 (05:33→22:09)
[2024-05-28] MEDS: FLOMAX 0.4 MG PO (05:33)
--- NOTE | 2024-05-28 05:53 | W.PN.CT ---
Today's Communication / Plan
-
-pod #2
-in nsr 60s-70s this am (was junctional rhythm 40s last night). Holding Loressor and Amio
-maintain pw (AAI 50)
-CT output: 2 meds 100/315 in 12/24 hrs
-urinary retention- follow bladder scan, waiting to void since Paul out, straight cath prn. Started Flomax
-Echo on 05/29 for MV follow-up
-will plan to restart Eliquis soon (was on Argatroban preop d/t +HIT and on Eliquis at home)
-current meds (ASA, Lipitor, Protonix)
-encourage IS, OOB
Assessment / Plan
-
-s/p Chordal sparing mitral valve replacement [31 mm Mccoy Mitris Resilia bioprosthesis]; ASD closure, done primarily; Left atrial appendage exclusion (45 mm clip); Open surgical left atrial maze [combination of RF ablation and cryo] on 05/26/[address] Stevens, pod #2
-Intraop JOHN: LVEF preop was 45% with significant regional wall motion abnormalities toward the anterior lateral wall. Following surgery, his EF remained the same at 45% with the same motion. At the conclusion of the case, his left atrial appendage
was totally occluded with no residual stump or flow. After coming off cardiopulmonary bypass, there is no residual perivalvular leak of the bioprosthetic valve, normal excursion of the leaflets, the same trace to mild aortic valve insufficiency that
was central, and no residual shunt on the ASD.
-Severe mitral valve insufficiency, type I with a MitraClip in place and severe annular dilatation
-S/p MitraClip for severe MR at [facility] 09/2019
-Dilated LV with mixed cardiomyopathy
-Mild AI
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
-Paroxysmal typical atrial flutter with RVR (Amiodarone d/c'd d/t elevated LFTs, on Eliquis as of 03/06/24)
-S/p Linq monitor since 01/03/24
-Chronic systolic and diastolic heart failure with dilated left ventricle
-LVEF 45-50% per [facility] 04/30/24
-History of ECMO with iatrogenic injury to right common carotid
-History of tracheostomy
-Hx CAD S/p large inferior and lateral wall [place] complicated by cardiogenic shock and ARDS 05/2019
-S/P PCI with Xience stent to LCx, 06/03/19
-No evidence of obstructive CAD by cath 05/22/24
-HTN
-HLD
-OSCAR (uses CPAP)
-GERD
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
-Hx DVT
-Hx Seizure disorder by EEG, Keppra stopped without recurrence of seizure since 12/2021
-S/p VDRF with respiratory failure with large symptomatic right pleural effusion s/p intubation 10/12/19, Bronc 10/13/19, extubated 10/15/19
-Acute postop blood loss anemia- stable
-Acute postop atelectasis
-Acute postop bradycardia, required pacing, then junctional rhythm 50s
-Acute postop urinary retention
Discussed patient care with: Nursing and Care Team
Subjective
-
Date of Service: May 28, 2024
Objective Data
-
PT 25.4 Sec (11.4-14.6) H 05/26/24 10:53
INR 2.33 05/26/24 10:53
APTT 89.8 Sec (23.4-35.0) H 05/26/24 10:53
Vital Signs
Vital Signs
Temp Pulse Resp BP Pulse Ox
98 F 66 16 122/65 94
05/28/24 00:04 05/28/24 00:04 05/28/24 00:04 05/28/24 00:04 05/28/24 00:04
CT Intake/Output/Weight
05/27/24 05/27/24 05/28/24
06:59 18:59 06:59
Intake Total 519.8 / 2031.7 355.9 / 405.9 50 / 405.9
Output Total 490 / 1280 580 / 620 40 / 620
Balance 29.8 / 751.7 -224.1 / -214.1 10 / -214.1
SaO2: 94
Physical Exam
-
General: Awake and AOx3
Cardiovascular: Regular rate & rhythm, No Murmurs and No Rub
Respiratory: Decreased Breath Sounds
Sternum: Stable
Incision: Clean, Dry and Intact
Extremities: No Edema
--- NOTE | 2024-05-28 08:00 | PTCARENOTE ---
pt received from previous RN, oriented, OOB in chair. residual expressive aphasia and R visual field cut from previous stroke, per pt-unchanged. SR on the monitor, HR 70s. A&V wires in place, AAI 50/10. palpable pulses. pt on RA, 94% POX. lungs
diminished R base. IS encouraged, 1750ml. CTx2, no air leak or crepitus noted. pt abdomen s/n, denies n/v. diet tolerated well. +flatus. voids on BSC. sternal incision approximated, POINTER MACHINE OPERATOR. chest tube site c/d/i. LIJ cordis maintained. PIV. see
worklist for VS, I&O, and assessment.
--- NOTE | 2024-05-28 08:25 | W.PN.CARDCBS ---
Addendum entered and electronically signed by Chico Ferguson MD 05/28/24 12:19:
I saw and examined the patient.
The Weight Analyst's note was reviewed and I agree with the note.
Comment:
GEN: No distress, awake, Ox3
HEENT: supple, anicteric, mmm
LUNGS: CTA, no wheezes/rales
CV: Reg, S1/S2, no murmur
ABD: soft, BS+, NT/ND
EXT: No edema
NEURO: Gross non-focal
SKIN: No rash
Plan:
Doing well. Remains in sinus with first-degree AV block.
Continue to hold AV rebecca blockers.
Resume Eliquis tonight. Hemoglobin at 11.5
Original Note:
Today's Communication / Plan
-
Follow on tele
Impression / Plan
-
PCP: Dr. Zachary Craig
Primary Stud Beef Cattle Farmer: Dr. Lima
Assessment:
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
No evidence of obstructive CAD by cath 05/22/24
Mitral regurgitation
s/p MitraClip for severe MR at [facility] 09/2019 with severe MR by JOHN 04/30/24, planned for bioprosthetic MVR, MAZE, JOELLE clip 05/26/24
s/p chordal sparing tissue MVR, JOELLE exclusion, ASD closure and surgical MAZE 05/26/24
Paroxysmal atrial fibrillation/typical atrial flutter
previous amiodarone therapy stopped due to elevated LFTs 09/2019
OAC with Eliquis
Chronic HFrEF
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
CAD
large inferior and lateral wall [place] complicated by cardiogenic shock and ARDS 05/2019
s/p 3.5 mm Xience to Circ 06/03/19
nonobstructive CAD by cath 05/22/24
Previous admission for sev MR, cardiogenic shock, ECMO and CVA with transfer to [facility] 09/2019
h/o left occipital, lateral temporal and left parietal lobe CVA at [facility] while on with residual expressive aphasia ECMO 09/2019
h/o VDRF with respiratory failure with large symptomatic right pleural effusion s/p intubation 10/12/19, Bronch 10/13/19, extubated 10/15/19
h/o Seizure disorder by EEG, Keppra stopped without recurrence of seizure since 12/2021
JOHN 04/30/24: EF 45 to 50%, moderately dilated LA, mildly dilated RA, MitraClip in place with eccentric jet of severe MR, mean gradient 2 mmHg, mild AR
JOHN 05/26/24: post-op, EF 50-55%, MVR well-seated without perivalvular leak and no MS. s/p JOELLE clip without flow
Plan:
-Overnight tele reviewed and junctional, but improved to SR 05/28/24.
-Post-op doses of amiodarone 200 mg TID and Lopressor 12.5 mg BID are on hold.
-Patient was taking amiodarone 200 mg daily prior to admission for increased Afib burden
-Patient is s/p tissue MVR, ASD repair, surgical MAZE and JOELLE exclusion on 05/26/24.
-No evidence of obstructive CAD by cath 05/22/24
-Eliquis 5 mg BID set to resume 05/29/24 AM. Patient received argatroban bridge prior to tissue MVR due to h/o HIT.
Progress Note - Stud Beef Cattle Farmer
Subjective
Date of Service: May 28, 2024
He feels well, voiding without difficulty by his report
Objective
Labs:
05/28/24 04:18
05/28/24 04:18
Labs
Hgb 11.5 g/dL (13.0-18.0) L 05/28/24 04:18
Hct 32.7 % (39.0-52.0) L 05/28/24 04:18
Plt Count 106 10^3/uL (130-400) L 05/28/24 04:18
PT 25.4 Sec (11.4-14.6) H 05/26/24 10:53
INR 2.33 05/26/24 10:53
APTT 89.8 Sec (23.4-35.0) H 05/26/24 10:53
Sodium 136 mmol/L (135-145) 05/28/24 04:18
Potassium 4.3 mmol/L (3.5-5.1) 05/28/24 04:18
BUN 29 mg/dl (9-20) H 05/28/24 04:18
Creatinine 0.8 mg/dL (0.7-1.3) 05/28/24 04:18
Glucose 116 mg/dl (70-99) H 05/28/24 04:18
Vital Signs and I&O:
Vital Signs
Temp Pulse Resp BP Pulse Ox
97.6 F 69 14 109/68 94
05/28/24 04:10 05/28/24 06:30 05/28/24 04:10 05/28/24 04:10 05/28/24 04:10
Vital Signs
Temp Pulse Resp BP Pulse Ox
97.6 F 69 14 109/68 94
05/28/24 04:10 05/28/24 06:30 05/28/24 04:10 05/28/24 04:10 05/28/24 04:10
Intake & Output
05/26/24 05/27/24 05/28/24 05/29/24
06:59 06:59 06:59 06:59
Intake Total 352.8 / 352.8 2006.4 / 2031.7 465.9 / 475.9
Output Total 1220 / 1280 730 / 1280 550 / 550
Balance 352.8 / 352.8 786.4 / 751.7 -264.1 / -804.1 -540 / -540
Physical Exam
Physical Exam
GEN: AAOx3
HEENT: mmm
LUNGS: No audible wheeze
CV: Paced on tele
ABD: ND
EXT: No edema
SKIN: No rash
[2024-05-28] MEDS: SENOKOT-S 1 TABLET PO ×2 (08:29→20:03)
[2024-05-28] MEDS: MAGNESIUM OXIDE 500 MG PO ×2 (08:29→20:03)
[2024-05-28] MEDS: PROTONIX 40 MG PO (08:29)
[2024-05-28] MEDS: NEURONTIN 100 MG PO ×3 (08:29→22:09)
[2024-05-28] MEDS: LOW STRENGTH ASPIRIN 81 MG PO (08:29)
[2024-05-28] MEDS: LIPITOR 80 MG PO (08:29)
[2024-05-28] MEDS: BACTROBAN 2% OINTMENT 1 APPLIC NASAL ×2 (08:30→20:03)
[2024-05-28] MEDS: LASIX 20 MG IV (10:49)
--- NOTE | 2024-05-28 11:15 | PTCARENOTE ---
pt ambulated in hallway w/ CR. BARREL STAVE INSPECTOR aware of CT output. pt placed back to bed. A&V wires pulled by BARREL STAVE INSPECTOR. pt aware to stay in bed x1hr. q15 VS as ordered. at bedside.
--- NOTE | 2024-05-28 11:38 | W.PN.UPDATE ---
Update Note
Progress Note Update
Patient has not required pacing wires. There has been no bradycardia, arrhythmias, complete heart block, or significant pauses.
Site was cleansed with CHG thoroughly
1 atrial and 1 ventricular epicardial pacing wires were pulled. Bedrest x1 hour and VS [id number] x 4.
Vidya CASTILLO
Cardiac Surgery
--- NOTE | 2024-05-28 12:25 | PTCARENOTE ---
pt VSS, no changes in assessment. INFECTIOUS DISEASE TECHNICIAN aware of CT output. Med CTs dc'd as ordered, dressing c/d/i. pt voiding in urinal. OOB to chair for lunch.
[2024-05-28] MEDS: NSS IV (12:28)
[2024-05-28] MEDS: FERRLECIT 110 MG IV (14:15)
--- NOTE | 2024-05-28 15:17 | ECGCV ---
<Leticia Rodriguez NP> notified of ECG critical value identified by electronic interpretation on ECG completed on <05/28/24>, at <1518>.
--- NOTE | 2024-05-28 15:59 | PTCARENOTE ---
pt VS completed, pt appears in Mobitz I on the monitor, VSS. EKG performed. GLOBAL SOURCING MANAGER Leticia Rodriguez and YAKOV Ayers aware. pt asymptomatic. pt OOB to chair, IS encouraged.
[2024-05-28] MEDS: LIDOCAINE 4% PATCH 1 PATCH TOPICAL (17:56)
--- NOTE | 2024-05-28 20:30 | PTCARENOTE ---
Patient received OOB in chair watching television. Patient's at bedside. Patient A+A+Ox3. Patient assisted with assist x1 to bathroom. Sternal Precautions. Patient sat on toilet. Voided. Positive flatus. No BM. Patient assisted to
bathroom sink. Brushed teeth and washed face. Patient assisted to bed. No c/o SOB. Room air. SpO2 95%. 2L O2 or CPAP HS. scholarship counselor: Wenckebach - Type I Second Degree Block. Heart rate 50-60's. Blood pressure 121/55 (69). Patient
with no c/o chest pain, pressure or discomfort. Normoactive bowel sounds. No c/o nausea. No vomiting. Right I.J. Cordis with saline flush 10 ml/hr. Sternal incision - Intact - Surgical adhesive - Open to air. Chest tube dressing intact.
Patient with no c/o back or flank pain. Assessment as documented.
[2024-05-29] VITALS (12 sets, daily range): BP systolic 98–129; BP diastolic 35–69; PULSE 58–63; O2SAT 96–98; BMI 24.9
--- NOTE | 2024-05-29 | PTCARENOTE ---
Patient sleeping without difficulty. CPAP intact. Assessment as documented.
[2024-05-29 03:55] LABS: Hematocrit 30.9 % (39.0-52.0); Hemoglobin 10.7 g/dL (13.0-18.0); Mean Corp Hgb Conc. 34.6 g/dL (33.0-37.0); Mean Corpuscular Hgb 30.1 pg (27.0-31.0); Platelet Count 102 10^3/uL (130-400); Red Blood Cell Count 3.55 10^6/uL (4.70-6.10); Red Cell Dist. Width 13.5 % (11.5-14.5); White Blood Cell Count 17.6 10^3/uL (4.8-10.8)
--- NOTE | 2024-05-29 04:00 | PTCARENOTE ---
Patient resting in bed. Patient A+A+Ox3. AM lab work collected and sent. Patient with no c/o pain or discomfort. OOB in AM. Assessment/Interventions as documented.
[2024-05-29 04:20] LABS: Blood Urea Nitrogen 28 mg/dl (9-20); Calcium 8.5 mg/dl (8.4-10.2); Carbon Dioxide 31 mmol/L (22-30); Chloride 99 mmol/L (98-107); Estimated Creatinine Clearance 81 ml/min; Glucose 109 mg/dl (70-99); Magnesium 2.2 mg/dl (1.6-2.3); Potassium 4.1 mmol/L (3.5-5.1); Sodium 135 mmol/L (135-145); eGFR > 60.00
[2024-05-29] MEDS: TYLENOL PO (05:00)
--- NOTE | 2024-05-29 06:27 | W.PN.CT ---
Today's Communication / Plan
-
-pod #3
-in nsr 50s with Mobitz 1 AV block (Wenckebach). Holding Loressor and Amio
-pw dcd 05/28
-wt is up 5 lbs from preop - diuresed with 20 iv Lasix on 05/28 (UO 1250)
-started on Flomax 05/28 for urinary retention - follow
-Echo on 05/29 for MV follow-up
-Eliquis is restarted on 05/29 (was on Argatroban preop d/t +HIT and on Eliquis at home)
-current meds (ASA, Lipitor, Protonix)
-encourage IS, OOB
Assessment / Plan
-
-s/p Chordal sparing mitral valve replacement [31 mm Mccoy Mitris Resilia bioprosthesis]; ASD closure, done primarily; Left atrial appendage exclusion (45 mm clip); Open surgical left atrial maze [combination of RF ablation and cryo] on 05/26/[address] Stevens, pod #3
-Intraop JOHN: LVEF preop was 45% with significant regional wall motion abnormalities toward the anterior lateral wall. Following surgery, his EF remained the same at 45% with the same motion. At the conclusion of the case, his left atrial appendage
was totally occluded with no residual stump or flow. After coming off cardiopulmonary bypass, there is no residual perivalvular leak of the bioprosthetic valve, normal excursion of the leaflets, the same trace to mild aortic valve insufficiency that
was central, and no residual shunt on the ASD.
-Severe mitral valve insufficiency, type I with a MitraClip in place and severe annular dilatation
-S/p MitraClip for severe MR at [facility] 09/2019
-Dilated LV with mixed cardiomyopathy
-Mild AI
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
-Paroxysmal typical atrial flutter with RVR (Amiodarone d/c'd d/t elevated LFTs, on Eliquis as of 03/06/24)
-S/p Linq monitor since 01/03/24
-Chronic systolic and diastolic heart failure with dilated left ventricle
-LVEF 45-50% per JOHN 04/30/24
-History of ECMO with iatrogenic injury to right common carotid
-History of tracheostomy
-Hx CAD S/p large inferior and lateral wall [place] complicated by cardiogenic shock and ARDS 05/2019
-S/P PCI with Xience stent to LCx, 06/03/19
-No evidence of obstructive CAD by cath 05/22/24
-HTN
-HLD
-OSCAR (uses CPAP)
-GERD
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
-Hx DVT
-Hx Seizure disorder by EEG, Keppra stopped without recurrence of seizure since 12/2021
-S/p VDRF with respiratory failure with large symptomatic right pleural effusion s/p intubation 10/12/19, Bronc 10/13/19, extubated 10/15/19
-Acute postop blood loss anemia- stable
-Acute postop atelectasis
-Acute postop bradycardia, required pacing, then junctional rhythm 50s
-Acute postop urinary retention
Discussed patient care with: Nursing and Care Team
Subjective
-
Date of Service: May 29, 2024
Objective Data
-
PT 25.4 Sec (11.4-14.6) H 05/26/24 10:53
INR 2.33 05/26/24 10:53
APTT 89.8 Sec (23.4-35.0) H 05/26/24 10:53
Vital Signs
Vital Signs
Temp Pulse Resp BP Pulse Ox
98.5 F 61 16 107/52 95
05/28/24 22:15 05/28/24 22:30 10/03/24 22:15 05/28/24 22:15 05/28/24 22:15
CT Intake/Output/Weight
05/28/24 05/28/24 05/29/24
06:59 18:59 06:59
Intake Total 110 / 475.9 220 / 510 290 / 510
Output Total 150 / 1280 1320 / 1320
Balance -40 / -804.1 -1100 / -810 290 / -810
SaO2: 95
Physical Exam
-
General: Awake and AOx3
Cardiovascular: Regular rate & rhythm, No Murmurs and Rub
Respiratory: Decreased Breath Sounds
Sternum: Stable
Incision: Clean, Dry and Intact
Extremities: No Edema
Abdomen: soft, nontender, nondistended, + bowel sounds, no nausea
Data Reviewed
-
Lab Results: Results Reviewed
Medications: Active Meds Reviewed
Chest X-Ray: Report Reviewed and Image Reviewed
ECG: Report Reviewed and Image Reviewed
--- NOTE | 2024-05-29 08:00 | PTCARENOTE ---
Resumed care of patient from previous RN. OOB in chair at time of assessment. AAOx3. walking with in halls. doing very well. 97% Room air. wears his CPAP HS. SB/junctional/type 3/Second Degree Block. Heart rate 40-60's. Right IJ Cordis patent.
All surgical sites c/d/i. minimal complaints of pain. at bedside. will continue to monitor.
[2024-05-29] MEDS: LOW STRENGTH ASPIRIN 81 MG PO (09:22)
[2024-05-29] MEDS: FLOMAX 0.4 MG PO (09:22)
[2024-05-29] MEDS: PROTONIX 40 MG PO (09:22)
[2024-05-29] MEDS: LIPITOR 80 MG PO (09:22)
[2024-05-29] MEDS: NEURONTIN 100 MG PO ×3 (09:22→22:48)
[2024-05-29] MEDS: MAGNESIUM OXIDE 500 MG PO ×2 (09:22→20:46)
[2024-05-29] MEDS: LIDOCAINE 4% PATCH TOPICAL (09:23)
[2024-05-29] MEDS: KCL 20 MEQ PO (09:23)
[2024-05-29] MEDS: LASIX 20 MG IV (09:23)
[2024-05-29] MEDS: ELIQUIS 5 MG PO ×2 (09:23→20:46)
[2024-05-29] MEDS: BACTROBAN 2% OINTMENT 1 APPLIC NASAL ×2 (09:26→20:45)
[2024-05-29] MEDS: SENOKOT-S PO (09:31)
--- NOTE | 2024-05-29 09:34 | PN.CDI ---
CDI
- -
CDI:
Physician Documentation Request
Admit Date: 05/22/24 06:09
Dear Doctor Hilda,
Please review the following and provide your response in the progress notes.
Clinical Indicators:
PN, 05/29
#-pod #3
#...-wt is up 5 lbs from preop - diuresed with 20 iv Lasix on 05/28 (UO 1250)
#...-started on Flomax 05/28 for urinary retention - follow
#...-Chronic systolic and diastolic heart failure with dilated left ventricle
Based on the above and your clinical assessment, please provide a diagnosis for the above treatment of IV Lasix :
Acute on chronic systolic heart failure
Acute on chronic diastolic heart failure
Acute on chronic combined systolic and diastolic heart failure
Hypovolemia
Chronic systolic and diastolic heart failure
Other (please specify)
Medications:
Furosemide (Furosemide 20 Mg (10 Mg/Ml) 2 Ml Vial) 20 mg IV NOW STA
Stop: 05/28/24 08:57
Last Admin: 05/28/24 10:49 Dose: 20 mg
Furosemide (Furosemide 20 Mg (10 Mg/Ml) 2 Ml Vial) 20 mg IV NOW STA
Stop: 05/29/24 07:56
Last Admin: 05/29/24 09:23 Dose: 20 mg
Use of terms such as suspected, likely, concern for, or probable (associated with a specific diagnosis that is being evaluated, monitored, or treated as if it exists) are acceptable and can be coded in the inpatient setting, when documented at the
time of discharge.
Thank you,
Deysi Sesay RN BSN CCDS
CDI Specialist
please contact via tiger text
Please use your independent medical judgment in providing your response.
--- NOTE | 2024-05-29 10:20 | W.PN.UPDATE ---
Update Note
Progress Note Update
CDI query:
The diagnosis for the treatment of lasix is due to hypervolemia
--- NOTE | 2024-05-29 11:20 | W.PN.CARDCBS ---
Today's Communication / Plan
-
Still having some junctional rhythm/secondary AV block and bradycardia. Continue to hold all AV rebecca blockers.
Resuming Eliquis. Hemoglobin stable at 10.9. Platelet count at 102,000.
Overall looks well with no symptoms
Impression / Plan
-
PCP: Dr. Zachary Craig
Primary Electrolysist: Dr. Lima
Assessment:
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
No evidence of obstructive CAD by cath 05/22/24
Mitral regurgitation
s/p MitraClip for severe MR at [facility] 09/2019 with severe MR by JOHN 04/30/24, planned for bioprosthetic MVR, MAZE, JOELLE clip 05/26/24
s/p chordal sparing tissue MVR, JOELLE exclusion, ASD closure and surgical MAZE 05/26/24
Paroxysmal atrial fibrillation/typical atrial flutter
previous amiodarone therapy stopped due to elevated LFTs 09/2019
OAC with Eliquis
Chronic HFrEF
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
CAD
large inferior and lateral wall [place] complicated by cardiogenic shock and ARDS 05/2019
s/p 3.5 mm Xience to Circ 06/03/19
nonobstructive CAD by cath 05/22/24
Previous admission for sev MR, cardiogenic shock, ECMO and CVA [facility]
h/o left occipital, lateral temporal and left parietal lobe CVA at [facility] while on with residual expressive aphasia ECMO 09/2019
h/o VDRF with respiratory failure with large symptomatic right pleural effusion s/p intubation 10/12/19, Bronch 10/13/19, extubated 10/15/19
h/o Seizure disorder by EEG, Keppra stopped without recurrence of seizure since 12/2021
JOHN 04/30/24: EF 45 to 50%, moderately dilated LA, mildly dilated RA, MitraClip in place with eccentric jet of severe MR, mean gradient 2 mmHg, mild AR
JOHN 05/26/24: post-op, EF 50-55%, MVR well-seated without perivalvular leak and no MS. s/p JOELLE clip without flow
Plan:
-Still having episodes of heart block with bradycardia. Heart rates in the 40s to 50s. Continue to observe. Remains off all AV rebecca blockers.
-Patient is s/p tissue MVR, ASD repair, surgical MAZE and JOELLE exclusion on 05/26/24.
-No evidence of obstructive CAD by cath 05/22/24
-Eliquis 5 mg BID to resume 05/29/24 AM. Patient received argatroban bridge prior to tissue MVR due to h/o HIT.
-Platelet count at 102 and overall stable
Progress Note - Electrolysist
Subjective
Date of Service: May 29, 2024
Having some heart block on telemetry with ventricular rates in the 40s to 50. Denies dizziness or lightheadedness.
Objective
Labs:
05/29/24 03:41
05/29/24 03:41
Labs
Hgb 10.7 g/dL (13.0-18.0) L 05/29/24 03:41
Hct 30.9 % (39.0-52.0) L 05/29/24 03:41
Plt Count 102 10^3/uL (130-400) L 05/29/24 03:41
PT 25.4 Sec (11.4-14.6) H 05/26/24 10:53
INR 2.33 05/26/24 10:53
APTT 89.8 Sec (23.4-35.0) H 05/26/24 10:53
Sodium 135 mmol/L (135-145) 05/29/24 03:41
Potassium 4.1 mmol/L (3.5-5.1) 05/29/24 03:41
BUN 28 mg/dl (9-20) H 05/29/24 03:41
Creatinine 0.9 mg/dL (0.7-1.3) 05/29/24 03:41
Glucose 109 mg/dl (70-99) H 05/29/24 03:41
Vital Signs and I&O:
Vital Signs
Temp Pulse Resp BP Pulse Ox
98 F 51 16 129/61 98
05/29/24 08:00 05/29/24 11:00 05/29/24 03:40 05/29/24 10:24 05/29/24 08:00
Vital Signs
Temp Pulse Resp BP Pulse Ox
98 F 51 16 129/61 98
05/29/24 08:00 05/29/24 11:00 05/29/24 03:40 05/29/24 10:24 05/29/24 08:00
Intake & Output
05/27/24 05/28/24 05/29/24 05/30/24
06:59 06:59 06:59 06:59
Intake Total 2030.7 465.9 / 475.9 820 / 820 250 / 250
Output Total 1220 / 1280 730 / 1280 1320 / 1320
Balance 786.4 / 751.7 -264.1 / -804.1 -500 / -500 250 / 250
Physical Exam
Physical Exam
GEN: No distress, awake, Ox3
HEENT: supple, anicteric, mmm
LUNGS: CTA, no wheezes/rales
CV: Reg, S1/S2, no gallop
ABD: soft, BS+, NT/ND
EXT: No edema
NEURO: Gross non-focal
SKIN: No rash
--- NOTE | 2024-05-29 11:33 | CM ---
CM following for DC planning needs.
Met w/ patient at bedside. Patient is POD#[address] Surg[address]
Pt. reports that he is feeling well. Anticipate DC over w/e.
Reviewed post op MD appointments, Cardiac Rehab and visit from [facility] Transitional Care RN.
Will remain avail.
[2024-05-29] MEDS: NSS IV (14:22)
[2024-05-29] MEDS: TYLENOL 1000 MG PO ×2 (15:24→22:48)
[2024-05-29] MEDS: FERRLECIT 110 MG IV (15:25)
--- NOTE | 2024-05-29 16:14 | PTCARENOTE ---
no change in previous assessment. VSS. walking hallways. will continue to monitor.
[2024-05-29] MEDS: SENOKOT-S 1 TABLET PO (20:46)
--- NOTE | 2024-05-29 21:00 | PTCARENOTE ---
Report received from GAY Gamez. Walking rounds done. Pt in recliner chair. VS done. Pt assessed. Pt oriented x 4. Speech clear. Equal upper and lower extremity strength. Pt with hx CVA with residual deficits of expressive aphasia and R visual field
cut. Pt on room air. Sats 96%. BBS present. Clear and diminished to B bases. CDB and IS encouraged. Pt in Mobitz I rhythm. BP 106/57. Pt without c/o lightheadedness or dizziness in chair nor with standing/walking back to bed. Audible heart tones.
For pulse and wound assessments, see flowsheets. Belly soft, nontender. Normoactive bs x 4. Pt had BM today. Pt voided clear, yellow urine in toilet. at bedside, went home for evening. Pt given CHG cloth bath. Pt washed face and brushed teeth
with his . Pt helped back to bed with 2 RNs. Ongoing plan of care.
--- NOTE | 2024-05-29 23:30 | PTCARENOTE ---
CPAP placed on pt by RT. Pt called to RN c/o poor seal and discomfort to area adjacent to bridge of R side of nose. RT called to bedside to refit CPAP mask. Pt still c/o discomfort and poor seal to face. Pt declines CPAP for the evening. 2L/NC
placed onto pt. Sats 96%. 2200 meds given as scheduled. Dressing change to former CT sites done per protocol. Pt going to sleep for evening.
--- NOTE | 2024-05-30 03:00 | PTCARENOTE ---
VS done. See flowsheet. Pt sleeping.
[2024-05-30 05:23] VITALS: BP 116/62
[2024-05-30 05:24] VITALS: BMI 25.1
[2024-05-30] MEDS: TYLENOL 1000 MG PO (05:27)
--- NOTE | 2024-05-30 05:28 | PTCARENOTE ---
Labs drawn and sent. Pt helped to BR to void clear, yellow urine in toilet. Pt weighed on standing scale. Pt preferred to go back to bed for now. VS done. EKG to be done and show to Emma NAGY.
[2024-05-30 05:33] LABS: Hematocrit 29.6 % (39.0-52.0); Hemoglobin 10.2 g/dL (13.0-18.0); Mean Corp Hgb Conc. 34.5 g/dL (33.0-37.0); Mean Corpuscular Volume 87.1 fL (80.0-94.0); Mean Platelet Volume 10.9 fL (7.4-10.4); Platelet Count 120 10^3/uL (130-400); Red Cell Dist. Width 13.5 % (11.5-14.5); White Blood Cell Count 13.3 10^3/uL (4.8-10.8)
[2024-05-30 05:48] LABS: Blood Urea Nitrogen 22 mg/dl (9-20); Calcium 8.5 mg/dl (8.4-10.2); Carbon Dioxide 32 mmol/L (22-30); Chloride 100 mmol/L (98-107); Estimated Creatinine Clearance 91 ml/min; Glucose 94 mg/dl (70-99); Magnesium 2.2 mg/dl (1.6-2.3); Potassium 3.9 mmol/L (3.5-5.1); Sodium 137 mmol/L (135-145); eGFR > 60.00
[2024-05-30 06:00] VITALS: BMI 25.1
--- NOTE | 2024-05-30 06:53 | W.PN.CT ---
Today's Communication / Plan
-
-pod #4
-looks and feels well, ambulates in hallways
-follow rhythm- nsr 70s with 1st degree AVB, then intermittent Mobitz 1 AVB, and intermittent CHB with junctional escape (asymptomatic)
-holding Amio and BB
-Eliquis restarted 05/29
-diuresed with 40 iv Lasix 05/29 (UO unmeasured)-follow weight
-encourage IS, continue ambulation
Assessment / Plan
-
-s/p Chordal sparing mitral valve replacement [31 mm Mccoy Mitris Resilia bioprosthesis]; ASD closure, done primarily; Left atrial appendage exclusion (45 mm clip); Open surgical left atrial maze [combination of RF ablation and cryo] on 05/26/[address] Stevens, pod #4
-Intraop JOHN: LVEF preop was 45% with significant regional wall motion abnormalities toward the anterior lateral wall. Following surgery, his EF remained the same at 45% with the same motion. At the conclusion of the case, his left atrial appendage
was totally occluded with no residual stump or flow. After coming off cardiopulmonary bypass, there is no residual perivalvular leak of the bioprosthetic valve, normal excursion of the leaflets, the same trace to mild aortic valve insufficiency that
was central, and no residual shunt on the ASD.
-Severe mitral valve insufficiency, type I with a MitraClip in place and severe annular dilatation
-S/p MitraClip for severe MR at [facility] 09/2019
-Dilated LV with mixed cardiomyopathy
-Mild AI
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
-Paroxysmal typical atrial flutter with RVR (Amiodarone d/c'd d/t elevated LFTs, on Eliquis as of 03/06/24)
-S/p Linq monitor since 01/03/24
-Chronic systolic and diastolic heart failure with dilated left ventricle
-LVEF 45-50% per JOHN 04/30/24
-History of ECMO with iatrogenic injury to right common carotid
-History of tracheostomy
-Hx CAD S/p large inferior and lateral wall HI complicated by cardiogenic shock and ARDS 05/2019
-S/P PCI with Xience stent to LCx, 06/03/19
-No evidence of obstructive CAD by cath 05/22/24
-HTN
-HLD
-OSCAR (uses CPAP)
-GERD
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
-Hx DVT
-Hx Seizure disorder by EEG, Keppra stopped without recurrence of seizure since 12/2021
-S/p VDRF with respiratory failure with large symptomatic right pleural effusion s/p intubation 10/12/19, Bronc 10/13/19, extubated 10/15/19
-Acute postop blood loss anemia- stable
-Acute postop atelectasis
-Acute postop bradycardia, required pacing, then junctional rhythm 50s, intermittent Mobitz 1, intermittent complete heart block (asymptomatic, ambulates without sxs)
-Acute postop urinary retention
Discussed patient care with: Nursing and Care Team
Subjective
-
Date of Service: May 30, 2024
Objective Data
-
PT 25.4 Sec (11.4-14.6) H 05/26/24 10:53
INR 2.33 05/26/24 10:53
APTT 89.8 Sec (23.4-35.0) H 05/26/24 10:53
Vital Signs
Vital Signs
Temp Pulse Resp BP Pulse Ox
98.7 F 72 16 119/66 96
05/29/24 22:48 05/30/24 00:00 05/29/24 22:48 05/29/24 22:48 05/29/24 22:48
CT Intake/Output/Weight
05/29/24 05/29/24 05/30/24
06:59 18:59 06:59
Intake Total 600 / 820 260 / 290 30 / 290
Balance 600 / -500 260 / 290 30 / 290
SaO2: 96
Physical Exam
-
General: Awake and AOx3
Cardiovascular: Regular rate & rhythm, No Murmurs and Rub
Respiratory: Decreased Breath Sounds
Sternum: Stable
Incision: Clean, Dry and Intact
Abdomen: soft, nontender, nondistended, + bowel sounds, no nausea
Extremities: No Edema b/l
Data Reviewed
Data Reviewed
-
Lab Results: Results Reviewed
Medications: Active Meds Reviewed
Chest X-Ray: Report Reviewed and Image Reviewed
ECG: Report Reviewed and Image Reviewed
[2024-05-30 07:45] VITALS: BP 100/62
--- NOTE | 2024-05-30 08:11 | PTCARENOTE ---
Patient received from overnight stocker resting in bed, AAO X 3 - assisted oob to chair. NSR via cm, SaO2 @ 95% on RA. LIJ Cordis w/kvo infusing. All procedural sites stable. Patient updated to plan of care for the day, in agreement. See work list for
full assessment and interventions performed.
[2024-05-30] MEDS: LIDOCAINE 4% PATCH TOPICAL (08:14)
[2024-05-30] MEDS: BACTROBAN 2% OINTMENT 1 APPLIC NASAL (08:21)
[2024-05-30] MEDS: PROTONIX 40 MG PO (08:22)
[2024-05-30] MEDS: LOW STRENGTH ASPIRIN 81 MG PO (08:22)
[2024-05-30] MEDS: NEURONTIN 100 MG PO (08:23)
[2024-05-30] MEDS: FLOMAX 0.4 MG PO (08:23)
[2024-05-30] MEDS: ELIQUIS 5 MG PO (08:23)
[2024-05-30] MEDS: SENOKOT-S 1 TABLET PO (08:23)
[2024-05-30] MEDS: LIPITOR 80 MG PO (08:23)
[2024-05-30] MEDS: MAGNESIUM OXIDE 500 MG PO (08:23)
[2024-05-30 08:36] VITALS: BP 111/57
[2024-05-30 08:38] VITALS: BP 102/60
[2024-05-30 08:50] VITALS: BP 120/72
[2024-05-30 08:53] VITALS: BP 102/60; BP 120/72; PULSE 73; O2SAT 96; O2SAT 99
[2024-05-30] MEDS: DULCOLAX 10 MG PO (09:31)
--- NOTE | 2024-05-30 10:08 | W.PN.CARDCBS ---
Addendum entered and electronically signed by Aleksandr Sanchez MD 05/30/24 18:44:
I saw and examined the patient.
The All Around Patternmaker's note was reviewed and I agree with the note.
Comment: Briefly, 69-year-old man past medical history of MitraClip who presented for bioprosthetic mitral valve replacement on 05/26/2024
Doing well postoperatively, has been walking the halls without cardiovascular symptoms
Secondary AV block seen on telemetry over the past few days
On my review there are episodes of Wenckebach as well as 2:1 AV block
No high degree AV block or significant pauses
No presyncope or syncope with this
We agreed to have him monitor heart rate and rhythm both with his Apple Watch as well as implantable Linq monitor and to contact our office if he develops symptoms
Stable for discharge from my standpoint, outpatient cardiology follow-up has been arranged
Rest per Karon Lemon
Original Note:
Today's Communication / Plan
-
Keep off all AV rebecca blocking agents
Eliquis resumed 05/29/2024
Will monitor heart rate with Apple Watch and long-term implantable underwriter/Linq
Stable from cardiac standpoint for discharge
Outpatient cardiology follow-up arranged
Impression / Plan
-
PCP: Dr. Zachary Craig
Primary Certified Master Safe Technician: Dr. Lima
Assessment:
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
No evidence of obstructive CAD by cath 05/22/24
Mitral regurgitation
s/p MitraClip for severe MR at [facility] 09/2019 with severe MR by JOHN 04/30/24, planned for bioprosthetic MVR, MAZE, JOELLE clip 05/26/24
s/p chordal sparing tissue MVR, JOELLE exclusion, ASD closure and surgical MAZE 05/26/24
Paroxysmal atrial fibrillation/typical atrial flutter
previous amiodarone therapy stopped due to elevated LFTs 09/2019
OAC with Eliquis
Chronic HFrEF
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
CAD
large inferior and lateral wall NM complicated by cardiogenic shock and ARDS 05/2019
s/p 3.5 mm Xience to Circ 06/03/19
nonobstructive CAD by cath 05/22/24
Previous admission for sev MR, cardiogenic shock, ECMO and CVA [facility]
h/o left occipital, lateral temporal and left parietal lobe CVA at [facility] while on with residual expressive aphasia ECMO 09/2019
h/o VDRF with respiratory failure with large symptomatic right pleural effusion s/p intubation 10/12/19, Bronch 10/13/19, extubated 10/15/19
h/o Seizure disorder by EEG, Keppra stopped without recurrence of seizure since 12/2021
JOHN 04/30/24: EF 45 to 50%, moderately dilated LA, mildly dilated RA, MitraClip in place with eccentric jet of severe MR, mean gradient 2 mmHg, mild AR
JOHN 05/26/24: post-op, EF 50-55%, MVR well-seated without perivalvular leak and no MS. s/p JOELLE clip without flow
Plan:
-Patient is s/p tissue MVR, ASD repair, surgical MAZE and JOELLE exclusion on 05/26/24.
-No evidence of obstructive CAD by cath 05/22/24
-Patient feeling well. Ambulating around the halls without CP/SOB.
-Still having intermittent episodes of 2nd degree AVB type 1 and 2:1 AVB. There are no significant pauses. Heart rates in the 50's-70's. He is asymptomatic. Keep off AV rebecca blockers. Patient does have Linq monitor. Will continue to monitor heart
rate and rhythm with this. He also has an Apple Watch. He is aware that if he should have dizziness, lightheadedness, feeling of syncope he should press his Linq monitor to help correlate symptoms. If he is unstable he understands to return to
hospital.
-Patient did receive dose of IV Lasix 05/29/2024. Weight within 1 pound of admission weight. No evidence of acute heart failure. Chest x-ray pending.
-Resumed Eliquis 5 mg BID 05/29/24 AM. Hemoglobin stable at 10.2 and platelets improved to 120. Patient received argatroban bridge prior to tissue MVR due to h/o HIT.
Patient stable from cardiac standpoint for discharge.
Outpatient cardiology follow-up has been arranged
Progress Note - Certified Master Safe Technician
Subjective
Date of Service: May 30, 2024
Patient seen and examined. Patient's at bedside. Patient reports he is feeling well and able to ambulate around the unit without chest pain, shortness of breath, dizziness, lightheadedness.
Objective
Labs:
05/30/24 04:57
05/30/24 04:57
Labs
Hgb 10.2 g/dL (13.0-18.0) L 05/30/24 04:57
Hct 29.6 % (39.0-52.0) L 05/30/24 04:57
Plt Count 120 10^3/uL (130-400) L 05/30/24 04:57
PT 25.4 Sec (11.4-14.6) H 05/26/24 10:53
INR 2.33 05/26/24 10:53
APTT 89.8 Sec (23.4-35.0) H 05/26/24 10:53
Sodium 137 mmol/L (135-145) 05/30/24 04:57
Potassium 3.9 mmol/L (3.5-5.1) 05/30/24 04:57
BUN 22 mg/dl (9-20) H 05/30/24 04:57
Creatinine 0.8 mg/dL (0.7-1.3) 05/30/24 04:57
Glucose 94 mg/dl (70-99) 05/30/24 04:57
Vital Signs and I&O:
Vital Signs
Temp Pulse Resp BP Pulse Ox
98.6 F 78 16 120/72 99
05/30/24 07:51 05/30/24 09:30 05/30/24 07:51 05/30/24 08:50 05/30/24 08:50
Vital Signs
Temp Pulse Resp BP Pulse Ox
98.6 F 78 16 120/72 99
05/30/24 07:51 05/30/24 09:30 05/30/24 07:51 05/30/24 08:50 05/30/24 08:50
Intake & Output
05/28/24 05/29/24 05/30/24 05/31/24
06:59 06:59 06:59 06:59
Intake Total 465.9 / 475.9 820 / 820 370 / 370 270 / 270
Output Total 730 / 1280 1320 / 1320
Balance -264.1 / -804.1 -500 / -500 370 / 370 270 / 270
Physical Exam
Physical Exam
GEN: No distress, awake, Ox3
HEENT: supple, anicteric, mmm
LUNGS: CTA, no wheezes/rales
CV: Reg, S1/S2, no gallop, no murmur rub or gallop
ABD: soft, BS+, NT/ND
EXT: No edema, clubbing cyanosis
NEURO: Gross non-focal
SKIN: No rash, warm, dry, pink
--- NOTE | 2024-05-30 10:44 | W.DCSUMMARY ---
Discharge Summary
Discharge Data
Date of Admission: 05/22/24
Date of Discharge: 05/30/24
Total time spent discharging patient (in min): 35
-
Pending Results: No
Hospital Course
Primary care physician:
Dr. Zachary Craig
Outpatient electrical engineering technologist:
Dr. Lima
Inpatient consultants:
DCA, performance architect, oncology/hematology
Procedures:
1. Mitral valve replacement #31 mm bioprosthesis, ASD closure, left atrial appendage exclusion, and left atrial maze.
Primary Diagnosis:
1. Severe mitral valve insufficiency, dilated LV with mixed cardiomyopathy, and atrial fibrillation with RVR
Secondary Diagnoses:
1. History of heparin-induced thrombocytopenia
2. History of stroke with residual symptoms, word finding difficulties and encephalomalacia on recent head CT
3. History of myocardial infarction with residual regional wall motion abnormality
4. History of DVT and atrial fibrillation with RVR on chronic anticoagulation
5. Obstructive sleep apnea on CPAP
6. History of ECMO with iatrogenic injury to right common carotid
7. History of PCI and cardiac stenting in 2019
8. History of tracheostomy
9. Left heart catheter this admission/right heart cath this admission
10. Chronic systolic and diastolic heart failure with dilated left ventricle
HPI: 61-year-old male with extensive past medical history seen in the office with Dr. Stevens for severe mitral valve insufficiency. He presented on 05/22 for argatroban infusion and was taken to the OR on 05/26 for mitral valve replacement.
Hospital course: Patient was admitted on 05/22 for argatroban drip. Hematology was consulted about the use of heparin given his remote history of MEAGAN. On 05/26 patient went to the CV OR for a mitral valve replacement, ASD closure, maze, clip he
returned to the CVICU on Levophed, dobutamine, and Precedex. Due to his heparin allergy bivalirudin was used during the case and ACT's were trended postoperatively. He remained hemodynamically stable and was extubated by 1425. On 10/2
postoperative day #1 dobutamine was weaned to 1.5 and cardiac index is remained stable. Patient required atrial pacing for junctional rhythm and Amio and beta-blockers were placed on hold. Throughout the day dobutamine was weaned off and patient's
Beaver-Iggy catheter was removed. Pleural chest tube and Paul catheter was also removed. Patient's insulin drip was discontinued and he was downgraded to telemetry status. On 10/3 postoperative day #2, patient's chest tubes and epicardial wires
were pulled. He was diuresed with 40 mg of IV Lasix. Patient's heart rhythm was variable between sinus rhythm and second-degree heart block. Despite his heart rhythm his vital signs remained stable. On 10/4 postoperative day #3 patient's heart
rhythm progressed to complete heart block however vital signs remained stable. He was diuresed with 40 mg of IV Lasix and was started on Eliquis 5 mg twice daily. On 05/30 postoperative day #4 patient's heart rhythm continued to vary between
complete heart block, second-degree heart block, and first-degree AV block, however his blood pressure remained stable. A discussion between cardiology and Dr. Stevens deemed that he was safe to go home with his Linq monitor. 2 view chest x-ray was
performed and remained stable. And his medications were sent to his preferred pharmacy.
Home medication changes:
see below
Discharge Plan
-
Patient Disposition: Home (Routine Discharge)
Discharge Diagnosis/Procedures: Open surgical left atrial maze [combination of RF ablation and cryo]
3. Left atrial appendage exclusion
ASD closure, done primarily
Chordal sparing mitral valve replacement [31 mm bioprosthesis]
Condition: Good
Diet: Low Cholesterol and 2 Gram Sodium
Activity: No strenuous activity
Driving Restrictions: Not until seen by your Dr
Bathing Restrictions: OK to Shower
Other Services: Cardiac Rehab
Specialty Instructions: Weigh Daily- Call MD for wt gain/loss 3 lbs overnight/5 lbs in 1 week
Activity Restrictions/Additional Instructions:
ACTIVITY:
-No strenuous activity: no heavy lifting, pushing, pulling anything over 15 pounds for one month
-continue to use stairs as tolerated
DRIVING RESTRICTIONS:
-No driving for one month or until approved by your surgeon
WOUND CARE:
-Shower daily. Use soap & water.
-No lotions, creams or powders on incision area.
DIET:
-continue a low fat/low cholesterol diet.
-IF you are diabetic, continue carb controlled diet.
CARDIAC REHAB:
-Please make appointment to start in 5-6 weeks with your local hospital program. (See Cardiac Rehabilitation Discharge Booklet).
SPECIALTY INSTRUCTIONS:
-Weigh yourself daily. Call your physician for any weight gain/loss of 3 lbs overnight or 5 lbs in one week.
-REPORT any clicking noise or uneven appearance of your sternum to your surgeon immediately.
-If you smoke, you are instructed to quit. The [facility] smoking hotline phone number is [phone]
Referrals:
CT Transitional Care Nurse [Outside]
(
The Cardiothoracic Transitional Care Nurse will call you to set up a visit in 1-2 days.)
[facility]. Cardiac Rehab [Outside] - 07/09/24 1:00 pm
(Cardiac Rehab Orientation appointment is 07/09/24 (Th) at 1p
The Cardiac Rehab gym is located on the first floor of the [facility].)
Karon Lemon PA-C [Specified Professional Personl] - 07/20/24 10:00 am (* your appt on with [facility] Mcclain was cancelled)
Zachary Craig MD [Family Provider] -
Joshua Stevens MD [Active] - 07/02/24 3:00 pm
Additional Discharge Medication Instructions: Do not restart your amiodarone unless directed by a medical professional
Do not resume your tadalafil and sexual activity unless cleared by your surgeon
Prescriptions:
New
aspirin 81 mg Tablet,Chewable
81 mg PO DAILY Qty: 1 0RF
Continued
atorvastatin 80 MG tablet
80 mg PO DAILY
Eliquis 5 mg Tablet
5 mg PO BID
Tylenol Extra Strength 500 mg Powder In Packet
500 mg PO Q6HPRN PRN (Reason: mild pain)
amoxicillin 500 mg Capsule
2,000 mg PO .1HR PRIOR TO DENTAL PRN (Reason: dental procedures)
Held
tadalafil 20 mg Tablet
20 mg PO DAILYPRN PRN (Reason: ed)
Hold Instructions: Resume on 06/27/24. DO NOT RESUME SEXUAL ACTIVITY UNTIL CLEARED BY A DOCTOR
Discontinued
amiodarone 200 mg tablet
200 mg PO DAILY
Discharge Orders:
Discharge Patient (As Directed); Ordered 05/30/24
Ordered By: Vidya Rodriguez
Discharge Date and Time
Print Language: SCOTTISH
--- NOTE | 2024-05-30 11:28 | PTCARENOTE ---
Patient set up to shower, completed and dressed independently. Discharge instructions thoroughly reviewed w/patient and spouse, all questions answered. PIV removed. Patient and all belongings transported to waiting vehicle for d/c home.
== END 2024-05-30 11:36 | disposition home or self-care (01) | DRG 217 ==
LOC: CVICU 06:09
PROVIDERS: Anesthesiology; Clinical Nurse Specialist Acute Care; Internal Medicine Cardiovascular Disease; Internal Medicine Interventional Cardiology; Nurse Practitioner Adult Health; Physician Assistant Medical; ADMITTING PHYSICIAN Thoracic Surgery (Cardiothoracic Vascular Surgery); CONSULT PHYSICIAN Internal Medicine; FAMILY PHYSICIAN Family Medicine; OTHER PHYSICIAN Internal Medicine Hematology & Oncology
PROC: 5A09357 Assistance with Respiratory Ventilation, Less than 24 Consecutive Hours, Continuous Positive Airway Pressure (ICD-10-PCS; 2024-05-22)
PROC: B2151ZZ Fluoroscopy of Left Heart using Low Osmolar Contrast (ICD-10-PCS; 2024-05-22)
PROC: B2111ZZ Fluoroscopy of Multiple Coronary Arteries using Low Osmolar Contrast (ICD-10-PCS; 2024-05-22)
PROC: 4A023N8 Measurement of Cardiac Sampling and Pressure, Bilateral, Percutaneous Approach (ICD-10-PCS; 2024-05-22)
PROC: 02580ZZ Destruction of Conduction Mechanism, Open Approach (ICD-10-PCS; 2024-05-26)
PROC: 5A1221Z Performance of Cardiac Output, Continuous (ICD-10-PCS; 2024-05-26)
PROC: 02Q50ZZ Repair Atrial Septum, Open Approach (ICD-10-PCS; 2024-05-26)
PROC: 02L70CK Occlusion of Left Atrial Appendage with Extraluminal Device, Open Approach (ICD-10-PCS; 2024-05-26)
PROC: B24BZZ4 Ultrasonography of Heart with Aorta, Transesophageal (ICD-10-PCS; 2024-05-26)
PROC: 02RG08Z Replacement of Mitral Valve with Zooplastic Tissue, Open Approach (ICD-10-PCS; 2024-05-26)
DX: I34.0 Nonrheumatic mitral (valve) insufficiency (principal); D62 Acute posthemorrhagic anemia; I42.8 Other cardiomyopathies; Q21.10 Atrial septal defect, unspecified; I50.42 Chronic combined systolic (congestive) and diastolic (congestive) heart failure; I48.3 Typical atrial flutter; J98.11 Atelectasis; I44.2 Atrioventricular block, complete; I48.0 Paroxysmal atrial fibrillation; I25.10 Atherosclerotic heart disease of native coronary artery without angina pectoris; I27.20 Pulmonary hypertension, unspecified; D75.829 Heparin-induced thrombocytopenia, unspecified; R00.1 Bradycardia, unspecified; E87.70 Fluid overload, unspecified; N99.89 Other postprocedural complications and disorders of genitourinary system; Y83.2 Surgical operation with anastomosis, bypass or graft as the cause of abnormal reaction of the patient, or of later complication, without mention of misadventure at the time of the procedure; G40.909 Epilepsy, unspecified, not intractable, without status epilepticus; I11.0 Hypertensive heart disease with heart failure; E78.5 Hyperlipidemia, unspecified; G47.33 Obstructive sleep apnea (adult) (pediatric); I69.328 Other speech and language deficits following cerebral infarction; I25.2 Old myocardial infarction; Z79.01 Long term (current) use of anticoagulants; Z79.899 Other long term (current) drug therapy; Z86.718 Personal history of other venous thrombosis and embolism; Z92.81 Personal history of extracorporeal membrane oxygenation (ECMO)
CPT/HCPCS: 88305; 93308; 36415; 70450; 71045; 71046; 71275; 74174; 80048; 80053; 80076; 81003; 82248; 82330; 82565; 82805; 82810; 82947; 82962; 83036; 83735; 84132; 84302; 84520; 85014; 85018; 85025; 85027; 85049; 85610; 85730; 86850; 86900; 86901; 86920; 87070; 93005; 93312; 93320; 93321; 93325; 93460; 93880; 94002; 94660; 99152; 99153; C1894; J0883; J2916; Q9967

== ENCOUNTER 2024-07-24 15:59 | Outpatient (RCR) | payer MEDICARE, BC, SELFPAY | END 2024-07-24 23:59 | disposition home or self-care (01) | LOC: CRHB 15:59 | PROVIDERS: ATTENDING PHYSICIAN Internal Medicine Interventional Cardiology | DX: Z95.4 Presence of other heart-valve replacement (principal) | CPT/HCPCS: G0422; G0423 ==

== ENCOUNTER 2024-08-24 16:24 | Outpatient (RCR) | payer MEDICARE, BC, SELFPAY | END 2024-08-24 23:59 | disposition home or self-care (01) | LOC: CRHB 16:24 | PROVIDERS: ATTENDING PHYSICIAN Internal Medicine Interventional Cardiology; FAMILY PHYSICIAN Family Medicine | DX: I25.10 Atherosclerotic heart disease of native coronary artery without angina pectoris (principal); Z95.4 Presence of other heart-valve replacement | CPT/HCPCS: G0422; G0423 ==

== ENCOUNTER 2024-09-25 16:03 | Outpatient (RCR) | payer MEDICARE, BC, SELFPAY | END 2024-09-25 23:59 | disposition home or self-care (01) | LOC: CRHB 16:03 | PROVIDERS: ATTENDING PHYSICIAN Internal Medicine Interventional Cardiology; FAMILY PHYSICIAN Family Medicine | DX: I25.10 Atherosclerotic heart disease of native coronary artery without angina pectoris (principal); Z95.4 Presence of other heart-valve replacement | CPT/HCPCS: G0422 ==

== ENCOUNTER 2024-09-30 16:26 | Outpatient (RCR) | payer MEDICARE, BC, SELFPAY | END 2024-09-30 23:59 | disposition home or self-care (01) | LOC: CRHB 16:26 | PROVIDERS: ATTENDING PHYSICIAN Internal Medicine Interventional Cardiology | DX: Z95.4 Presence of other heart-valve replacement (principal) | CPT/HCPCS: G0422; G0423 ==

== ENCOUNTER → 2024-11-11 10:53 | Outpatient (REF) | payer MEDICARE, BC, SELFPAY | LOC: HWRAD 10:53 | PROVIDERS: ATTENDING PHYSICIAN Family Medicine | DX: Q34.1 Congenital cyst of mediastinum (principal) | CPT/HCPCS: 71250 ==

== ENCOUNTER → 2024-12-07 14:29 | Outpatient (REF) | payer MEDICARE, BC, SELFPAY | LOC: HWRCS 14:29 | PROVIDERS: ATTENDING PHYSICIAN Thoracic Surgery (Cardiothoracic Vascular Surgery) | DX: Z98.890 Other specified postprocedural states (principal) | CPT/HCPCS: 93306 ==

== ENCOUNTER → 2025-08-16 08:22 | Outpatient (REF) | payer MEDICARE, BC, SELFPAY | LOC: HWRCS 08:22 | PROVIDERS: ATTENDING PHYSICIAN Physician Assistant; FAMILY PHYSICIAN Family Medicine | DX: I34.0 Nonrheumatic mitral (valve) insufficiency (principal); Z95.2 Presence of prosthetic heart valve; I48.0 Paroxysmal atrial fibrillation; I25.10 Atherosclerotic heart disease of native coronary artery without angina pectoris; I25.5 Ischemic cardiomyopathy; R07.89 Other chest pain | CPT/HCPCS: 78452; 93017; A9500 ==